=== PATIENT | male | born 1945 | race Caucasian/White ===

== ENCOUNTER 2017-04-03 17:53 | Emergency (ER) | payer MEDICARE, OTHER ==
[2017-04-03] MEDS ORDERED: SODIUM CHLORIDE 0.9% 1,000 ML IV ONE (18:36)
[2017-04-03] MEDS ORDERED: METOPROLOL 5 MG/5 ML VIAL IVP STA ×4 (18:37→19:27)
[2017-04-03] MEDS ORDERED: METOPROLOL 5 MG/5 ML VIAL IVP ONE ×3 (18:39→19:35)
--- NOTE | 2017-04-03 18:40 | ED Physician Documentation ---
PD HPI CHEST PAIN - Stated complaint Stated Complaint: RAPID HB - Chief complaint Chief Complaint: Cardiac - History obtained from History obtained from: Patient - History of Present Illness Timing - onset: How many hours ago (2 1/2) Timing - onset during: Rest Timing - duration: Hours (2 1/2, could feel distinctly the onset of the heart rate going fast. Has had this briefly for 5-20 minutes a few times over the past couple of months. No findings on ECGs. Has Holter on and reportedly had brief episode yesterday which was resulted to Cardiology and was rapid atrial fib self limited. His Piano Regulator Inspector is changing his metoprolol dose and starting him on Coumadin tomorrow. Now today episode with persistence longer than any prior. Denies chest pain, lgihtheadedness, dyspnea.) Timing - details: Abrupt onset, Still present Quality: Pressure, Other (mostly feeling heart rate is going fast.). No: Sharp , Tearing, Pain Location: Substernal Radiation: No: Neck, Back, Abdominal Improved by: No: Rest Worsened by: Exertion (faster feelign with walking around but not significantly. ) Associated symptoms: Palpitations (fast HR). No: Shortness of air, Diaphoresis , Nausea, Vomiting, Feeling faint / dizzy, General Weakness, Cough Similar symptoms before: No diagnosis Recently seen: Clinic (seen by Paliwal, Cardiology and has Holter on for past several days.) Review of Systems Constitutional: denies: Fever, Chills Nose: denies: Rhinorrhea / runny nose, Congestion Throat: denies: Sore throat Cardiac: reports: Palpitations. denies: Chest pain / pressure, Pedal edema, Calf pain Respiratory: denies: Dyspnea, Cough, Wheezing GI: denies: Abdominal Pain, Nausea, Vomiting, Diarrhea Musculoskeletal: denies: Extremity pain, Extremity swelling Neurologic: denies: Generalized weakness, Focal weakness, Numbness, Near syncope , Altered mental status Endocrine: denies: Weight loss, Easy bruising / bleeding Immunocompromised: denies: Immunocompromised PD PAST MEDICAL HISTORY - Past Medical History Cardiovascular: None Respiratory: None Neuro: None Endocrine/Autoimmune: None - Present Medications Home Medications: Ambulatory Orders Medication Instructions Recorded Confirmed Atorvastatin [Lipitor] 40 mg DAILY 04/03/17 04/03/17 Lisinopril 20 mg PO DAILY 04/03/17 04/03/17 Metoprolol Tartrate 50 mg PO BID 04/03/17 04/03/17 - Allergies Allergies/Adverse Reactions: Allergies Allergy/AdvReac Type Severity Reaction Status Date / Time No Known Drug Allergies Allergy Verified 04/03/17 18:45 - Living Situation Living Situation: reports: With spouse/s.o. Living Arrangement: reports: At home - Social History Does the pt smoke?: No Does the pt drink ETOH?: No Does the pt have substance abuse?: No - Family History Family history: reports: Non contributory PD ED PE NORMAL - Vitals Vital signs reviewed: Yes - General General: Alert and oriented X 3, No acute distress, Well developed/nourished - HEENT HEENT: Atraumatic, Pharynx benign - Neck Neck: Supple, no meningeal sign, No adenopathy - Cardiac Cardiac: No murmur. No: RRR (irregular and very fast at 160s. ) - Respiratory Respiratory: Clear bilaterally - Abdomen Abdomen: Soft, Non tender - Male Male : Deferred - Rectal Rectal: Deferred - Back Back: No CVA TTP - Derm Derm: Normal color, Warm and dry - Extremities Extremities: No tenderness to palpate, Normal ROM s pain, No edema, No calf tenderness / cord - Neuro Neuro: Alert and oriented X 3, credit administrator 2-12 intact, No motor deficit, No sensory deficit, Normal speech - Psych Psych: Normal mood, Normal affect Results - Vitals Vitals: Vital Signs - 24 hr 04/03/17 04/03/17 04/03/17 17:58 18:15 18:30 Heart Rate 152 H 160 H Respiratory 18 18 20 Rate Blood Pressure 181/122 H 173/116 H 149/99 H O2 Saturation 97 99 04/03/17 04/03/17 04/03/17 18:43 18:50 19:00 Heart Rate 129 H 134 H 127 H Respiratory 18 20 16 Rate Blood Pressure 129/107 H 148/100 H 129/90 H O2 Saturation 96 04/03/17 04/03/17 04/03/17 19:03 19:13 19:18 Heart Rate 124 H 123 H 122 H Respiratory 20 18 19 Rate Blood Pressure 129/90 H 130/85 H 122/98 H O2 Saturation 95 95 95 04/03/17 04/03/17 04/03/17 19:35 19:42 19:50 Heart Rate 123 H 124 H 124 H Respiratory 18 16 18 Rate Blood Pressure 127/87 H 113/92 H 111/87 H O2 Saturation 97 97 96 04/03/17 20:58 Heart Rate 63 Respiratory 16 Rate Blood Pressure 116/63 O2 Saturation 96 Oxygen O2 Source Room air - Labs Labs: Laboratory Tests 04/03/17 04/03/17 04/03/17 18:22 18:22 18:22 WBC 11.2 H RBC 4.65 L Hgb 15.5 Hct 46.8 MCV 100.7 H MCH 33.3 H MCHC 33.0 RDW 13.4 Plt Count 267 MPV 8.1 Neut # 7.5 H Lymph # 2.6 [place] # 0.8 Eos # 0.2 Baso # 0.1 Absolute Nucleated RBC 0.01 Nucleated RBCs 0.1 Sodium 142 Potassium 4.0 Chloride 105 Carbon Dioxide 24 Anion Gap 13.0 BUN 17 Creatinine 0.9 Estimated GFR (MDRD) 83 L Glucose 104 H Calcium 9.3 Magnesium 1.9 Total Bilirubin 1.3 H AST 35 ALT 34 Alkaline Phosphatase 67 B-Natriuretic Peptide 329 H Total Protein 7.4 Albumin 4.3 Globulin 3.1 Albumin/Globulin Ratio 1.4 Lipase 32 PD MEDICAL DECISION MAKING - ED course Complexity details: re-evaluated patient (heart rate slowed from 160s to 123 with IV meds. Was very regular at this rate but no P waves, so presume 3:1 flutter. Was going to cardiovert and had explained it and consenting, when he converted to NSR 60s medically. BP and alertness good. He feels okay. Remained in NSR and so was discharged. Plan already in place for changing beta karen, starting coumadin, and seeing Cardiology in follow up. ), considered differential, d/w patient - Critical Care Time(min): 40 Comments: IV doses of beta blockers to slow heart rate. Preparation for cardioversion but he converted spontaneously just prior. Time Includes: Direct patient care, Reassess patient, Document care, Coordinate care Data interpretation: Labs, Pulse ox Departure - Departure Disposition: 01 Home, Self Care Clinical Impression: Paroxysmal atrial fibrillation with rapid ventricular response Condition: Stable Record reviewed to determine appropriate education?: Yes Instructions: ED Afib Follow-Up: Helio Hills MD [Primary Care Provider] - Isra Og MD [Physician No Access] - Comments: Continue the new medication regimen started by your Cardiology office. Other medications as usual. Drink lots of fluids. Return if recurrent fast heart rate that does not stop after 20-30 minutes or if you have chest pain, lightheadedness, trouble breathing with it. Follow up Cardiology office, call them tomorrow about this episode, though will probably show on the heart monitor , bring them the ECG copies as well. Discharge Date/Time: 04/03/17 21:14
[2017-04-03 18:44] LABS: BASOPHILS # (AUTO) 0.1 10^3/uL (0.0-0.1); BASOPHILS % (AUTO) 0.6 %; EOSINOPHILS # (AUTO) 0.2 10^3/uL (0.0-0.7); EOSINOPHILS % (AUTO) 1.9 %; HCT - HEMATOCRIT 46.8 % (42.0-52.0); HGB - HEMOGLOBIN 15.5 g/dL (14.0-18.0); LYMPHOCYTES # (AUTO) 2.6 10^3/uL (1.5-3.5); LYMPHOCYTES % (AUTO) 23.3 %; MEAN CORPUSCULAR HEMOGLOBIN 33.3 pg (27.0-31.0); MEAN CORPUSCULAR VOLUME 100.7 fL (80.0-94.0); MEAN PLATELET VOLUME 8.1 fL (7.4-11.4); MONOCYTES # (AUTO) 0.8 10^3/uL (0.0-1.0); NEUTROPHILS # (AUTO) 7.5 10^3/uL (1.5-6.6); NEUTROPHILS % (AUTO) 67.2 %; NUCLEATED RED BLOOD CELLS AUTO 0.1 /100WBC; RED BLOOD COUNT 4.65 10^6/uL (4.70-6.10); RED CELL DISTRIBUTION WIDTH 13.4 % (12.0-15.0); UNCORRECTED WHITE BLOOD COUNT 11.2 x10^3/uL; WHITE BLOOD COUNT 11.2 x10^3/uL (4.8-10.8)
[2017-04-03 18:52] LABS: ALBUMIN/GLOBULIN RATIO 1.4 (1.0-2.2); BILIRUBIN,TOTAL 1.3 mg/dL (0.2-1.0); CALCIUM 9.3 mg/dL (8.5-10.3); CREATININE 0.9 mg/dL (0.6-1.2); MAGNESIUM 1.9 mg/dL (1.7-2.8); TOTAL PROTEIN 7.4 g/dL (6.7-8.2)
[2017-04-03] MEDS ORDERED: PROPOFOL 200 MG/20 ML VIAL IVP STA (19:27)
[2017-04-03] MEDS ORDERED: MORPHINE 10 MG/ML VIAL IVP STA (19:28)
[2017-04-03] MEDS ORDERED: MORPHINE 10 MG/ML VIAL ONE (19:56)
[2017-04-03] MEDS ORDERED: PROPOFOL 200 MG/20 ML VIAL IVP ONE (19:56)
[2017-04-03 20:59] VITALS: BP 116/63
== END 2017-04-03 21:14 | disposition home or self-care (01) ==
LOC: ED 17:53
DX: I48.0 Paroxysmal atrial fibrillation (principal)
CPT/HCPCS: 36415; 80053; 83690; 83735; 83880; 85025; 93005; 96374; 96376; 99284; 99291

== ENCOUNTER 2017-04-04 09:56 | Emergency (ER) | payer MEDICARE, OTHER ==
[2017-04-04] MEDS ORDERED: METOPROLOL 5 MG/5 ML VIAL IVP STA (10:09)
[2017-04-04] MEDS ORDERED: METOPROLOL 5 MG/5 ML VIAL IVP ONE (10:17)
[2017-04-04 10:41] LABS: CALCIUM 9.3 mg/dL (8.5-10.3); CREATININE 0.9 mg/dL (0.6-1.2); POTASSIUM 4.1 mmol/L (3.5-5.0)
--- NOTE | 2017-04-04 10:45 | ED Physician Documentation ---
History of Present Illness - Stated complaint Stated Complaint: RAPID HB, LIGHTHEADED - Chief complaint Chief Complaint: Cardiac - History obtained from History obtained from: Patient - Additonal information Additional information: The patient is a 71-year-old male who presents with "racing heart rate" and transient lightheadedness, that has been "up and down all morning." He has a history of paroxysmal atrial fibrillation, and was seen here last night with an episode of A. fib. It converted last night with IV Lopressor. This morning the patient took his normal medication, including metoprolol, which was recently increased to 75 mg twice daily. He also drank 3-1/2 cups of coffee, which is his norm. He returns now because of recurrent atrial fibrillation with associated transient lightheadedness when standing. He denies chest pain or shortness of breath. He is anticoagulated, on warfarin. Review of Systems Constitutional: denies: Fever Ears: denies: Tinnitus/ringing Nose: denies: Congestion Cardiac: reports: Palpitations. denies: Chest pain / pressure Respiratory: denies: Dyspnea, Cough GI: denies: Abdominal Pain, Nausea, Vomiting : denies: Dysuria Skin: denies: Rash Musculoskeletal: denies: Back pain, Extremity swelling Neurologic: denies: Focal weakness, Numbness, Headache PD PAST MEDICAL HISTORY - Past Medical History Past Medical History: Yes Cardiovascular: Hypertension, High cholesterol, Atrial fibrillation, Arrhythmia Respiratory: None Neuro: None Endocrine/Autoimmune: None Musculoskeletal: Osteoarthritis Other Past Medical History: V tach episodes with A-fib w/RVR 04/03 - Past Surgical History Past Surgical History: Yes General: Cholecystectomy Ortho: Hip replacement - Present Medications Home Medications: Ambulatory Orders Medication Instructions Recorded Confirmed Atorvastatin [Lipitor] 40 mg DAILY 04/03/17 04/04/17 Lisinopril 20 mg PO DAILY 04/03/17 04/04/17 Metoprolol Tartrate 75 mg PO BID 04/03/17 04/04/17 Warfarin [Coumadin] 5 mg PO 1400 04/04/17 04/04/17 - Allergies Allergies/Adverse Reactions: Allergies Allergy/AdvReac Type Severity Reaction Status Date / Time No Known Drug Allergies Allergy Verified 04/04/17 10:29 - Social History Does the pt smoke?: No Smoking Status: Current every day smoker Does the pt drink ETOH?: No Does the pt have substance abuse?: No PD ED PE NORMAL - Vitals Vital signs reviewed: Yes (tachycardic) - General General: Alert and oriented X 3, Well developed/nourished - HEENT HEENT: Atraumatic, Pharynx benign - Neck Neck: No adenopathy, No JVD - Cardiac Cardiac: No murmur, Other (Rapid rate, irregularly irregular rhythm.) - Respiratory Respiratory: No respiratory distress, Clear bilaterally - Abdomen Abdomen: Soft, Non tender - Back Back: No CVA TTP - Derm Derm: No rash - Extremities Extremities: No edema, No calf tenderness / cord - Neuro Neuro: Alert and oriented X 3, No motor deficit, No sensory deficit, Normal speech Results - Vitals Vitals: Vital Signs - 24 hr 04/04/17 04/04/17 04/04/17 10:01 10:15 10:20 Temperature 36.6 C Heart Rate 153 H 143 H 138 H Respiratory 20 16 18 Rate Blood Pressure 151/102 H 169/90 H 159/128 H O2 Saturation 99 04/04/17 04/04/17 04/04/17 10:25 10:33 10:35 Temperature Heart Rate 128 H 124 H 63 Respiratory 16 16 Rate Blood Pressure 148/95 H 148/95 H 131/67 H O2 Saturation 98 98 04/04/17 12:27 Temperature 36.5 C Heart Rate 68 Respiratory 14 Rate Blood Pressure 118/57 L O2 Saturation 98 Oxygen O2 Source Room air - EKG (time done) 10:08 Rate: Rate (enter#) (142) Rhythm: Atrial fibrillation [place]: Normal Computer interpretation: Agree with computer 11:37 Rate: Rate (enter#) (54) Rhythm: NSR, Other (supraventricular bigeminy.) [place]: Normal Intervals: Normal AR Ischemia: ST depression (Borderline ST depression in anterior leads V3, V4.) Compare to prior EKG: Changed from prior EKG (No longer in atrial fibrillation.) Computer interpretation: Agree with computer - Labs Labs: Laboratory Tests 04/04/17 04/04/17 04/04/17 10:13 10:13 10:13 Sodium 141 Potassium 4.1 Chloride 105 Carbon Dioxide 26 Anion Gap 10.0 BUN 19 Creatinine 0.9 Estimated GFR (MDRD) 83 L Glucose 127 H Calcium 9.3 Troponin I < 0.04 TSH 0.82 PD MEDICAL DECISION MAKING - ED course Complexity details: reviewed old records, reviewed results, re-evaluated patient , considered differential, d/w patient ED course: The patient's presentation is significant for recurrent atrial fibrillation with rapid ventricular response. Chemistry panel reveals normal electrolytes, troponin is negative, and TSH is within normal limits. Treatment in the emergency department included administration of IV metoprolol, 5 mg. The patient's rhythm converted to normal sinus with this treatment. Repeat electrocardiogram reveals no ischemic abnormalities. I advised him that decreasing his caffeine intake may decrease the propensity for recurrent atrial fibrillation. He will continue taking the recently increased dose of metoprolol. I discussed with him potentially worrisome signs or symptoms that should prompt reevaluation in the emergency department. Departure - Departure Disposition: 01 Home, Self Care Clinical Impression: Paroxysmal atrial fibrillation with rapid ventricular response Condition: Stable Instructions: ED Afib Follow-Up: Helio Hills MD [Primary Care Provider] - Isra Og MD [Physician No Access] - Comments: Continue metoprolol as recently adjusted by your fig caprifier. Decrease caffeine intake. Follow up with your fig caprifier as planned. Return to the emergency department if you develop recurrent persistent tachycardia, chest pain, shortness of breath, or otherwise worsening symptoms. Discharge Date/Time: 04/04/17 12:27
[2017-04-04 12:29] VITALS: BP 118/57
== END 2017-04-04 12:27 | disposition home or self-care (01) ==
LOC: ED 09:56
DX: I48.0 Paroxysmal atrial fibrillation (principal); I10 Essential (primary) hypertension; F17.200 Nicotine dependence, unspecified, uncomplicated; Z79.01 Long term (current) use of anticoagulants; Z96.649 Presence of unspecified artificial hip joint
CPT/HCPCS: 36415; 80048; 84443; 84484; 93005; 96374; 99284

== ENCOUNTER 2017-06-23 10:53 | Outpatient (CLI) | payer MEDICARE, OTHER | END 2017-06-23 10:54 | disposition home or self-care (01) | LOC: SC 10:53 | PROVIDERS: ATTEND Internal Medicine Pulmonary Disease | DX: I10 Essential (primary) hypertension (principal); I48.0 Paroxysmal atrial fibrillation; E66.3 Overweight | CPT/HCPCS: 99203; G0463; 99212 ==

== ENCOUNTER 2022-02-05 10:37 | Outpatient (CLI) | payer MEDICARE, OTHER ==
[2022-02-05 11:43] LABS: BASOPHILS # (AUTO) 0.1 10^3/uL (0.0-0.1); BASOPHILS % (AUTO) 0.7 %; EOSINOPHILS # (AUTO) 0.2 10^3/uL (0.0-0.7); EOSINOPHILS % (AUTO) 2.5 %; HCT - HEMATOCRIT 45.1 % (42.0-52.0); HGB - HEMOGLOBIN 14.5 g/dL (14.0-18.0); LYMPHOCYTES # (AUTO) 1.5 10^3/uL (1.5-3.5); LYMPHOCYTES % (AUTO) 16.5 %; MEAN CORPUSCULAR HEMOGLOBIN 32.7 pg (27.0-31.0); MEAN CORPUSCULAR HGB CONC 32.2 g/dL (32.0-36.0); MEAN CORPUSCULAR VOLUME 101.8 fL (80.0-94.0); MEAN PLATELET VOLUME 9.8 fL (7.4-11.4); MONOCYTES # (AUTO) 0.6 10^3/uL (0.0-1.0); MONOCYTES % (AUTO) 6.9 %; NEUTROPHILS # (AUTO) 6.8 10^3/uL (1.5-6.6); NEUTROPHILS % (AUTO) 73.1 %; PLT - PLATELET COUNT 293 10^3/uL (130-450); RED BLOOD COUNT 4.43 10^6/uL (4.70-6.10); RED CELL DISTRIBUTION WIDTH 13.2 % (12.0-15.0); WHITE BLOOD COUNT 9.2 x10^3/uL (4.8-10.8)
[2022-02-05 12:11] LABS: ALBUMIN 3.7 g/dL (3.2-5.5); ALBUMIN/GLOBULIN RATIO 0.9 (1.0-2.2); BILIRUBIN,TOTAL 0.9 mg/dL (0.2-1.0); CALCIUM 9.5 mg/dL (8.5-10.3); CREATININE 0.8 mg/dL (0.6-1.2); CRP - C-REACTIVE PROTEIN 3.1 mg/dL (0-1.0); POTASSIUM 4.6 mmol/L (3.5-5.0); TOTAL PROTEIN 7.6 g/dL (6.7-8.2); URIC ACID 5.8 mg/dL (2.6-7.2)
== END 2022-02-05 23:59 | disposition home or self-care (01) ==
LOC: LAB.N 10:37
PROVIDERS: ATTEND Registered Nurse
DX: R22.42 Localized swelling, mass and lump, left lower limb (principal)
CPT/HCPCS: 36415; 80053; 84550; 85025; 86140

== ENCOUNTER 2023-04-08 01:51 | Emergency (ER) | payer MEDICARE, OTHER ==
--- OUTSIDE RECORDS SUMMARY | 2023-04-08 02:00 | EXTERNAL MEDICAL SUMMARY RPT | Continuity of Care Document ---
Author Name Unknown Address [address] [place] [address] Phone Organization [facility] Address [address] [place] [address] Phone Care Team Providers Care Medical Manager Name Role Phone [place] Unavailable Unavailable Problems date description facility 2023-03-06 07:13 Scoliosis, unspecified [facility] 2023-03-06 07:13 Spondylosis without myelopathy or radiculopathy, [facility] 2023-03-06 08:06 Scoliosis, unspecified [facility] 2023-03-06 08:06 Spondylosis without myelopathy or radiculopathy, [facility] Results/Labs test date author facility value unit interpretation Result panel 1 (unknown) (no date) (unknown) (unknown) (no value) (units unknown) (unknown) (unknown) (no date) (unknown) (unknown) [id number] (units unknown) (unknown) (unknown) (no date) (unknown) (unknown) 02/10/23 (units unknown) (unknown) (unknown) (no date) (unknown) (unknown) 02/10/23] (units unknown) (unknown) (unknown) (no date) (unknown) (unknown) 05/22/22 [Hist ory Confirmed 02/10/23] (units unknown) (unknown) (unknown) (no date) (unknown) (unknown) 09/23/22 [Hist ory Confirmed 02/10/23] (units unknown) (unknown) (unknown) (no date) (unknown) (unknown) Accompanied by : Self / Same As Patient (units unknown) (unknown) (unknown) (no date) (unknown) (unknown) Age/Sex: 77 / M Date of Service: (units unknown) (unknown) (unknown) (no date) (unknown) (unknown) Allergies (units unknown) (unknown) (unknown) (no date) (unknown) (unknown) [place] [id number] (units unknown) (unknown) (unknown) (no date) (unknown) (unknown) Attending Dr: Estuardo Loving D.O. (units unknown) (unknown) (unknown) (no date) (unknown) (unknown) Brother Cancer (unit s unknown) (unknown) (unknown) (no date) (unknown) (unknown) Chronic anticoagulation (units unknown) (unknown) (unknown) (no date) (unknown) (unknown) Confirmed 02/10/23] (units unknown) (unknown) (unknown) (no date) (unknown) (unknown) : 4 Acct:[id number] (units unknown) (unknown) (unknown) (no date) (unknown) (unknown) Dementia (units unknown) (unknown) (unknown) (no date) (unknown) (unknown) Dept at [phone] (units unknown) (unknown) (unknown) (no date) (unknown) (unknown) Documented By: Estuardo Loving D.O. 02/10/23 1518 (units unknown) (unknown) (unknown) (no date) (unknown) (unknown) Draft (units unknown) (unknown) (unknown) (no date) (unknown) (unknown) Facet arthropa thy, lumbar (units unknown) (unknown) (unknown) (no date) (unknown) (unknown) Family History (units unknown) (unknown) (unknown) (no date) (unknown) (unknown) Father Lung disease (units unknown) (unknown) (unknown) (no date) (unknown) (unknown) Grandmother De ceased Cancer (units unknown) (unknown) (unknown) (no date) (unknown) (unknown) H/O Mohs micro graphic surgery for skin cancer (units unknown) (unknown) (unknown) (no date) (unknown) (unknown) History of car diac radiofrequency ablation (units unknown) (unknown) (unknown) (no date) (unknown) (unknown) History of chr onic atrial fibrillation (units unknown) (unknown) (unknown) (no date) (unknown) (unknown) History of hip surge ry (units unknown) (unknown) (unknown) (no date) (unknown) (unknown) Hx of cholecystectom y (units unknown) (unknown) (unknown) (no date) (unknown) (unknown) Intake Clinical Staf f (units unknown) (unknown) (unknown) (no date) (unknown) (unknown) Intake Note: (units unknown) (unknown) (unknown) (no date) (unknown) (unknown) Intake perform ed by: Juanis Brink (units unknown) (unknown) (unknown) (no date) (unknown) (unknown) Intake (units unknown) (unknown) (unknown) (no date) (unknown) (unknown) LUMBAR SPINE (units unknown) (unknown) (unknown) (no date) (unknown) (unknown) Loc: PAIN (units unknown) (unknown) (unknown) (no date) (unknown) (unknown) Lumbar stenosi s with neurogenic claudication (units unknown) (unknown) (unknown) (no date) (unknown) (unknown) Medical Histor y (units unknown) (unknown) (unknown) (no date) (unknown) (unknown) Medications (units unknown) (unknown) (unknown) (no date) (unknown) (unknown) Mother Hypertension (units unknown) (unknown) (unknown) (no date) (unknown) (unknown) PFSH (units unknown) (unknown) (unknown) (no date) (unknown) (unknown) Pain Visit (units unknown) (unknown) (unknown) (no date) (unknown) (unknown) Patient: Yann Godoy MR#: M (units unknown) (unknown) (unknown) (no date) (unknown) (unknown) Reason For Visit (un its unknown) (unknown) (unknown) (no date) (unknown) (unknown) Scoliosis (units unknown) (unknown) (unknown) (no date) (unknown) (unknown) Signed By: (units unknown) (unknown) (unknown) (no date) (unknown) (unknown) Sister Stroke (units unknown) (unknown) (unknown) (no date) (unknown) (unknown) Smoking Status : Former smoker (units unknown) (unknown) (unknown) (no date) (unknown) (unknown) Stroke (units unknown) (unknown) (unknown) (no date) (unknown) (unknown) Surgical Histo ry (units unknown) (unknown) (unknown) (no date) (unknown) (unknown) [facility] (units unknown) (unknown) (unknown) (no date) (unknown) (unknown) This note may have been all or partially generated using voice recognition (units unknown) (unknown) (unknown) (no date) (unknown) (unknown) Tobacco + Subs tance Use (units unknown) (unknown) (unknown) (no date) (unknown) (unknown) Tobacco Status (unit s unknown) (unknown) (unknown) (no date) (unknown) (unknown) Visit Reasons: 4M FOLLOW UP, LUMBAR SPINE (units unknown) (unknown) (unknown) (no date) (unknown) (unknown) [History Confi rmed 02/10/23] (units unknown) (unknown) (unknown) (no date) (unknown) (unknown) amiodarone All ergy (Intermediate, Verified 02/10/23 15:19) (units unknown) (unknown) (unknown) (no date) (unknown) (unknown) amlodipine 5 m g tablet 5 mg PO DAILY 05/22/22 [History Confirmed 02/10/23] (units unknown) (unknown) (unknown) (no date) (unknown) (unknown) apixaban 5 mg tablet (Eliquis) 5 mg PO DAILY 05/22/22 [History Confirmed (units unknown) (unknown) (unknown) (no date) (unknown) (unknown) aspirin 81 mg tablet,delayed release (Adult Low Dose Aspirin) 81 mg PO DAILY (units unknown) (unknown) (unknown) (no date) (unknown) (unknown) atorvastatin 4 0 mg tablet 40 mg PO BEDTIME 05/22/22 [History Confirmed 02/10/23] (units unknown) (unknown) (unknown) (no date) (unknown) (unknown) chlorthalidone 25 mg tablet 12.5 mg PO DAILY 09/23/22 [History Confirmed (units unknown) (unknown) (unknown) (no date) (unknown) (unknown) cholecalcifero l (vitamin D3) 25 mcg (1,000 unit) capsule 25 mcg PO DAILY (units unknown) (unknown) (unknown) (no date) (unknown) (unknown) folic acid 1 m g tablet 1 mg PO DAILY 09/23/22 [History Confirmed 02/10/23] (units unknown) (unknown) (unknown) (no date) (unknown) (unknown) have occurred. If there are any questions, please contact the Medical Records (units unknown) (unknown) (unknown) (no date) (unknown) (unknown) lisinopril 40 mg tablet 40 mg PO DAILY 05/22/22 [History Confirmed 02/10/23] (units unknown) (unknown) (unknown) (no date) (unknown) (unknown) magnesium 200 mg tablet 200 mg PO DAILY 05/22/22 [History Confirmed 02/10/23] (units unknown) (unknown) (unknown) (no date) (unknown) (unknown) may occur. Occ asional wrong-word or 'sound-alike' substitutions may have (units unknown) (unknown) (unknown) (no date) (unknown) (unknown) mecobalamin (v itamin B12) 5,000 mcg disintegrating tablet 5,000 mcg PO DAILY (units unknown) (unknown) (unknown) (no date) (unknown) (unknown) metoprolol suc cinate 50 mg tablet,extended release 24 hr tab PO 05/22/22 (units unknown) (unknown) (unknown) (no date) (unknown) (unknown) occurred due t o the inherent limitations of voice recognition software. Please (units unknown) (unknown) (unknown) (no date) (unknown) (unknown) omeprazole 20 mg capsule,delayed release 20 mg PO DAILY 05/22/22 [History (units unknown) (unknown) (unknown) (no date) (unknown) (unknown) potassium chlo ride 10 mEq capsule,extended release 10 meq PO DAILY 05/22/22 (units unknown) (unknown) (unknown) (no date) (unknown) (unknown) pyridoxine (vi tamin B6) 100 mg tablet 50 mg PO DAILY 05/22/22 [History Confirmed (units unknown) (unknown) (unknown) (no date) (unknown) (unknown) read the note carefully and recognize, using context, where these substitutions (units unknown) (unknown) (unknown) (no date) (unknown) (unknown) software. Alth ough every effort is made to edit content, container maker errors (units unknown) (unknown) (unknown) (no date) (unknown) (unknown) sotalol 80 mg tablet 80 mg PO DAILY 05/22/22 [History Confirmed 02/10/23] (units unknown) (unknown) (unknown) (no date) (unknown) (unknown) tamsulosin 0.4 mg capsule cap PO 05/22/22 [History Confirmed 02/10/23] (units unknown) (unknown) Result panel 2 (unknown) (no date) (unknown) (unknown) (no value) (units unknown) (unknown) (unknown) (no date) (unknown) (unknown) [id number] (units unknown) (unknown) (unknown) (no date) (unknown) (unknown) 02/10/23 (units unknown) (unknown) (unknown) (no date) (unknown) (unknown) 02/10/23] (units unknown) (unknown) (unknown) (no date) (unknown) (unknown) 05/22/22 [Hist ory Confirmed 02/10/23] (units unknown) (unknown) (unknown) (no date) (unknown) (unknown) 09/23/22 [Hist ory Confirmed 02/10/23] (units unknown) (unknown) (unknown) (no date) (unknown) (unknown) 15:27 (units unknown) (unknown) (unknown) (no date) (unknown) (unknown) Accompanied by : Self / Same As Patient (units unknown) (unknown) (unknown) (no date) (unknown) (unknown) Age/Sex: 77 / M Date of Service: (units unknown) (unknown) (unknown) (no date) (unknown) (unknown) Allergies (units unknown) (unknown) (unknown) (no date) (unknown) (unknown) [place] [address] (units unknown) (unknown) (unknown) (no date) (unknown) (unknown) Attending Dr: Estuardo Loving D.O. (units unknown) (unknown) (unknown) (no date) (unknown) (unknown) BMI 27.6 (units unknown) (unknown) (unknown) (no date) (unknown) (unknown) BP 130/78 (units unknown) (unknown) (unknown) (no date) (unknown) (unknown) Blood Pressure Location Rt brachial (units unknown) (unknown) (unknown) (no date) (unknown) (unknown) Brother Cancer (unit s unknown) (unknown) (unknown) (no date) (unknown) (unknown) Chronic anticoagulation (units unknown) (unknown) (unknown) (no date) (unknown) (unknown) Confirmed 02/10/23] (units unknown) (unknown) (unknown) (no date) (unknown) (unknown) : 4 Acct:[id number] (units unknown) (unknown) (unknown) (no date) (unknown) (unknown) Dementia (units unknown) (unknown) (unknown) (no date) (unknown) (unknown) Dept at . (units unknown) (unknown) (unknown) (no date) (unknown) (unknown) Documented By: Estuardo Loving D.O. 02/10/23 1518 (units unknown) (unknown) (unknown) (no date) (unknown) (unknown) Draft (units unknown) (unknown) (unknown) (no date) (unknown) (unknown) Facet arthropa thy, lumbar (units unknown) (unknown) (unknown) (no date) (unknown) (unknown) Family History (units unknown) (unknown) (unknown) (no date) (unknown) (unknown) Father Lung disease (units unknown) (unknown) (unknown) (no date) (unknown) (unknown) Grandmother De ceased Cancer (units unknown) (unknown) (unknown) (no date) (unknown) (unknown) H/O Mohs micro graphic surgery for skin cancer (units unknown) (unknown) (unknown) (no date) (unknown) (unknown) Height 5 ft 8.5 in ( units unknown) (unknown) (unknown) (no date) (unknown) (unknown) History of car diac radiofrequency ablation (units unknown) (unknown) (unknown) (no date) (unknown) (unknown) History of chr onic atrial fibrillation (units unknown) (unknown) (unknown) (no date) (unknown) (unknown) History of hip surge ry (units unknown) (unknown) (unknown) (no date) (unknown) (unknown) Hx of cholecystectom y (units unknown) (unknown) (unknown) (no date) (unknown) (unknown) Intake Clinical Staf f (units unknown) (unknown) (unknown) (no date) (unknown) (unknown) Intake Note: (units unknown) (unknown) (unknown) (no date) (unknown) (unknown) Intake perform ed by: Juanis Brink (units unknown) (unknown) (unknown) (no date) (unknown) (unknown) Intake (units unknown) (unknown) (unknown) (no date) (unknown) (unknown) Is patient in pain?: Yes (HERE FOR LUMBAR AND LBP) Pain scale (1-10): 4 (units unknown) (unknown) (unknown) (no date) (unknown) (unknown) LUMBAR SPINE (units unknown) (unknown) (unknown) (no date) (unknown) (unknown) Loc: PAIN (units unknown) (unknown) (unknown) (no date) (unknown) (unknown) Lumbar stenosi s with neurogenic claudication (units unknown) (unknown) (unknown) (no date) (unknown) (unknown) Medical Histor y (units unknown) (unknown) (unknown) (no date) (unknown) (unknown) Medications (units unknown) (unknown) (unknown) (no date) (unknown) (unknown) Mother Hypertension (units unknown) (unknown) (unknown) (no date) (unknown) (unknown) Oxygen Deliver y Method room air (units unknown) (unknown) (unknown) (no date) (unknown) (unknown) PFSH (units unknown) (unknown) (unknown) (no date) (unknown) (unknown) Pain Scale (units unknown) (unknown) (unknown) (no date) (unknown) (unknown) Pain Visit (units unknown) (unknown) (unknown) (no date) (unknown) (unknown) Patient: Yann Godoy MR#: M (units unknown) (unknown) (unknown) (no date) (unknown) (unknown) Position Sitting (un its unknown) (unknown) (unknown) (no date) (unknown) (unknown) Pulse 78 (units unknown) (unknown) (unknown) (no date) (unknown) (unknown) Pulse Oximetry (%) 1 00 (units unknown) (unknown) (unknown) (no date) (unknown) (unknown) Pulse Source Monitor (units unknown) (unknown) (unknown) (no date) (unknown) (unknown) Reason For Visit (un its unknown) (unknown) (unknown) (no date) (unknown) (unknown) Scoliosis (units unknown) (unknown) (unknown) (no date) (unknown) (unknown) Signed By: (units unknown) (unknown) (unknown) (no date) (unknown) (unknown) Sister Stroke (units unknown) (unknown) (unknown) (no date) (unknown) (unknown) Smoking Status : Former smoker (units unknown) (unknown) (unknown) (no date) (unknown) (unknown) Stroke (units unknown) (unknown) (unknown) (no date) (unknown) (unknown) Surgical Histo ry (units unknown) (unknown) (unknown) (no date) (unknown) (unknown) Temp 97.7 F (units unknown) (unknown) (unknown) (no date) (unknown) (unknown) Temp Source Te mporal Artery Scan (units unknown) (unknown) (unknown) (no date) (unknown) (unknown) [facility] (units unknown) (unknown) (unknown) (no date) (unknown) (unknown) This note may have been all or partially generated using voice recognition (units unknown) (unknown) (unknown) (no date) (unknown) (unknown) Tobacco + Subs tance Use (units unknown) (unknown) (unknown) (no date) (unknown) (unknown) Tobacco Status (unit s unknown) (unknown) (unknown) (no date) (unknown) (unknown) Visit Reasons: 4M FOLLOW UP, LUMBAR SPINE (units unknown) (unknown) (unknown) (no date) (unknown) (unknown) Vitals (units unknown) (unknown) (unknown) (no date) (unknown) (unknown) Weight 184 lb (units unknown) (unknown) (unknown) (no date) (unknown) (unknown) [History Confi rmed 02/10/23] (units unknown) (unknown) (unknown) (no date) (unknown) (unknown) amiodarone All ergy (Intermediate, Verified 02/10/23 15:19) (units unknown) (unknown) (unknown) (no date) (unknown) (unknown) amlodipine 5 m g tablet 5 mg PO DAILY 05/22/22 [History Confirmed 02/10/23] (units unknown) (unknown) (unknown) (no date) (unknown) (unknown) apixaban 5 mg tablet (Eliquis) 5 mg PO DAILY 05/22/22 [History Confirmed (units unknown) (unknown) (unknown) (no date) (unknown) (unknown) aspirin 81 mg tablet,delayed release (Adult Low Dose Aspirin) 81 mg PO DAILY (units unknown) (unknown) (unknown) (no date) (unknown) (unknown) atorvastatin 4 0 mg tablet 40 mg PO BEDTIME 05/22/22 [History Confirmed 02/10/23] (units unknown) (unknown) (unknown) (no date) (unknown) (unknown) chlorthalidone 25 mg tablet 12.5 mg PO DAILY 09/23/22 [History Confirmed (units unknown) (unknown) (unknown) (no date) (unknown) (unknown) cholecalcifero l (vitamin D3) 25 mcg (1,000 unit) capsule 25 mcg PO DAILY (units unknown) (unknown) (unknown) (no date) (unknown) (unknown) folic acid 1 m g tablet 1 mg PO DAILY 09/23/22 [History Confirmed 02/10/23] (units unknown) (unknown) (unknown) (no date) (unknown) (unknown) have occurred. If there are any questions, please contact the Medical Records (units unknown) (unknown) (unknown) (no date) (unknown) (unknown) lisinopril 40 mg tablet 40 mg PO DAILY 05/22/22 [History Confirmed 02/10/23] (units unknown) (unknown) (unknown) (no date) (unknown) (unknown) magnesium 200 mg tablet 200 mg PO DAILY 05/22/22 [History Confirmed 02/10/23] (units unknown) (unknown) (unknown) (no date) (unknown) (unknown) may occur. Occ asional wrong-word or 'sound-alike' substitutions may have (units unknown) (unknown) (unknown) (no date) (unknown) (unknown) mecobalamin (v itamin B12) 5,000 mcg disintegrating tablet 5,000 mcg PO DAILY (units unknown) (unknown) (unknown) (no date) (unknown) (unknown) metoprolol suc cinate 50 mg tablet,extended release 24 hr tab PO 05/22/22 (units unknown) (unknown) (unknown) (no date) (unknown) (unknown) occurred due t o the inherent limitations of voice recognition software. Please (units unknown) (unknown) (unknown) (no date) (unknown) (unknown) omeprazole 20 mg capsule,delayed release 20 mg PO DAILY 05/22/22 [History (units unknown) (unknown) (unknown) (no date) (unknown) (unknown) potassium chlo ride 10 mEq capsule,extended release 10 meq PO DAILY 05/22/22 (units unknown) (unknown) (unknown) (no date) (unknown) (unknown) pyridoxine (vi tamin B6) 100 mg tablet 50 mg PO DAILY 05/22/22 [History Confirmed (units unknown) (unknown) (unknown) (no date) (unknown) (unknown) read the note carefully and recognize, using context, where these substitutions (units unknown) (unknown) (unknown) (no date) (unknown) (unknown) software. Alth ough every effort is made to edit content, container maker errors (units unknown) (unknown) (unknown) (no date) (unknown) (unknown) sotalol 80 mg tablet 80 mg PO DAILY 05/22/22 [History Confirmed 02/10/23] (units unknown) (unknown) (unknown) (no date) (unknown) (unknown) tamsulosin 0.4 mg capsule cap PO 05/22/22 [History Confirmed 02/10/23] (units unknown) (unknown) Result panel 3 (unknown) (no date) (unknown) (unknown) (no value) (units unknown) (unknown) (unknown) (no date) (unknown) (unknown) (1) Chronic anticoagulation: (units unknown) (unknown) (unknown) (no date) (unknown) (unknown) (2) History of chronic atrial fibrillation: (units unknown) (unknown) (unknown) (no date) (unknown) (unknown) (3) Scoliosis: (unit s unknown) (unknown) (unknown) (no date) (unknown) (unknown) (4) Facet arth ropathy, lumbar: (units unknown) (unknown) (unknown) (no date) (unknown) (unknown) (5) Lumbar ashkan nosis with neurogenic claudication: (units unknown) (unknown) (unknown) (no date) (unknown) (unknown) (6) History of cardiac radiofrequency ablation: (units unknown) (unknown) (unknown) (no date) (unknown) (unknown) (Modic type I and Modic type II changes). At least moderate disc bulge is seen, (units unknown) (unknown) (unknown) (no date) (unknown) (unknown) [id number] (units unknown) (unknown) (unknown) (no date) (unknown) (unknown) 02/10/23 (units unknown) (unknown) (unknown) (no date) (unknown) (unknown) 02/10/23] (units unknown) (unknown) (unknown) (no date) (unknown) (unknown) 05/22/22 [Hist ory Confirmed 02/10/23] (units unknown) (unknown) (unknown) (no date) (unknown) (unknown) 09/19/2020, 8:00. (u nits unknown) (unknown) (unknown) (no date) (unknown) (unknown) 09/23/22 [Hist ory Confirmed 02/10/23] (units unknown) (unknown) (unknown) (no date) (unknown) (unknown) 15:27 (units unknown) (unknown) (unknown) (no date) (unknown) (unknown) 5:03. Outside Film, CR, XR LUMBAR SPINE WITH OBLIQUES PLUS FLEXION EXTENSION, (units unknown) (unknown) (unknown) (no date) (unknown) (unknown) Accompanied by : Self / Same As Patient (units unknown) (unknown) (unknown) (no date) (unknown) (unknown) Age/Sex: 77 / M Date of Service: (units unknown) (unknown) (unknown) (no date) (unknown) (unknown) All of his que stions were answered to the best my ability is in agreement with (units unknown) (unknown) (unknown) (no date) (unknown) (unknown) All other syst ems reviewed and are negative except as noted in HPI. (units unknown) (unknown) (unknown) (no date) (unknown) (unknown) Allergies (units unknown) (unknown) (unknown) (no date) (unknown) (unknown) [place] [address] (units unknown) (unknown) (unknown) (no date) (unknown) (unknown) Approved by: Piedad Guerra M.D. on 01/23/2022 at 11:39 (units unknown) (unknown) (unknown) (no date) (unknown) (unknown) Approved by: Jimena Oden M.D. on 03/20/2022 at 10:01 (units unknown) (unknown) (unknown) (no date) (unknown) (unknown) Assessment + Plan (u nits unknown) (unknown) (unknown) (no date) (unknown) (unknown) Attending Dr: Estuardo Loving D.O. (units unknown) (unknown) (unknown) (no date) (unknown) (unknown) BMI 27.6 (units unknown) (unknown) (unknown) (no date) (unknown) (unknown) BP 130/78 (units unknown) (unknown) (unknown) (no date) (unknown) (unknown) Blood Pressure Location Rt brachial (units unknown) (unknown) (unknown) (no date) (unknown) (unknown) Bones: Extensi ve degenerative change. Multilevel joint space obliteration and (units unknown) (unknown) (unknown) (no date) (unknown) (unknown) Brother Cancer (unit s unknown) (unknown) (unknown) (no date) (unknown) (unknown) COMPARISON: Ou tside Film, MR, MR LUMBAR SPINE WITHOUT CONTRAST, 09/14/2020, (units unknown) (unknown) (unknown) (no date) (unknown) (unknown) Yann and I did review his very positive response with her bilateral L4-5 L5 (units unknown) (unknown) (unknown) (no date) (unknown) (unknown) Chronic anticoagulation (units unknown) (unknown) (unknown) (no date) (unknown) (unknown) Compared to th e outside 2020 images, these imaging findings are believed to be (units unknown) (unknown) (unknown) (no date) (unknown) (unknown) Confirmed 02/10/23] (units unknown) (unknown) (unknown) (no date) (unknown) (unknown) : 4 Acct:[id number] (units unknown) (unknown) (unknown) (no date) (unknown) (unknown) DTR's symmetric. (un its unknown) (unknown) (unknown) (no date) (unknown) (unknown) Dementia (units unknown) (unknown) (unknown) (no date) (unknown) (unknown) Denies recent trauma, fever or weight loss of unknown origin, immunocompromise (units unknown) (unknown) (unknown) (no date) (unknown) (unknown) Dense atherosc lerotic calcifications. (units unknown) (unknown) (unknown) (no date) (unknown) (unknown) Dept at . (units unknown) (unknown) (unknown) (no date) (unknown) (unknown) Documented By: Estuardo Loving D.O. 02/10/23 1518 (units unknown) (unknown) (unknown) (no date) (unknown) (unknown) Draft (units unknown) (unknown) (unknown) (no date) (unknown) (unknown) EKTA due to his use of Eliquis elected to proceed with facet mediated (units unknown) (unknown) (unknown) (no date) (unknown) (unknown) Endorses chron ic atrial fibrillation, chronic anticoagulation, lumbar stenosis (units unknown) (unknown) (unknown) (no date) (unknown) (unknown) Exam Narrative (unit s unknown) (unknown) (unknown) (no date) (unknown) (unknown) Exam Narrative: (uni ts unknown) (unknown) (unknown) (no date) (unknown) (unknown) Exam (units unknown) (unknown) (unknown) (no date) (unknown) (unknown) FINDINGS: (units unknown) (unknown) (unknown) (no date) (unknown) (unknown) Facet arthropa thy, lumbar (units unknown) (unknown) (unknown) (no date) (unknown) (unknown) Family History (units unknown) (unknown) (unknown) (no date) (unknown) (unknown) Father Lung disease (units unknown) (unknown) (unknown) (no date) (unknown) (unknown) Flexion/extens ion: There is normal range of motion, with preserved normal (units unknown) (unknown) (unknown) (no date) (unknown) (unknown) Gait: Full weightbearing. No assistive device. Stooped Gait Posture due to (units unknown) (unknown) (unknown) (no date) (unknown) (unknown) General: The p atient is in no obvious distress. Normal affect. Fully (units unknown) (unknown) (unknown) (no date) (unknown) (unknown) Grandmother De ceased Cancer (units unknown) (unknown) (unknown) (no date) (unknown) (unknown) H/O Mohs micro graphic surgery for skin cancer (units unknown) (unknown) (unknown) (no date) (unknown) (unknown) He has done ve ry well status post bilateral L4-5 L5-S1 facet joint injections (units unknown) (unknown) (unknown) (no date) (unknown) (unknown) Height 5 ft 8.5 in ( units unknown) (unknown) (unknown) (no date) (unknown) (unknown) History of car diac radiofrequency ablation (units unknown) (unknown) (unknown) (no date) (unknown) (unknown) History of chr onic atrial fibrillation (units unknown) (unknown) (unknown) (no date) (unknown) (unknown) History of hip surge ry (units unknown) (unknown) (unknown) (no date) (unknown) (unknown) Hx of cholecystectom y (units unknown) (unknown) (unknown) (no date) (unknown) (unknown) IMPRESSION: Ad vanced degenerative change. No abnormal motion on flexion and (units unknown) (unknown) (unknown) (no date) (unknown) (unknown) IMPRESSION: Mu ltiple levels of relatively prominent lumbar spine degenerative (units unknown) (unknown) (unknown) (no date) (unknown) (unknown) INDICATIONS: pain (u nits unknown) (unknown) (unknown) (no date) (unknown) (unknown) Informed conse nt was obtained today without guarantees or assurances of complete (units unknown) (unknown) (unknown) (no date) (unknown) (unknown) Intake Clinical Staf f (units unknown) (unknown) (unknown) (no date) (unknown) (unknown) Intake Note: (units unknown) (unknown) (unknown) (no date) (unknown) (unknown) Intake perform ed by: Juanis Brink (units unknown) (unknown) (unknown) (no date) (unknown) (unknown) Intake (units unknown) (unknown) (unknown) (no date) (unknown) (unknown) Is patient in pain?: Yes (HERE FOR LUMBAR AND LBP) Pain scale (1-10): 4 (units unknown) (unknown) (unknown) (no date) (unknown) (unknown) L4-L5: Moderat e to severe loss of disc height and disc signal can be seen. (units unknown) (unknown) (unknown) (no date) (unknown) (unknown) L5-S1: There i s at least moderate loss of disc height and disc signal . Moderate (units unknown) (unknown) (unknown) (no date) (unknown) (unknown) LUMBAR SPINE (units unknown) (unknown) (unknown) (no date) (unknown) (unknown) Left Lower Ext remity: No edema, joint effusion or atrophy. tenderness over the (units unknown) (unknown) (unknown) (no date) (unknown) (unknown) Left Upper Ext remity: Left upper extremity exam shows grossly normal alignment, (units unknown) (unknown) (unknown) (no date) (unknown) (unknown) Loc: PAIN (units unknown) (unknown) (unknown) (no date) (unknown) (unknown) Lumbar stenosi s with neurogenic claudication (units unknown) (unknown) (unknown) (no date) (unknown) (unknown) MSK: System re viewed and no additional complaints, except as documented. (units unknown) (unknown) (unknown) (no date) (unknown) (unknown) Medical Histor y (units unknown) (unknown) (unknown) (no date) (unknown) (unknown) Medications (units unknown) (unknown) (unknown) (no date) (unknown) (unknown) Mother Hypertension (units unknown) (unknown) (unknown) (no date) (unknown) (unknown) Neuro: System reviewed and no additional complaints, except as documented. (units unknown) (unknown) (unknown) (no date) (unknown) (unknown) Neurologic: Se nsation is grossly intact to light touch throughout the upper and (units unknown) (unknown) (unknown) (no date) (unknown) (unknown) Objective Data (unit s unknown) (unknown) (unknown) (no date) (unknown) (unknown) Objective Data: (uni ts unknown) (unknown) (unknown) (no date) (unknown) (unknown) Orders (units unknown) (unknown) (unknown) (no date) (unknown) (unknown) Orders: (units unknown) (unknown) (unknown) (no date) (unknown) (unknown) Oxygen Deliver y Method room air (units unknown) (unknown) (unknown) (no date) (unknown) (unknown) PAIN l/s facet inj/blk 1st asha Today M41.9 - Scoliosis, unspecified, M47.816 (units unknown) (unknown) (unknown) (no date) (unknown) (unknown) PFSH (units unknown) (unknown) (unknown) (no date) (unknown) (unknown) PROCEDURE: XR LUMBAR SPINE WITH FLEXION EXTENSION 5 VIEWS (units unknown) (unknown) (unknown) (no date) (unknown) (unknown) Pain Scale (units unknown) (unknown) (unknown) (no date) (unknown) (unknown) Pain Visit (units unknown) (unknown) (unknown) (no date) (unknown) (unknown) Patient: Yann Godoy MR#: M (units unknown) (unknown) (unknown) (no date) (unknown) (unknown) Plan (units unknown) (unknown) (unknown) (no date) (unknown) (unknown) Position Sitting (un its unknown) (unknown) (unknown) (no date) (unknown) (unknown) Pulse 78 (units unknown) (unknown) (unknown) (no date) (unknown) (unknown) Pulse Oximetry (%) 1 00 (units unknown) (unknown) (unknown) (no date) (unknown) (unknown) Pulse Source Monitor (units unknown) (unknown) (unknown) (no date) (unknown) (unknown) Qualifiers: (units unknown) (unknown) (unknown) (no date) (unknown) (unknown) ROS Narrative (units unknown) (unknown) (unknown) (no date) (unknown) (unknown) ROS Narrative: (unit s unknown) (unknown) (unknown) (no date) (unknown) (unknown) ROS (units unknown) (unknown) (unknown) (no date) (unknown) (unknown) Reactive (units unknown) (unknown) (unknown) (no date) (unknown) (unknown) Reason For Visit (un its unknown) (unknown) (unknown) (no date) (unknown) (unknown) Reviewed by: Piedad Guerra M.D. on 01/23/2022 at 11:28 (units unknown) (unknown) (unknown) (no date) (unknown) (unknown) Reviewed by: Jimena Oden M.D. on 03/20/2022 at 9:53 (units unknown) (unknown) (unknown) (no date) (unknown) (unknown) Right Lower Ex tremity: No edema, effusion or atrophy. tenderness over the (units unknown) (unknown) (unknown) (no date) (unknown) (unknown) Right Upper Ex tremity: Right upper extremity exam shows grossly normal (units unknown) (unknown) (unknown) (no date) (unknown) (unknown) S1 facet joint injection performed on 06/11/2022. He has complete resolution of (units unknown) (unknown) (unknown) (no date) (unknown) (unknown) Scoliosis type : idiopathic Idiopathic scoliosis type: other Spinal (units unknown) (unknown) (unknown) (no date) (unknown) (unknown) Scoliosis (units unknown) (unknown) (unknown) (no date) (unknown) (unknown) Signed By: (units unknown) (unknown) (unknown) (no date) (unknown) (unknown) Sister Stroke (units unknown) (unknown) (unknown) (no date) (unknown) (unknown) Skin: No signi ficant skin lesions are noted. (units unknown) (unknown) (unknown) (no date) (unknown) (unknown) Smoking Status : Former smoker (units unknown) (unknown) (unknown) (no date) (unknown) (unknown) Soft tissues: Overlying bowel gas pattern is normal. No suspicious soft tissue (units unknown) (unknown) (unknown) (no date) (unknown) (unknown) Spine: Cervica l spine ROM functional. Lumbar spine ROM was reduced in all (units unknown) (unknown) (unknown) (no date) (unknown) (unknown) Spondylosis wi thout myelopathy or radiculopathy, lumbar region (units unknown) (unknown) (unknown) (no date) (unknown) (unknown) Status: Acute (units unknown) (unknown) (unknown) (no date) (unknown) (unknown) Stroke (units unknown) (unknown) (unknown) (no date) (unknown) (unknown) Surgical Histo ry (units unknown) (unknown) (unknown) (no date) (unknown) (unknown) TECHNIQUE: 5 v iews of the lumbar spine acquired, including flexion and extension (units unknown) (unknown) (unknown) (no date) (unknown) (unknown) Temp 97.7 F (units unknown) (unknown) (unknown) (no date) (unknown) (unknown) Temp Source Te mporal Artery Scan (units unknown) (unknown) (unknown) (no date) (unknown) (unknown) [facility] (units unknown) (unknown) (unknown) (no date) (unknown) (unknown) This note may have been all or partially generated using voice recognition (units unknown) (unknown) (unknown) (no date) (unknown) (unknown) Tobacco + Subs tance Use (units unknown) (unknown) (unknown) (no date) (unknown) (unknown) Tobacco Status (unit s unknown) (unknown) (unknown) (no date) (unknown) (unknown) Visit Reasons: 4M FOLLOW UP, LUMBAR SPINE (units unknown) (unknown) (unknown) (no date) (unknown) (unknown) Vitals (units unknown) (unknown) (unknown) (no date) (unknown) (unknown) We did review the above-stated procedure at length and verbal consent was (units unknown) (unknown) (unknown) (no date) (unknown) (unknown) We discussed h is mainly axial low back pain with some lower extremity neurogenic (units unknown) (unknown) (unknown) (no date) (unknown) (unknown) Weight 184 lb (units unknown) (unknown) (unknown) (no date) (unknown) (unknown) [History Confi rmed 02/10/23] (units unknown) (unknown) (unknown) (no date) (unknown) (unknown) alignment, ran ge of motion, strength and stability with no swelling, atrophy or (units unknown) (unknown) (unknown) (no date) (unknown) (unknown) alignment. (units unknown) (unknown) (unknown) (no date) (unknown) (unknown) amiodarone All ergy (Intermediate, Verified 02/10/23 15:19) (units unknown) (unknown) (unknown) (no date) (unknown) (unknown) amlodipine 5 m g tablet 5 mg PO DAILY 05/22/22 [History Confirmed 02/10/23] (units unknown) (unknown) (unknown) (no date) (unknown) (unknown) and S1. For tr ial, performing the medial branch blocks is justified by the (units unknown) (unknown) (unknown) (no date) (unknown) (unknown) another predom inant source of pain. If the second diagnostic medial branch block (units unknown) (unknown) (unknown) (no date) (unknown) (unknown) anterolisthesis of L 2 (units unknown) (unknown) (unknown) (no date) (unknown) (unknown) apixaban 5 mg tablet (Eliquis) 5 mg PO DAILY 05/22/22 [History Confirmed (units unknown) (unknown) (unknown) (no date) (unknown) (unknown) aspirin 81 mg tablet,delayed release (Adult Low Dose Aspirin) 81 mg PO DAILY (units unknown) (unknown) (unknown) (no date) (unknown) (unknown) at length his underlying pathology given his multilevel lumbosacral spondylosis (units unknown) (unknown) (unknown) (no date) (unknown) (unknown) atorvastatin 4 0 mg tablet 40 mg PO BEDTIME 05/22/22 [History Confirmed 02/10/23] (units unknown) (unknown) (unknown) (no date) (unknown) (unknown) axial LBP (units unknown) (unknown) (unknown) (no date) (unknown) (unknown) bilateral L4-L 5 and S1 medial branch blocks to see if ultimately his candidate (units unknown) (unknown) (unknown) (no date) (unknown) (unknown) bilateral neur al foraminal narrowing seen, with an associated a degree of (units unknown) (unknown) (unknown) (no date) (unknown) (unknown) bulge is seen, which is eccentric to the left. There is a superimposed central (units unknown) (unknown) (unknown) (no date) (unknown) (unknown) calcifications. (uni ts unknown) (unknown) (unknown) (no date) (unknown) (unknown) change can be seen, which are worst inferiorly. (units unknown) (unknown) (unknown) (no date) (unknown) (unknown) characteristic s involves primarily axial pain in the absence of clear radicular (units unknown) (unknown) (unknown) (no date) (unknown) (unknown) chlorthalidone 25 mg tablet 12.5 mg PO DAILY 09/23/22 [History Confirmed (units unknown) (unknown) (unknown) (no date) (unknown) (unknown) cholecalcifero l (vitamin D3) 25 mcg (1,000 unit) capsule 25 mcg PO DAILY (units unknown) (unknown) (unknown) (no date) (unknown) (unknown) claudication symptoms.? We discussed facet mediated interventions versus lumbar (units unknown) (unknown) (unknown) (no date) (unknown) (unknown) compression se en upon the exiting nerve roots. Mild to moderate central canal (units unknown) (unknown) (unknown) (no date) (unknown) (unknown) compression (units unknown) (unknown) (unknown) (no date) (unknown) (unknown) conservative t reatment efforts for longer than 3 months; 3) the clinical (units unknown) (unknown) (unknown) (no date) (unknown) (unknown) degenerative s coliosis as well with convexity to the right.? He was evaluated (units unknown) (unknown) (unknown) (no date) (unknown) (unknown) disc (units unknown) (unknown) (unknown) (no date) (unknown) (unknown) eccentric to t he right. Moderate facet joint hypertrophy is seen. There is (units unknown) (unknown) (unknown) (no date) (unknown) (unknown) effusion. (units unknown) (unknown) (unknown) (no date) (unknown) (unknown) extension. (units unknown) (unknown) (unknown) (no date) (unknown) (unknown) folic acid 1 m g tablet 1 mg PO DAILY 09/23/22 [History Confirmed 02/10/23] (units unknown) (unknown) (unknown) (no date) (unknown) (unknown) following considerations. 1) the patient has had a history of at least 3 months (units unknown) (unknown) (unknown) (no date) (unknown) (unknown) for medial bra nch rhizotomy would be prudent. Following insurance approval. I (units unknown) (unknown) (unknown) (no date) (unknown) (unknown) function, we w ould conclude that the tested joints are likely the relevant (units unknown) (unknown) (unknown) (no date) (unknown) (unknown) greater trocha nteric region (units unknown) (unknown) (unknown) (no date) (unknown) (unknown) greater trocha nteric region. (units unknown) (unknown) (unknown) (no date) (unknown) (unknown) have occurred. If there are any questions, please contact the Medical Records (units unknown) (unknown) (unknown) (no date) (unknown) (unknown) his axial low back pain save some morning stiffness. We did review knee was (units unknown) (unknown) (unknown) (no date) (unknown) (unknown) increased tend erness with axial loading and extension based maneuvers tenderness (units unknown) (unknown) (unknown) (no date) (unknown) (unknown) indicated. (units unknown) (unknown) (unknown) (no date) (unknown) (unknown) injury, stroke , paralysis and and the patient elected to proceed. (units unknown) (unknown) (unknown) (no date) (unknown) (unknown) interventions 1st.? (units unknown) (unknown) (unknown) (no date) (unknown) (unknown) intravenous dr ug use, sustained glucocorticoid use, osteoporosis, or a focal (units unknown) (unknown) (unknown) (no date) (unknown) (unknown) like to follow up and consider further interventions as necessary. We discussed (units unknown) (unknown) (unknown) (no date) (unknown) (unknown) lisinopril 40 mg tablet 40 mg PO DAILY 05/22/22 [History Confirmed 02/10/23] (units unknown) (unknown) (unknown) (no date) (unknown) (unknown) lower extremit ies. motor 5/5 all LE muscle groups. Coordination appears normal. (units unknown) (unknown) (unknown) (no date) (unknown) (unknown) magnesium 200 mg tablet 200 mg PO DAILY 05/22/22 [History Confirmed 02/10/23] (units unknown) (unknown) (unknown) (no date) (unknown) (unknown) marrow endplat e changes are seen, which demonstrate mixed T1 weighted and T2 (units unknown) (unknown) (unknown) (no date) (unknown) (unknown) may occur. Occ asional wrong-word or 'sound-alike' substitutions may have (units unknown) (unknown) (unknown) (no date) (unknown) (unknown) mecobalamin (v itamin B12) 5,000 mcg disintegrating tablet 5,000 mcg PO DAILY (units unknown) (unknown) (unknown) (no date) (unknown) (unknown) metaplasia (units unknown) (unknown) (unknown) (no date) (unknown) (unknown) metoprolol suc cinate 50 mg tablet,extended release 24 hr tab PO 05/22/22 (units unknown) (unknown) (unknown) (no date) (unknown) (unknown) moderate to (units unknown) (unknown) (unknown) (no date) (unknown) (unknown) narrowing is s een. Stable from the prior study. (units unknown) (unknown) (unknown) (no date) (unknown) (unknown) neurological d eficit with progressive or disabling symptoms. (units unknown) (unknown) (unknown) (no date) (unknown) (unknown) obtained today , As oral consent, we did review the risks of the above stated (units unknown) (unknown) (unknown) (no date) (unknown) (unknown) occurred due t o the inherent limitations of voice recognition software. Please (units unknown) (unknown) (unknown) (no date) (unknown) (unknown) of moderate to sever pain with functional impairment; 2) they did not respond to (units unknown) (unknown) (unknown) (no date) (unknown) (unknown) omeprazole 20 mg capsule,delayed release 20 mg PO DAILY 05/22/22 [History (units unknown) (unknown) (unknown) (no date) (unknown) (unknown) on L3. No abno rmal motion on flexion and extension. (units unknown) (unknown) (unknown) (no date) (unknown) (unknown) or immunosuppr essive therapy, previous or current cancer diagnosis, history of (units unknown) (unknown) (unknown) (no date) (unknown) (unknown) oriented. (units unknown) (unknown) (unknown) (no date) (unknown) (unknown) osteophytes an d facet arthropathy. Trace anterolisthesis of L3 on L4. Mild (units unknown) (unknown) (unknown) (no date) (unknown) (unknown) performed on 06/11/2022. With return of symptoms of believe proceeding with (units unknown) (unknown) (unknown) (no date) (unknown) (unknown) planes. On pal pation, there is tenderness over the spinous processes. With (units unknown) (unknown) (unknown) (no date) (unknown) (unknown) possible surgi juan jose decompression referred to us for further conservative cares.? (units unknown) (unknown) (unknown) (no date) (unknown) (unknown) posterior (units unknown) (unknown) (unknown) (no date) (unknown) (unknown) potassium chlo ride 10 mEq capsule,extended release 10 meq PO DAILY 05/22/22 (units unknown) (unknown) (unknown) (no date) (unknown) (unknown) procedure incl uding not limited to bleeding, infection, allergic reaction, nerve (units unknown) (unknown) (unknown) (no date) (unknown) (unknown) protrusion. Mo derate facet joint hypertrophy is seen. There is moderate to (units unknown) (unknown) (unknown) (no date) (unknown) (unknown) provided copy the [facility] back exercises further offset his current (units unknown) (unknown) (unknown) (no date) (unknown) (unknown) provided subst antial pain relief, radiofrequency ablation may be indicated. If (units unknown) (unknown) (unknown) (no date) (unknown) (unknown) provocative ma neuvers including sacra shear test as well as pelvic obliquity are (units unknown) (unknown) (unknown) (no date) (unknown) (unknown) pyridoxine (vi tamin B6) 100 mg tablet 50 mg PO DAILY 05/22/22 [History Confirmed (units unknown) (unknown) (unknown) (no date) (unknown) (unknown) range of motio n, strength and stability with no swelling, atrophy or effusion. (units unknown) (unknown) (unknown) (no date) (unknown) (unknown) read the note carefully and recognize, using context, where these substitutions (units unknown) (unknown) (unknown) (no date) (unknown) (unknown) region (units unknown) (unknown) (unknown) (no date) (unknown) (unknown) region: lumbar Qualified Code(s): M41.26 - Other idiopathic scoliosis, lumbar (units unknown) (unknown) (unknown) (no date) (unknown) (unknown) relief applied . Will complete written consent on the day of the procedure. (units unknown) (unknown) (unknown) (no date) (unknown) (unknown) seen upon the exiting nerve roots. Moderate central canal narrowing is seen. No (units unknown) (unknown) (unknown) (no date) (unknown) (unknown) severe bilater al neural foraminal narrowing seen, with an associated a degree of (units unknown) (unknown) (unknown) (no date) (unknown) (unknown) severe (units unknown) (unknown) (unknown) (no date) (unknown) (unknown) significant ch smith from the prior. (units unknown) (unknown) (unknown) (no date) (unknown) (unknown) similar. (units unknown) (unknown) (unknown) (no date) (unknown) (unknown) software. Alth ough every effort is made to edit content, container maker errors (units unknown) (unknown) (unknown) (no date) (unknown) (unknown) sotalol 80 mg tablet 80 mg PO DAILY 05/22/22 [History Confirmed 02/10/23] (units unknown) (unknown) (unknown) (no date) (unknown) (unknown) source of pain . Thus meeting the above criteria, radiofrequency ablation may be (units unknown) (unknown) (unknown) (no date) (unknown) (unknown) spine from the L2-3 segment through the L5-S1 segment.? He does have a (units unknown) (unknown) (unknown) (no date) (unknown) (unknown) substantial pa in relief, particularly if accompanied by improvement in ROM and (units unknown) (unknown) (unknown) (no date) (unknown) (unknown) symptomatology . He will be wintering in [place] and upon return in January would (units unknown) (unknown) (unknown) (no date) (unknown) (unknown) symptoms or ot her neurologic components; and 4) the imaging does not suggest (units unknown) (unknown) (unknown) (no date) (unknown) (unknown) tamsulosin 0.4 mg capsule cap PO 05/22/22 [History Confirmed 02/10/23] (units unknown) (unknown) (unknown) (no date) (unknown) (unknown) the above-stated aaron n. (units unknown) (unknown) (unknown) (no date) (unknown) (unknown) to palpation o n paraspinals.straight leg raising negative bilaterally. Sacral (units unknown) (unknown) (unknown) (no date) (unknown) (unknown) two diagnostic medial branch blocks on two different occasions lead to (units unknown) (unknown) (unknown) (no date) (unknown) (unknown) views. (units unknown) (unknown) (unknown) (no date) (unknown) (unknown) weighted signa l, and are attributed to a combination of edema and fatty (units unknown) (unknown) (unknown) (no date) (unknown) (unknown) which is (units unknown) (unknown) (unknown) (no date) (unknown) (unknown) will perform diagnostic medial branch blocks of the facet joints bilateral L4-L5 (units unknown) (unknown) (unknown) (no date) (unknown) (unknown) with Dr. Fly lunsford and Rubina Herrera over at [facility] for (units unknown) (unknown) (unknown) (no date) (unknown) (unknown) with associate d stenosis and severe degenerative changes involving the lumbar (units unknown) (unknown) (unknown) (no date) (unknown) (unknown) with facet arthropathy, scoliosis (units unknown) (unknown) (unknown) (no date) (unknown) (unknown) within normal limits . (units unknown) (unknown) Result panel 4 (unknown) (no date) (unknown) (unknown) (no value) (units unknown) (unknown) (unknown) (no date) (unknown) (unknown) (1) Chronic anticoagulation: (units unknown) (unknown) (unknown) (no date) (unknown) (unknown) (2) History of chronic atrial fibrillation: (units unknown) (unknown) (unknown) (no date) (unknown) (unknown) (3) Scoliosis: (unit s unknown) (unknown) (unknown) (no date) (unknown) (unknown) (4) Facet arth ropathy, lumbar: (units unknown) (unknown) (unknown) (no date) (unknown) (unknown) (5) Lumbar ashkan nosis with neurogenic claudication: (units unknown) (unknown) (unknown) (no date) (unknown) (unknown) (6) History of cardiac radiofrequency ablation: (units unknown) (unknown) (unknown) (no date) (unknown) (unknown) (Modic type I and Modic type II changes). At least moderate disc bulge is seen, (units unknown) (unknown) (unknown) (no date) (unknown) (unknown) [id number] (units unknown) (unknown) (unknown) (no date) (unknown) (unknown) 02/10/23 1544 (units unknown) (unknown) (unknown) (no date) (unknown) (unknown) 02/10/23 (units unknown) (unknown) (unknown) (no date) (unknown) (unknown) 02/10/23] (units unknown) (unknown) (unknown) (no date) (unknown) (unknown) 05/22/22 [Hist ory Confirmed 02/10/23] (units unknown) (unknown) (unknown) (no date) (unknown) (unknown) 09/19/2020, 8:00. (u nits unknown) (unknown) (unknown) (no date) (unknown) (unknown) 09/23/22 [Hist ory Confirmed 02/10/23] (units unknown) (unknown) (unknown) (no date) (unknown) (unknown) 15:27 (units unknown) (unknown) (unknown) (no date) (unknown) (unknown) 5:03. Outside Film, CR, XR LUMBAR SPINE WITH OBLIQUES PLUS FLEXION EXTENSION, (units unknown) (unknown) (unknown) (no date) (unknown) (unknown) Accompanied by : Self / Same As Patient (units unknown) (unknown) (unknown) (no date) (unknown) (unknown) Age/Sex: 77 / M Date of Service: (units unknown) (unknown) (unknown) (no date) (unknown) (unknown) All of his que stions were answered to the best my ability is in agreement with (units unknown) (unknown) (unknown) (no date) (unknown) (unknown) All other syst ems reviewed and are negative except as noted in HPI. (units unknown) (unknown) (unknown) (no date) (unknown) (unknown) Allergies (units unknown) (unknown) (unknown) (no date) (unknown) (unknown) [place] Steel [id number] (units unknown) (unknown) (unknown) (no date) (unknown) (unknown) Approved by: Piedad Guerra M.D. on 01/23/2022 at 11:39 (units unknown) (unknown) (unknown) (no date) (unknown) (unknown) Approved by: Jimena Oden M.D. on 03/20/2022 at 10:01 (units unknown) (unknown) (unknown) (no date) (unknown) (unknown) Assessment + Plan (u nits unknown) (unknown) (unknown) (no date) (unknown) (unknown) Attending Dr: Estuardo Loving D.O. (units unknown) (unknown) (unknown) (no date) (unknown) (unknown) BMI 27.6 (units unknown) (unknown) (unknown) (no date) (unknown) (unknown) BP 130/78 (units unknown) (unknown) (unknown) (no date) (unknown) (unknown) Blood Pressure Location Rt brachial (units unknown) (unknown) (unknown) (no date) (unknown) (unknown) Bones: Extensi ve degenerative change. Multilevel joint space obliteration and (units unknown) (unknown) (unknown) (no date) (unknown) (unknown) Brother Cancer (unit s unknown) (unknown) (unknown) (no date) (unknown) (unknown) COMPARISON: [facility] Film, MR, MR LUMBAR SPINE WITHOUT CONTRAST, 09/14/2020, (units unknown) (unknown) (unknown) (no date) (unknown) (unknown) Yann and I did review his very positive response with her bilateral L4-5 L5 (units unknown) (unknown) (unknown) (no date) (unknown) (unknown) Yann return s to clinic today status post bilateral L4-5 L5-S1 facet joint (units unknown) (unknown) (unknown) (no date) (unknown) (unknown) Chief Complaint (uni ts unknown) (unknown) (unknown) (no date) (unknown) (unknown) Chief Complain t: f/u Axial LBP (units unknown) (unknown) (unknown) (no date) (unknown) (unknown) Chronic anticoagulation (units unknown) (unknown) (unknown) (no date) (unknown) (unknown) Compared to e outside 2020 images, these imaging findings are believed to be (units unknown) (unknown) (unknown) (no date) (unknown) (unknown) Confirmed 02/10/23] (units unknown) (unknown) (unknown) (no date) (unknown) (unknown) : 4 Acct:[id number] (units unknown) (unknown) (unknown) (no date) (unknown) (unknown) DTR's symmetric. (un its unknown) (unknown) (unknown) (no date) (unknown) (unknown) Dementia (units unknown) (unknown) (unknown) (no date) (unknown) (unknown) Denies recent trauma, fever or weight loss of unknown origin, immunocompromise (units unknown) (unknown) (unknown) (no date) (unknown) (unknown) Dense atherosc lerotic calcifications. (units unknown) (unknown) (unknown) (no date) (unknown) (unknown) Dept at . (units unknown) (unknown) (unknown) (no date) (unknown) (unknown) Details: (units unknown) (unknown) (unknown) (no date) (unknown) (unknown) Documented By: Estuardo Loving D.O. 02/10/23 1518 (units unknown) (unknown) (unknown) (no date) (unknown) (unknown) EKTA due to his use of Eliquis elected to proceed with facet mediated (units unknown) (unknown) (unknown) (no date) (unknown) (unknown) Endorses chron ic atrial fibrillation, chronic anticoagulation, lumbar stenosis (units unknown) (unknown) (unknown) (no date) (unknown) (unknown) Exam Narrative (unit s unknown) (unknown) (unknown) (no date) (unknown) (unknown) Exam Narrative: (uni ts unknown) (unknown) (unknown) (no date) (unknown) (unknown) Exam (units unknown) (unknown) (unknown) (no date) (unknown) (unknown) FINDINGS: (units unknown) (unknown) (unknown) (no date) (unknown) (unknown) Facet arthropa thy, lumbar (units unknown) (unknown) (unknown) (no date) (unknown) (unknown) Family History (units unknown) (unknown) (unknown) (no date) (unknown) (unknown) Father Lung disease (units unknown) (unknown) (unknown) (no date) (unknown) (unknown) Flexion/extens ion: There is normal range of motion, with preserved normal (units unknown) (unknown) (unknown) (no date) (unknown) (unknown) Gait: Full weightbearing. No assistive device. Stooped Gait Posture due to (units unknown) (unknown) (unknown) (no date) (unknown) (unknown) General: The p atient is in no obvious distress. Normal affect. Fully (units unknown) (unknown) (unknown) (no date) (unknown) (unknown) Grandmother De ceased Cancer (units unknown) (unknown) (unknown) (no date) (unknown) (unknown) H/O Mohs micro graphic surgery for skin cancer (units unknown) (unknown) (unknown) (no date) (unknown) (unknown) HPI (units unknown) (unknown) (unknown) (no date) (unknown) (unknown) He has done ve ry well status post bilateral L4-5 L5-S1 facet joint injections (units unknown) (unknown) (unknown) (no date) (unknown) (unknown) He reports no difficulty with pain throughout the rest the day he is quite (units unknown) (unknown) (unknown) (no date) (unknown) (unknown) He reports oth erwise feeling well maintain the Covid19 social restrictions (units unknown) (unknown) (unknown) (no date) (unknown) (unknown) Height 5 ft 8.5 in ( units unknown) (unknown) (unknown) (no date) (unknown) (unknown) History of car diac radiofrequency ablation (units unknown) (unknown) (unknown) (no date) (unknown) (unknown) History of chr onic atrial fibrillation (units unknown) (unknown) (unknown) (no date) (unknown) (unknown) History of hip surge ry (units unknown) (unknown) (unknown) (no date) (unknown) (unknown) Hx of cholecystectom y (units unknown) (unknown) (unknown) (no date) (unknown) (unknown) IMPRESSION: Ad vanced degenerative change. No abnormal motion on flexion and (units unknown) (unknown) (unknown) (no date) (unknown) (unknown) IMPRESSION: Mu ltiple levels of relatively prominent lumbar spine degenerative (units unknown) (unknown) (unknown) (no date) (unknown) (unknown) INDICATIONS: pain (u nits unknown) (unknown) (unknown) (no date) (unknown) (unknown) Informed conse nt was obtained today without guarantees or assurances of complete (units unknown) (unknown) (unknown) (no date) (unknown) (unknown) Intake Clinical Staf f (units unknown) (unknown) (unknown) (no date) (unknown) (unknown) Intake Note: (units unknown) (unknown) (unknown) (no date) (unknown) (unknown) Intake perform ed by: Juanis Brink (units unknown) (unknown) (unknown) (no date) (unknown) (unknown) Intake (units unknown) (unknown) (unknown) (no date) (unknown) (unknown) Is patient in pain?: Yes (HERE FOR LUMBAR AND LBP) Pain scale (1-10): 4 (units unknown) (unknown) (unknown) (no date) (unknown) (unknown) L4-L5: Moderat e to severe loss of disc height and disc signal can be seen. (units unknown) (unknown) (unknown) (no date) (unknown) (unknown) L5-S1: There i s at least moderate loss of disc height and disc signal . Moderate (units unknown) (unknown) (unknown) (no date) (unknown) (unknown) LUMBAR SPINE (units unknown) (unknown) (unknown) (no date) (unknown) (unknown) Left Lower Ext remity: No edema, joint effusion or atrophy. tenderness over the (units unknown) (unknown) (unknown) (no date) (unknown) (unknown) Left Upper Ext remity: Left upper extremity exam shows grossly normal alignment, (units unknown) (unknown) (unknown) (no date) (unknown) (unknown) Loc: PAIN (units unknown) (unknown) (unknown) (no date) (unknown) (unknown) Lumbar stenosi s with neurogenic claudication (units unknown) (unknown) (unknown) (no date) (unknown) (unknown) MSK: System re viewed and no additional complaints, except as documented. (units unknown) (unknown) (unknown) (no date) (unknown) (unknown) Medical Histor y (units unknown) (unknown) (unknown) (no date) (unknown) (unknown) Medications (units unknown) (unknown) (unknown) (no date) (unknown) (unknown) Mother Hypertension (units unknown) (unknown) (unknown) (no date) (unknown) (unknown) Neuro: System reviewed and no additional complaints, except as documented. (units unknown) (unknown) (unknown) (no date) (unknown) (unknown) Neurologic: Se nsation is grossly intact to light touch throughout the upper and (units unknown) (unknown) (unknown) (no date) (unknown) (unknown) Objective Data (unit s unknown) (unknown) (unknown) (no date) (unknown) (unknown) Objective Data: (uni ts unknown) (unknown) (unknown) (no date) (unknown) (unknown) Orders (units unknown) (unknown) (unknown) (no date) (unknown) (unknown) Orders: (units unknown) (unknown) (unknown) (no date) (unknown) (unknown) Oxygen Deliver y Method room air (units unknown) (unknown) (unknown) (no date) (unknown) (unknown) PAIN l/s facet inj/blk 1st asha Today M41.9 - Scoliosis, unspecified, M47.816 (units unknown) (unknown) (unknown) (no date) (unknown) (unknown) PFSH (units unknown) (unknown) (unknown) (no date) (unknown) (unknown) PROCEDURE: XR LUMBAR SPINE WITH FLEXION EXTENSION 5 VIEWS (units unknown) (unknown) (unknown) (no date) (unknown) (unknown) Pain Scale (units unknown) (unknown) (unknown) (no date) (unknown) (unknown) Pain Visit (units unknown) (unknown) (unknown) (no date) (unknown) (unknown) Patient: Ynan Godoy MR#: M (units unknown) (unknown) (unknown) (no date) (unknown) (unknown) Plan (units unknown) (unknown) (unknown) (no date) (unknown) (unknown) Position Sitting (un its unknown) (unknown) (unknown) (no date) (unknown) (unknown) Previously he reports chronic progressive low back pain with bilateral lower (units unknown) (unknown) (unknown) (no date) (unknown) (unknown) Pulse 78 (units unknown) (unknown) (unknown) (no date) (unknown) (unknown) Pulse Oximetry (%) 1 00 (units unknown) (unknown) (unknown) (no date) (unknown) (unknown) Pulse Source Monitor (units unknown) (unknown) (unknown) (no date) (unknown) (unknown) Qualifiers: (units unknown) (unknown) (unknown) (no date) (unknown) (unknown) ROS Narrative (units unknown) (unknown) (unknown) (no date) (unknown) (unknown) ROS Narrative: (unit s unknown) (unknown) (unknown) (no date) (unknown) (unknown) ROS (units unknown) (unknown) (unknown) (no date) (unknown) (unknown) Reactive (units unknown) (unknown) (unknown) (no date) (unknown) (unknown) Reason For Visit (un its unknown) (unknown) (unknown) (no date) (unknown) (unknown) Reviewed by: Piedad Guerra M.D. on 01/23/2022 at 11:28 (units unknown) (unknown) (unknown) (no date) (unknown) (unknown) Reviewed by: Jimena Oden M.D. on 03/20/2022 at 9:53 (units unknown) (unknown) (unknown) (no date) (unknown) (unknown) Right Lower Ex tremity: No edema, effusion or atrophy. tenderness over the (units unknown) (unknown) (unknown) (no date) (unknown) (unknown) Right Upper Ex tremity: Right upper extremity exam shows grossly normal (units unknown) (unknown) (unknown) (no date) (unknown) (unknown) S1 facet joint injection performed on 06/11/2022. He has complete resolution of (units unknown) (unknown) (unknown) (no date) (unknown) (unknown) Scoliosis type : idiopathic Idiopathic scoliosis type: other Spinal (units unknown) (unknown) (unknown) (no date) (unknown) (unknown) Scoliosis (units unknown) (unknown) (unknown) (no date) (unknown) (unknown) Signed By: <Electronically signed by Estuardo Loving D.O.> (units unknown) (unknown) (unknown) (no date) (unknown) (unknown) Signed (units unknown) (unknown) (unknown) (no date) (unknown) (unknown) Sister Stroke (units unknown) (unknown) (unknown) (no date) (unknown) (unknown) Skin: No signi ficant skin lesions are noted. (units unknown) (unknown) (unknown) (no date) (unknown) (unknown) Smoking Status : Former smoker (units unknown) (unknown) (unknown) (no date) (unknown) (unknown) Soft tissues: Overlying bowel gas pattern is normal. No suspicious soft tissue (units unknown) (unknown) (unknown) (no date) (unknown) (unknown) Spine: Cervica l spine ROM functional. Lumbar spine ROM was reduced in all (units unknown) (unknown) (unknown) (no date) (unknown) (unknown) Spondylosis wi thout myelopathy or radiculopathy, lumbar region (units unknown) (unknown) (unknown) (no date) (unknown) (unknown) Status: Acute (units unknown) (unknown) (unknown) (no date) (unknown) (unknown) Stroke (units unknown) (unknown) (unknown) (no date) (unknown) (unknown) Surgical Histo ry (units unknown) (unknown) (unknown) (no date) (unknown) (unknown) TECHNIQUE: 5 v iews of the lumbar spine acquired, including flexion and extension (units unknown) (unknown) (unknown) (no date) (unknown) (unknown) Temp 97.7 F (units unknown) (unknown) (unknown) (no date) (unknown) (unknown) Temp Source Te mporal Artery Scan (units unknown) (unknown) (unknown) (no date) (unknown) (unknown) [facility] (units unknown) (unknown) (unknown) (no date) (unknown) (unknown) This note may have been all or partially generated using voice recognition (units unknown) (unknown) (unknown) (no date) (unknown) (unknown) Tobacco + Subs tance Use (units unknown) (unknown) (unknown) (no date) (unknown) (unknown) Tobacco Status (unit s unknown) (unknown) (unknown) (no date) (unknown) (unknown) Visit Reasons: 4M FOLLOW UP, LUMBAR SPINE (units unknown) (unknown) (unknown) (no date) (unknown) (unknown) Vitals (units unknown) (unknown) (unknown) (no date) (unknown) (unknown) [place] for elk, deer and upl[place] birds in June and July. (units unknown) (unknown) (unknown) (no date) (unknown) (unknown) We did review the above-stated procedure at length and verbal consent was (units unknown) (unknown) (unknown) (no date) (unknown) (unknown) We discussed h is mainly axial low back pain with some lower extremity neurogenic (units unknown) (unknown) (unknown) (no date) (unknown) (unknown) Weight 184 lb (units unknown) (unknown) (unknown) (no date) (unknown) (unknown) [History Confi rmed 02/10/23] (units unknown) (unknown) (unknown) (no date) (unknown) (unknown) alignment, ran ge of motion, strength and stability with no swelling, atrophy or (units unknown) (unknown) (unknown) (no date) (unknown) (unknown) alignment. (units unknown) (unknown) (unknown) (no date) (unknown) (unknown) amiodarone All ergy (Intermediate, Verified 02/10/23 15:19) (units unknown) (unknown) (unknown) (no date) (unknown) (unknown) amlodipine 5 m g tablet 5 mg PO DAILY 05/22/22 [History Confirmed 02/10/23] (units unknown) (unknown) (unknown) (no date) (unknown) (unknown) and S1. For tr ial, performing the medial branch blocks is justified by the (units unknown) (unknown) (unknown) (no date) (unknown) (unknown) another predom inant source of pain. If the second diagnostic medial branch block (units unknown) (unknown) (unknown) (no date) (unknown) (unknown) anterolisthesis of L 2 (units unknown) (unknown) (unknown) (no date) (unknown) (unknown) apixaban 5 mg tablet (Eliquis) 5 mg PO DAILY 05/22/22 [History Confirmed (units unknown) (unknown) (unknown) (no date) (unknown) (unknown) aspirin 81 mg tablet,delayed release (Adult Low Dose Aspirin) 81 mg PO DAILY (units unknown) (unknown) (unknown) (no date) (unknown) (unknown) at length his underlying pathology given his multilevel lumbosacral spondylosis (units unknown) (unknown) (unknown) (no date) (unknown) (unknown) atorvastatin 4 0 mg tablet 40 mg PO BEDTIME 05/22/22 [History Confirmed 02/10/23] (units unknown) (unknown) (unknown) (no date) (unknown) (unknown) aware that he was on the naproxen sodium combined with the Eliquis.? He reports (units unknown) (unknown) (unknown) (no date) (unknown) (unknown) axial LBP (units unknown) (unknown) (unknown) (no date) (unknown) (unknown) ay occur. Occa sional wrong-word or 'sound-alike' substitutions may have (units unknown) (unknown) (unknown) (no date) (unknown) (unknown) bilateral L4-L 5 and S1 medial branch blocks to see if ultimately his candidate (units unknown) (unknown) (unknown) (no date) (unknown) (unknown) bilateral neur al foraminal narrowing seen, with an associated a degree of (units unknown) (unknown) (unknown) (no date) (unknown) (unknown) bulge is seen, which is eccentric to the left. There is a superimposed central (units unknown) (unknown) (unknown) (no date) (unknown) (unknown) but he also de veloped GI upset.? 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 (uni ts unknown) (unknown) (unknown) (no date) (unknown) (unknown) change can be seen, which are worst inferiorly. (units unknown) (unknown) (unknown) (no date) (unknown) (unknown) characteristic s involves primarily axial pain in the absence of clear radicular (units unknown) (unknown) (unknown) (no date) (unknown) (unknown) chlorthalidone 25 mg tablet 12.5 mg PO DAILY 09/23/22 [History Confirmed (units unknown) (unknown) (unknown) (no date) (unknown) (unknown) cholecalcifero l (vitamin D3) 25 mcg (1,000 unit) capsule 25 mcg PO DAILY (units unknown) (unknown) (unknown) (no date) (unknown) (unknown) claudication symptoms.? We discussed facet mediated interventions versus lumbar (units unknown) (unknown) (unknown) (no date) (unknown) (unknown) compression se en upon the exiting nerve roots. Mild to moderate central canal (units unknown) (unknown) (unknown) (no date) (unknown) (unknown) compression (units unknown) (unknown) (unknown) (no date) (unknown) (unknown) conservative t reatment efforts for longer than 3 months; 3) the clinical (units unknown) (unknown) (unknown) (no date) (unknown) (unknown) degenerative s coliosis as well with convexity to the right.? He was evaluated (units unknown) (unknown) (unknown) (no date) (unknown) (unknown) diagnosed with multilevel lumbar degenerative changes and subsequently has been (units unknown) (unknown) (unknown) (no date) (unknown) (unknown) disc (units unknown) (unknown) (unknown) (no date) (unknown) (unknown) eccentric to t he right. Moderate facet joint hypertrophy is seen. There is (units unknown) (unknown) (unknown) (no date) (unknown) (unknown) effusion. (units unknown) (unknown) (unknown) (no date) (unknown) (unknown) evaluations [facility] locally as well as at the [place] in [place].? He reports he was (units unknown) (unknown) (unknown) (no date) (unknown) (unknown) extension. (units unknown) (unknown) (unknown) (no date) (unknown) (unknown) extremity neur ogenic claudication.? He reports longstanding low back pain since (units unknown) (unknown) (unknown) (no date) (unknown) (unknown) folic acid 1 m g tablet 1 mg PO DAILY 09/23/22 [History Confirmed 02/10/23] (units unknown) (unknown) (unknown) (no date) (unknown) (unknown) following considerations. 1) the patient has had a history of at least 3 months (units unknown) (unknown) (unknown) (no date) (unknown) (unknown) for medial bra nch rhizotomy would be prudent. Following insurance approval. I (units unknown) (unknown) (unknown) (no date) (unknown) (unknown) function, we w ould conclude that the tested joints are likely the relevant (units unknown) (unknown) (unknown) (no date) (unknown) (unknown) greater trocha nteric region (units unknown) (unknown) (unknown) (no date) (unknown) (unknown) greater trocha nteric region. (units unknown) (unknown) (unknown) (no date) (unknown) (unknown) have occurred. If there are any questions, please contact the Medical Records (units unknown) (unknown) (unknown) (no date) (unknown) (unknown) he has stopped his Eliquis in the past for dental procedures as well as cardiac (units unknown) (unknown) (unknown) (no date) (unknown) (unknown) he retired fro [employer] without specific injury illness.? He does report (units unknown) (unknown) (unknown) (no date) (unknown) (unknown) his axial low back pain save some morning stiffness. We did review knee was (units unknown) (unknown) (unknown) (no date) (unknown) (unknown) increased tend erness with axial loading and extension based maneuvers tenderness (units unknown) (unknown) (unknown) (no date) (unknown) (unknown) indicated. (units unknown) (unknown) (unknown) (no date) (unknown) (unknown) injection perf ormed on 06/11/2022.? He reports no difficulty with the procedure (units unknown) (unknown) (unknown) (no date) (unknown) (unknown) injury, stroke , paralysis and and the patient elected to proceed. (units unknown) (unknown) (unknown) (no date) (unknown) (unknown) interventions 1st.? (units unknown) (unknown) (unknown) (no date) (unknown) (unknown) intravenous dr ug use, sustained glucocorticoid use, osteoporosis, or a focal (units unknown) (unknown) (unknown) (no date) (unknown) (unknown) itself does re port prominent relief from his axial low back pain.? Does report (units unknown) (unknown) (unknown) (no date) (unknown) (unknown) like to follow up and consider further interventions as necessary. We discussed (units unknown) (unknown) (unknown) (no date) (unknown) (unknown) lisinopril 40 mg tablet 40 mg PO DAILY 05/22/22 [History Confirmed 02/10/23] (units unknown) (unknown) (unknown) (no date) (unknown) (unknown) lower extremit ies. motor 5/5 all LE muscle groups. Coordination appears normal. (units unknown) (unknown) (unknown) (no date) (unknown) (unknown) magnesium 200 mg tablet 200 mg PO DAILY 05/22/22 [History Confirmed 02/10/23] (units unknown) (unknown) (unknown) (no date) (unknown) (unknown) marrow endplat e changes are seen, which demonstrate mixed T1 weighted and T2 (units unknown) (unknown) (unknown) (no date) (unknown) (unknown) mecobalamin (v itamin B12) 5,000 mcg disintegrating tablet 5,000 mcg PO DAILY (units unknown) (unknown) (unknown) (no date) (unknown) (unknown) metaplasia (units unknown) (unknown) (unknown) (no date) (unknown) (unknown) metoprolol suc cinate 50 mg tablet,extended release 24 hr tab PO 05/22/22 (units unknown) (unknown) (unknown) (no date) (unknown) (unknown) moderate to (units unknown) (unknown) (unknown) (no date) (unknown) (unknown) narrowing is s een. Stable from the prior study. (units unknown) (unknown) (unknown) (no date) (unknown) (unknown) neurological d eficit with progressive or disabling symptoms. (units unknown) (unknown) (unknown) (no date) (unknown) (unknown) obtained today , As oral consent, we did review the risks of the above stated (units unknown) (unknown) (unknown) (no date) (unknown) (unknown) occurred due t o the inherent limitations of voice recognition software. Please (units unknown) (unknown) (unknown) (no date) (unknown) (unknown) of moderate to sever pain with functional impairment; 2) they did not respond to (units unknown) (unknown) (unknown) (no date) (unknown) (unknown) omeprazole 20 mg capsule,delayed release 20 mg PO DAILY 05/22/22 [History (units unknown) (unknown) (unknown) (no date) (unknown) (unknown) on L3. No abno rmal motion on flexion and extension. (units unknown) (unknown) (unknown) (no date) (unknown) (unknown) or immunosuppr essive therapy, previous or current cancer diagnosis, history of (units unknown) (unknown) (unknown) (no date) (unknown) (unknown) oriented. (units unknown) (unknown) (unknown) (no date) (unknown) (unknown) osteophytes an d facet arthropathy. Trace anterolisthesis of L3 on L4. Mild (units unknown) (unknown) (unknown) (no date) (unknown) (unknown) performed on 06/11/2022. With return of symptoms of believe proceeding with (units unknown) (unknown) (unknown) (no date) (unknown) (unknown) planes. On pal pation, there is tenderness over the spinous processes. With (units unknown) (unknown) (unknown) (no date) (unknown) (unknown) pleased.? He r eports he will be wintering outside [facility]. (units unknown) (unknown) (unknown) (no date) (unknown) (unknown) possible surgi juan jose decompression referred to us for further conservative cares.? (units unknown) (unknown) (unknown) (no date) (unknown) (unknown) posterior (units unknown) (unknown) (unknown) (no date) (unknown) (unknown) potassium chlo ride 10 mEq capsule,extended release 10 meq PO DAILY 05/22/22 (units unknown) (unknown) (unknown) (no date) (unknown) (unknown) procedure incl uding not limited to bleeding, infection, allergic reaction, nerve (units unknown) (unknown) (unknown) (no date) (unknown) (unknown) procedures. (units unknown) (unknown) (unknown) (no date) (unknown) (unknown) protrusion. Mo derate facet joint hypertrophy is seen. There is moderate to (units unknown) (unknown) (unknown) (no date) (unknown) (unknown) provided copy the [facility] back exercises further offset his current (units unknown) (unknown) (unknown) (no date) (unknown) (unknown) provided subst antial pain relief, radiofrequency ablation may be indicated. If (units unknown) (unknown) (unknown) (no date) (unknown) (unknown) provocative ma neuvers including sacra shear test as well as pelvic obliquity are (units unknown) (unknown) (unknown) (no date) (unknown) (unknown) pyridoxine (vi tamin B6) 100 mg tablet 50 mg PO DAILY 05/22/22 [History Confirmed (units unknown) (unknown) (unknown) (no date) (unknown) (unknown) range of motio n, strength and stability with no swelling, atrophy or effusion. (units unknown) (unknown) (unknown) (no date) (unknown) (unknown) read the note carefully and recognize, using context, where these substitutions (units unknown) (unknown) (unknown) (no date) (unknown) (unknown) region (units unknown) (unknown) (unknown) (no date) (unknown) (unknown) region: lumbar Qualified Code(s): M41.26 - Other idiopathic scoliosis, lumbar (units unknown) (unknown) (unknown) (no date) (unknown) (unknown) relief applied . Will complete written consent on the day of the procedure. (units unknown) (unknown) (unknown) (no date) (unknown) (unknown) seen upon the exiting nerve roots. Moderate central canal narrowing is seen. No (units unknown) (unknown) (unknown) (no date) (unknown) (unknown) severe bilater al neural foraminal narrowing seen, with an associated a degree of (units unknown) (unknown) (unknown) (no date) (unknown) (unknown) severe (units unknown) (unknown) (unknown) (no date) (unknown) (unknown) significant ch smith from the prior. (units unknown) (unknown) (unknown) (no date) (unknown) (unknown) similar. (units unknown) (unknown) (unknown) (no date) (unknown) (unknown) software. Alth ough every effort is made to edit content, container maker errors m (units unknown) (unknown) (unknown) (no date) (unknown) (unknown) some morning s tiffness which lasts approximately 30 minutes but then resolves.? (units unknown) (unknown) (unknown) (no date) (unknown) (unknown) sotalol 80 mg tablet 80 mg PO DAILY 05/22/22 [History Confirmed 02/10/23] (units unknown) (unknown) (unknown) (no date) (unknown) (unknown) source of pain . Thus meeting the above criteria, radiofrequency ablation may be (units unknown) (unknown) (unknown) (no date) (unknown) (unknown) spine from the L2-3 segment through the L5-S1 segment.? He does have a (units unknown) (unknown) (unknown) (no date) (unknown) (unknown) substantial pa in relief, particularly if accompanied by improvement in ROM and (units unknown) (unknown) (unknown) (no date) (unknown) (unknown) symptomatology . He will be wintering in [place] and upon return in January would (units unknown) (unknown) (unknown) (no date) (unknown) (unknown) symptoms or ot her neurologic components; and 4) the imaging does not suggest (units unknown) (unknown) (unknown) (no date) (unknown) (unknown) tamsulosin 0.4 mg capsule cap PO 05/22/22 [History Confirmed 02/10/23] (units unknown) (unknown) (unknown) (no date) (unknown) (unknown) tering in [facility] at the end of July and he will be hunting in [place] (units unknown) (unknown) (unknown) (no date) (unknown) (unknown) the above-stated aaron n. (units unknown) (unknown) (unknown) (no date) (unknown) (unknown) to palpation o n paraspinals.straight leg raising negative bilaterally. Sacral (units unknown) (unknown) (unknown) (no date) (unknown) (unknown) two diagnostic medial branch blocks on two different occasions lead to (units unknown) (unknown) (unknown) (no date) (unknown) (unknown) use of naproxe n sodium despite the fact he is on Eliquis was more effective form (units unknown) (unknown) (unknown) (no date) (unknown) (unknown) using over-the -counter acetaminophen with some relief.? He does report previous (units unknown) (unknown) (unknown) (no date) (unknown) (unknown) views. (units unknown) (unknown) (unknown) (no date) (unknown) (unknown) weighted signa l, and are attributed to a combination of edema and fatty (units unknown) (unknown) (unknown) (no date) (unknown) (unknown) which is (units unknown) (unknown) (unknown) (no date) (unknown) (unknown) will perform diagnostic medial branch blocks of the facet joints bilateral L4-L5 (units unknown) (unknown) (unknown) (no date) (unknown) (unknown) with Dr. Fly lunsford and Rubina Herrera over at [facility] for (units unknown) (unknown) (unknown) (no date) (unknown) (unknown) with associate d stenosis and severe degenerative changes involving the lumbar (units unknown) (unknown) (unknown) (no date) (unknown) (unknown) with facet arthropathy, scoliosis (units unknown) (unknown) (unknown) (no date) (unknown) (unknown) within normal limits . (units unknown) (unknown) (unknown) (no date) (unknown) (unknown) without cough fever fatigue at this time.? He does report that he will be win (units unknown) (unknown) Result panel 5 (unknown) (no date) (unknown) (unknown) (no value) (units unknown) (unknown) (unknown) (no date) (unknown) (unknown) 03/06/23 (units unknown) (unknown) (unknown) (no date) (unknown) (unknown) [address] [place] [address] (un its unknown) (unknown) (unknown) (no date) (unknown) (unknown) 01/23/2022, 9:51. (un its unknown) (unknown) (unknown) (no date) (unknown) (unknown) 03/20/2022, (units unknown) (unknown) (unknown) (no date) (unknown) (unknown) 9:43. [facility], CR, XR LUMBAR SPINE WITH FLEXION EXTENSION 5 (units unknown) (unknown) (unknown) (no date) (unknown) (unknown) Accession Numb er: [id number] (units unknown) (unknown) (unknown) (no date) (unknown) (unknown) Age/Sex: 77 / M Date of Service: (units unknown) (unknown) (unknown) (no date) (unknown) (unknown) [employer] [address] (units unknown) (unknown) (unknown) (no date) (unknown) (unknown) Approved by: Piedad Crystal M.D. on 03/07/2023 at 7:37 (units unknown) (unknown) (unknown) (no date) (unknown) (unknown) COMPARISON: [facility], MR, MR LUMBAR SPINE WITHOUT CONTRAST, (units unknown) (unknown) (unknown) (no date) (unknown) (unknown) : 4 Acct:[id number] (units unknown) (unknown) (unknown) (no date) (unknown) (unknown) Dictated by: Piedad Crystal M.D. on 03/07/2023 at 7:36 (units unknown) (unknown) (unknown) (no date) (unknown) (unknown) FINDINGS: 6 intraoperative fluoroscopy images demonstrate needle placement at (units unknown) (unknown) (unknown) (no date) (unknown) (unknown) IMPRESSION: Fluoroscopy for needle placement. (units unknown) (unknown) (unknown) (no date) (unknown) (unknown) INDICATIONS: SPONDYLOSIS (units unknown) (unknown) (unknown) (no date) (unknown) (unknown) [facility] (uni ts unknown) (unknown) (unknown) (no date) (unknown) (unknown) L4, L5 and (units unknown) (unknown) (unknown) (no date) (unknown) (unknown) Loc: RAD (units unknown) (unknown) (unknown) (no date) (unknown) (unknown) [id number] (units unknown) (unknown) (unknown) (no date) (unknown) (unknown) Ordering Provi rodney: Estuardo Loving D.O. (units unknown) (unknown) (unknown) (no date) (unknown) (unknown) PROCEDURE: HITESH N L/S FACET INJ/BLK 1ST ASHA (units unknown) (unknown) (unknown) (no date) (unknown) (unknown) Patient: Yann Godoy MR#: (units unknown) (unknown) (unknown) (no date) (unknown) (unknown) Procedure: HITESH N l/s facet inj/blk 1st asha (units unknown) (unknown) (unknown) (no date) (unknown) (unknown) S1 bilaterally. (uni ts unknown) (unknown) (unknown) (no date) (unknown) (unknown) Signed (units unknown) (unknown) (unknown) (no date) (unknown) (unknown) VIEWS, (units unknown) (unknown) (unknown) (no date) (unknown) (unknown) XRay Report (units unknown) (unknown) Result panel 6 (unknown) (no date) (unknown) (unknown) (no value) (units unknown) (unknown) (unknown) (no date) (unknown) (unknown) [id number] (units unknown) (unknown) (unknown) (no date) (unknown) (unknown) 03/06/23 0853 (units unknown) (unknown) (unknown) (no date) (unknown) (unknown) 1. BILATERAL- L4, L5 and S1 DIAGNOSTIC MB BLOCKS with LA Anesthetic (units unknown) (unknown) (unknown) (no date) (unknown) (unknown) 200 was inject ed, confirming placement without vascular or intrathecal uptake. (units unknown) (unknown) (unknown) (no date) (unknown) (unknown) After review o f previous anaesthesic history and IV conscious sedation the (units unknown) (unknown) (unknown) (no date) (unknown) (unknown) Age/Sex: 77 / M (uni ts unknown) (unknown) (unknown) (no date) (unknown) (unknown) An informed co nsent document was signed by the patient, witnessed by a nurse, (units unknown) (unknown) (unknown) (no date) (unknown) (unknown) Yann is ref erred by Dr. Boone for treatment of Bilateral Axial LBP. (units unknown) (unknown) (unknown) (no date) (unknown) (unknown) Complications: none (units unknown) (unknown) (unknown) (no date) (unknown) (unknown) DESCRIPTION OF PROCEDURE (units unknown) (unknown) (unknown) (no date) (unknown) (unknown) : 4 Acct:[id number] (units unknown) (unknown) (unknown) (no date) (unknown) (unknown) Date of Servic e: 03/06/23 (units unknown) (unknown) (unknown) (no date) (unknown) (unknown) Date of proced ure: 03/06/23 (units unknown) (unknown) (unknown) (no date) (unknown) (unknown) Date/Time/Diagnoses (units unknown) (unknown) (unknown) (no date) (unknown) (unknown) Fluoroscopical ly guided, contrast-controlled bilateral L4, L5 and S1 medial (units unknown) (unknown) (unknown) (no date) (unknown) (unknown) Following revi ew of allergy and review of potential side effects and (units unknown) (unknown) (unknown) (no date) (unknown) (unknown) In the prone p osition, following sterile prep and drape of the lumbar region, (units unknown) (unknown) (unknown) (no date) (unknown) (unknown) Indications: (units unknown) (unknown) (unknown) (no date) (unknown) (unknown) [address] [address] (units unknown) (unknown) (unknown) (no date) (unknown) (unknown) It has been a pleasure to assist in the diagnostic and therapeutic care of your (units unknown) (unknown) (unknown) (no date) (unknown) (unknown) POST OP INSTRUCTIONS (units unknown) (unknown) (unknown) (no date) (unknown) (unknown) Patient: Yann Godoy MR#: M (units unknown) (unknown) (unknown) (no date) (unknown) (unknown) Physician: Jim Loving (units unknown) (unknown) (unknown) (no date) (unknown) (unknown) Post-procedure diagnosis: same (units unknown) (unknown) (unknown) (no date) (unknown) (unknown) Post-procedure , the patient was monitored initiating provocative activities to (units unknown) (unknown) (unknown) (no date) (unknown) (unknown) Pre-procedure diagnosis: 1. FACET ARTHROPATHY (units unknown) (unknown) (unknown) (no date) (unknown) (unknown) Procedure Note (unit s unknown) (unknown) (unknown) (no date) (unknown) (unknown) Procedure Notes (uni ts unknown) (unknown) (unknown) (no date) (unknown) (unknown) Procedure in d etail + Post-procedure care: (units unknown) (unknown) (unknown) (no date) (unknown) (unknown) Procedure: (units unknown) (unknown) (unknown) (no date) (unknown) (unknown) Provider: Estuardo Loving D.O. (units unknown) (unknown) (unknown) (no date) (unknown) (unknown) Signed By:<Electronically signed by Estuardo Loving D.O.> (units unknown) (unknown) (unknown) (no date) (unknown) (unknown) Subsequently t hen 0.5cc of 0.5% Marcaine solution was injected at each of the (units unknown) (unknown) (unknown) (no date) (unknown) (unknown) Subsequently t hen a 22-gauge 3.5-inch spinal needle was atraumatically (units unknown) (unknown) (unknown) (no date) (unknown) (unknown) The patient to lerated the procedure well without signs or symptoms of (units unknown) (unknown) (unknown) (no date) (unknown) (unknown) The patient wa s provided with a Pain Log to complete over the next several hours (units unknown) (unknown) (unknown) (no date) (unknown) (unknown) Time of proced ure: 08:52 (units unknown) (unknown) (unknown) (no date) (unknown) (unknown) Total Fluorosc opy time (seconds): 14 (units unknown) (unknown) (unknown) (no date) (unknown) (unknown) Total sedation minutes: 22 (units unknown) (unknown) (unknown) (no date) (unknown) (unknown) accomplished w ith a combination of 2mg of Versed was administered by the RN (units unknown) (unknown) (unknown) (no date) (unknown) (unknown) after DO order , titrated to patient comfort during the course of the procedure (units unknown) (unknown) (unknown) (no date) (unknown) (unknown) and placed in the patient's chart. (units unknown) (unknown) (unknown) (no date) (unknown) (unknown) and subsequent days prior to the patient's follow up with the ordering (units unknown) (unknown) (unknown) (no date) (unknown) (unknown) branch blocks with 0.5cc of 0.5% Marcaine. (units unknown) (unknown) (unknown) (no date) (unknown) (unknown) complications prior to transfer to the recovery area continued monitoring (units unknown) (unknown) (unknown) (no date) (unknown) (unknown) complications, including, but not necessarily limited to, infection, allergic (units unknown) (unknown) (unknown) (no date) (unknown) (unknown) corresponding sites at the right L4, L5 and S1 medial branch locations. The (units unknown) (unknown) (unknown) (no date) (unknown) (unknown) , the pat ient indicated that the patient understood and agreed to proceed. (units unknown) (unknown) (unknown) (no date) (unknown) (unknown) identical proc edure was replicated on the left. (units unknown) (unknown) (unknown) (no date) (unknown) (unknown) introduced and advanced under fluoroscopic guidance at each of the corresponding (units unknown) (unknown) (unknown) (no date) (unknown) (unknown) measure the am ount of relief from block of the facetogenic pain. The patient (units unknown) (unknown) (unknown) (no date) (unknown) (unknown) patient ID, pr ocedure to be performed and site of procedure. IV sedation was (units unknown) (unknown) (unknown) (no date) (unknown) (unknown) patient was de emed safe to proceed with today's procedure with IV conscious (units unknown) (unknown) (unknown) (no date) (unknown) (unknown) patient. (units unknown) (unknown) (unknown) (no date) (unknown) (unknown) physician for review and clinical correlation (units unknown) (unknown) (unknown) (no date) (unknown) (unknown) physician. If the patient has studio control operator relief to the solution applied, (units unknown) (unknown) (unknown) (no date) (unknown) (unknown) ramus was iden tified fluoroscopically. Subsequently an anesthetic skin wheal (units unknown) (unknown) (unknown) (no date) (unknown) (unknown) reaction, loca l tissue breakdown, nerve injury, paralysis, stroke and possible (units unknown) (unknown) (unknown) (no date) (unknown) (unknown) reported a VAS of 7 prior to the procedure and a post-procedure VAS of 1. (units unknown) (unknown) (unknown) (no date) (unknown) (unknown) sedation as A class II designation. Safety time-out was performed to confirm (units unknown) (unknown) (unknown) (no date) (unknown) (unknown) sites at the r ight L4, L5 and S1 MB. After negative aspiration, 0.2cc of Isovue (units unknown) (unknown) (unknown) (no date) (unknown) (unknown) the right L4, L5 and S1 anatomical location of the medial branch of the dorsal (units unknown) (unknown) (unknown) (no date) (unknown) (unknown) then they may be a candidate for medial branch rhizotomy. The patient is aware, (units unknown) (unknown) (unknown) (no date) (unknown) (unknown) using 1% lidoc kim solution was initiated at each of the anatomical spots. (units unknown) (unknown) (unknown) (no date) (unknown) (unknown) was provided, once again, with a Pain Log and will follow up with the referring (units unknown) (unknown) (unknown) (no date) (unknown) (unknown) while the aria ent remained responsive to all verbal commands (units unknown) (unknown) (unknown) (no date) (unknown) (unknown) without incident. (u nits unknown) (unknown) Social History date description facility 2023-02-10 00:00 Ex-smoker (finding) [facility] Vital Signs date measurement value units 2023-02-10 00:00 BMI 27.6 kg/m2 2023-02-10 00:00 BP_diastolic 78 mmHg 2023-02-10 00:00 BP_systolic 130 mmHg 2023-02-10 00:00 heart_rate 78 /min 2023-02-10 00:00 height_metric 173.99 cm 2023-02-10 00:00 height_standard 68.5 in 2023-02-10 00:00 o2_saturation 100 % 2023-02-10 00:00 temperature_metric 36.5 C 2023-02-10 00:00 temperature_standard 97.7 F 2023-02-10 00:00 weight_metric 83.46 kg 2023-02-10 00:00 weight_standard 184 lb 2023-03-06 00:00 BP_diastolic 56 mmHg 2023-03-06 00:00 BP_systolic 110 mmHg 2023-03-06 00:00 heart_rate 56 /min 2023-03-06 00:00 o2_saturation 98 % 2023-03-06 00:00 respiration_rate 20 /min 2023-03-06 00:00 temperature_metric 36.61 C 2023-03-06 00:00 temperature_standard 97.9 F
[2023-04-08 02:02] VITALS: BP 119/71
--- NOTE | 2023-04-08 02:20 | ED Physician Documentation ---
PD HPI MALE - Stated complaint Stated Complaint: MALE - Chief complaint Chief Complaint: Abd Pain - History obtained from History obtained from: Patient - Additional information Additional information: The patient comes to the emergency department chief complaint of dysuria and some hematuria this morning. He just had a cystoscopy done about 4 days ago, due to hematuria that he been having. He states he was fine for the first couple of days after, but had some intermittent blood in his urine. He states that he has been on Pyridium which is mostly kept him from having any urinary discomfort, but that today, he had some burning with urination. Was only one episode, and he states that now, he has not had any burning for the last 3 episodes. No fevers or chills. No abdominal pain. No other complaints at this time. PD PAST MEDICAL HISTORY - Past Medical History Cardiovascular: Hypertension, High cholesterol, Coronary artery disease, Atrial fibrillation, Arrhythmia Respiratory: None Neuro: None Endocrine/Autoimmune: None GI: GERD : None HEENT: Other Psych: None Musculoskeletal: Osteoarthritis, Chronic back pain Derm: None - Past Surgical History Past Surgical History: Yes General: Cholecystectomy, Colonoscopy, EGD Ortho: Hip replacement Cardiovascular: Coronary stent Derm: Skin cancer surgery - Present Medications Home Medications: Ambulatory Orders Medication Instructions Recorded Confirmed Atorvastatin [Lipitor] 40 mg ORAL DAILY PM 04/03/17 03/11/20 Metoprolol Tartrate 75 mg PO BID 04/03/17 03/11/20 lisinopriL [Lisinopril] 20 mg PO DAILY 04/03/17 03/11/20 Apixaban [Eliquis] 5 mg PO BID 03/11/20 03/11/20 Aspirin [Aspirin EC] 81 mg PO DAILY PM 03/11/20 03/11/20 B6/Levomefolate/B12/Ala/If 1 each PO DAILY 03/11/20 03/11/20 [Abatrex with Ala Tablet] Cholecalciferol (Vitamin D3) 2,000 unit PO DAILY 03/11/20 03/11/20 [Vitamin D] Magnesium Oxide [Magnesium] 800 mg PO DAILY 03/11/20 03/11/20 Sotalol [Betapace] 80 mg PO BID 03/11/20 03/11/20 - Allergies Allergies/Adverse Reactions: Allergies Allergy/AdvReac Type Severity Reaction Status Date / Time amiodarone Allergy Dizziness Verified 04/08/23 02:00 - Social History Does the pt smoke?: No Smoking Status: Never smoker Does the pt drink ETOH?: No Does the pt have substance abuse?: No - Immunizations Immunizations are current?: Yes - POLST Patient has POLST: No PD ED PE NORMAL - Vitals Vital signs reviewed: Yes - General General: Alert and oriented X 3, No acute distress, Well developed/nourished - HEENT HEENT: Atraumatic, PERRL, EOMI, Moist mucous membranes - Neck Neck: Supple, no meningeal sign - Cardiac Cardiac: RRR, No murmur - Respiratory Respiratory: No respiratory distress, Clear bilaterally - Abdomen Abdomen: Soft, Non tender, Non distended - Derm Derm: Normal color, Warm and dry, No rash - Extremities Extremities: No deformity - Neuro Neuro: Alert and oriented X 3 - Psych Psych: Normal mood, Normal affect Results - Vitals Vitals: Vital Signs - 24 hr 04/08/23 01:55 Temperature 36.6 C Heart Rate 124 H Respiratory 16 Rate Blood Pressure 119/71 O2 Saturation 98 Oxygen O2 Source Room air PD Medical Decision Making - ED course Complexity details: considered differential, d/w patient ED course: I initially ordered a urinalysis, but then the patient decided that since he was feeling somewhat better on the last few episodes of urination, that he would rather not go through with any work-up. Would like to just go home. He stated he would come back if anything seem to be getting worse. We have discussed the usual indications for return. Departure - Departure Disposition: 01 Home, Self Care Clinical Impression: Dysuria Condition: Stable Instructions: ED Dysuria Uncertain Cause Discharge Date/Time: 04/08/23 02:30
== END 2023-04-08 02:30 | disposition home or self-care (01) ==
LOC: ED 01:51
DX: R30.0 Dysuria (principal)
CPT/HCPCS: 99283; 99284

== ENCOUNTER 2023-04-08 12:39 | Emergency (ER) | payer MEDICARE, OTHER ==
--- NOTE | 2023-04-08 12:50 | ED Physician Documentation ---
PD HPI MALE - Stated complaint Stated Complaint: MALE ,BLEEDING - History obtained from History obtained from: Patient - History of Present Illness Timing - onset: Last night Timing - details: Abrupt onset, Still present Associated symptoms: Unable to urinate, Hematuria PD HPI MALE CONTRIB FACTORS: Other (had cystoscopy by Dr. Winchester, Urology at [facility] 4 days ago with some bleeding right after, but then was doing okay without heamturia until last evening when started with bloody urine and felt unable to urinate. Came to ER but passed clot and able to go. Deferrred further treatment. hard to urinate today) Similar symptoms before: Has not had sx before Recently seen: Surgery (cystoscopy [facility] Dr. Winchester [facility]rology.) Review of Systems Constitutional: denies: Fever, Chills Cardiac: reports: Palpitations (has noted heart rate seeming faster at home, when took BP and the monitor said HR 130-140. History of atrial fib with ablation x 2, last one about 2 years ago. On DOAC for this atrial fib. Is not usually in fib.). denies: Chest pain / pressure Respiratory: denies: Dyspnea GI: denies: Abdominal Swelling, Vomiting, Diarrhea : reports: Hesitancy, Unable to Void (difficult adnd having to strain and then pass clot.), Hematuria PD PAST MEDICAL HISTORY - Past Medical History Cardiovascular: Hypertension, High cholesterol, Coronary artery disease, Atrial fibrillation (with ablations and was not in atrial fib most recently visit. HR on ED visit last night was 124, so presume in atrial fib at that time. He does not feel it when occurring per se. ), Arrhythmia Respiratory: None Neuro: None Endocrine/Autoimmune: None GI: GERD : None HEENT: Other Psych: None Musculoskeletal: Osteoarthritis, Chronic back pain Derm: None - Past Surgical History Past Surgical History: Yes General: Cholecystectomy, Colonoscopy, EGD Ortho: Hip replacement Cardiovascular: Coronary stent Derm: Skin cancer surgery - Present Medications Home Medications: Ambulatory Orders Medication Instructions Recorded Confirmed Atorvastatin [Lipitor] 40 mg ORAL DAILY PM 04/03/17 03/11/20 Metoprolol Tartrate 75 mg PO BID 04/03/17 03/11/20 lisinopriL [Lisinopril] 20 mg PO DAILY 04/03/17 03/11/20 Apixaban [Eliquis] 5 mg PO BID 03/11/20 03/11/20 Aspirin [Aspirin EC] 81 mg PO DAILY PM 03/11/20 03/11/20 B6/Levomefolate/B12/Ala/If 1 each PO DAILY 03/11/20 03/11/20 [Abatrex with Ala Tablet] Cholecalciferol (Vitamin D3) 2,000 unit PO DAILY 03/11/20 03/11/20 [Vitamin D] Magnesium Oxide [Magnesium] 800 mg PO DAILY 03/11/20 03/11/20 Sotalol [Betapace] 80 mg PO BID 03/11/20 03/11/20 - Allergies Allergies/Adverse Reactions: Allergies Allergy/AdvReac Type Severity Reaction Status Date / Time amiodarone Allergy Dizziness Verified 04/08/23 02:00 - Social History Does the pt smoke?: No Smoking Status: Never smoker Does the pt drink ETOH?: No Does the pt have substance abuse?: No - Immunizations Immunizations are current?: Yes - POLST Patient has POLST: No PD ED PE NORMAL - Vitals Vital signs reviewed: Yes - General General: Alert and oriented X 3, Well developed/nourished, Other (appears uncomfortable with fullness in bladder and feeling cramping/spasm. ) - Cardiac Cardiac: No: RRR (irregular and fast rate about 140s. ) - Respiratory Respiratory: No respiratory distress, Clear bilaterally - Abdomen Abdomen: Normal bowel sounds, Soft, Non distended, Other (fullness and tender in suprapubic area c/w full bladder. ) - Male Male : Other (some blood with urine out from meatus. He does pass small clot with pushing. No exernal sores/lesions. ) - Rectal Rectal: Deferred - Back Back: No CVA TTP Results - Vitals Vitals: Vital Signs - 24 hr 04/08/23 04/08/23 04/08/23 13:18 13:39 13:55 Temperature 36.2 C L Heart Rate 127 H 135 H 126 H Respiratory 18 18 Rate Blood Pressure 146/101 H 156/114 H 144/106 H O2 Saturation 97 97 99 04/08/23 04/08/23 04/08/23 14:00 14:05 14:15 Temperature Heart Rate 125 H 125 H 124 H Respiratory 18 Rate Blood Pressure 131/91 H 147/107 H 146/100 H O2 Saturation 04/08/23 04/08/23 04/08/23 14:30 14:35 15:00 Temperature Heart Rate 128 H 137 H 125 H Respiratory Rate Blood Pressure 143/117 H 158/144 H 159/102 H O2 Saturation 04/08/23 04/08/23 04/08/23 15:12 15:15 15:20 Temperature Heart Rate 127 H 138 H 123 H Respiratory 19 Rate Blood Pressure 153/92 H 142/109 H 132/88 H O2 Saturation 98 04/08/23 04/08/23 04/08/23 15:25 15:35 15:40 Temperature Heart Rate 125 H 128 H 131 H Respiratory Rate Blood Pressure 134/120 H 127/91 H 102/80 O2 Saturation 04/08/23 04/08/23 04/08/23 15:50 15:55 16:00 Temperature Heart Rate 135 H 131 H 128 H Respiratory 17 Rate Blood Pressure 97/66 101/66 103/82 H O2 Saturation 94 04/08/23 04/08/23 04/08/23 16:05 16:20 16:30 Temperature Heart Rate 135 H 111 H 117 H Respiratory Rate Blood Pressure 108/64 108/72 122/79 O2 Saturation 04/08/23 04/08/23 04/08/23 16:50 17:00 17:24 Temperature Heart Rate 125 H 124 H 139 H Respiratory 18 Rate Blood Pressure 149/84 H 133/94 H 123/98 H O2 Saturation 94 04/08/23 04/08/23 04/08/23 17:30 17:45 17:50 Temperature Heart Rate 120 H 125 H 103 H Respiratory Rate Blood Pressure 129/89 H 111/86 H 111/63 O2 Saturation 04/08/23 04/08/23 04/08/23 17:55 18:00 18:05 Temperature Heart Rate 110 H 106 H 99 Respiratory 18 Rate Blood Pressure 122/80 118/85 H 121/75 O2 Saturation 97 04/08/23 04/08/23 19:12 19:47 Temperature Heart Rate 117 H 128 H Respiratory 18 18 Rate Blood Pressure 123/110 H 131/97 H O2 Saturation 98 95 Oxygen O2 Source Room air - Labs Labs: Laboratory Tests 04/08/23 04/08/23 04/08/23 13:18 13:18 15:39 WBC 10.3 RBC 4.18 L Hgb 13.3 L Hct 41.9 L MCV 100.2 H MCH 31.8 H MCHC 31.7 L RDW 13.5 Plt Count 334 MPV 9.3 Neut # (Auto) 8.0 H Lymph # (Auto) 1.3 L [place] # (Auto) 0.7 Eos # (Auto) 0.2 Baso # (Auto) 0.0 Absolute Nucleated RBC 0.00 Nucleated RBC % 0.0 Sodium 139 Potassium 3.9 Chloride 104 Carbon Dioxide 24 Anion Gap 11.0 BUN 18 Creatinine 0.9 Estimated GFR (MDRD) 82 L Glucose 133 H Calcium 8.7 Magnesium 1.8 Total Bilirubin 0.8 AST 28 ALT 33 Alkaline Phosphatase 84 Total Protein 7.1 Albumin 3.4 Globulin 3.7 Albumin/Globulin Ratio 0.9 L Lipase 27 Urine Color RED/BLOODY Urine Clarity TURBID Urine pH Ur Specific [place] Urine Protein Urine Glucose (UA) Urine Ketones Urine Occult Blood LARGE H Urine Nitrite Urine Bilirubin COLOR INTERFERENCE Urine Urobilinogen Ur Leukocyte Esterase Urine RBC TNTC H Urine WBC 6-10 H Ur Squamous Epith Cells RARE Squamous Urine Bacteria Few Ur Microscopic Review INDICATED Urine Culture Comments NOT INDICATED PD Medical Decision Making - ED course Complexity details: reviewed results, considered differential (hematuria s/p sc ope. Bladder scanner with 240 ml, but he is very uncomfortable, presume causeing spasms of bladder. Can have nursing place [address] and irrigate out clots and the CBI. He is also in fast atrial fib without symptoms but will slow HR to pre-empt symptoms developing. ), d/w patient ED course: he is on DOAC for atrial fib history. Is in fib now, so on DOAC would be good, but with the hematuria and clots, would consider holding the DOAC. WOuld be reasonable to at least hold the Eliquis for 1-2 days until hematuria is improving and if he need sto have repeat cystoscopy. Departure - Departure Disposition: 01 Home, Self Care Clinical Impression: Hematuria, Urinary retention, Paroxysmal atrial fibrillation with rapid ventricular response Condition: Stable Record reviewed to determine appropriate education?: Yes Instructions: ED Catheter Care Benedict, ED Hematuria Comments: Keep the Benedict catheter in place with the leg bag care. You have had these before so you are familiar. Contact your urologist tomorrow to update. You did have reasonable amount of clots in the bladder that was causing the outflow blockage. It seems to be flowing well at this point. You did have atrial fibrillation with a fast rate approximately 140s. We have slowed it down with extra medicine but you are still in fibrillation. I would take your normal metoprolol and sotalol doses tonight. Hold the Eliquis for a day in case need to have repeast cystoscopy. Contact your clerical investigator tomorrow about this. Return to the ER with either problem if feeling worse. Discharge Date/Time: 04/08/23 19:50
[2023-04-08] MEDS ORDERED: METOPROLOL 5 MG/5 ML VIAL IVP STA ×2 (13:11→14:03)
--- OUTSIDE RECORDS SUMMARY | 2023-04-08 13:21 | EXTERNAL MEDICAL SUMMARY RPT | Continuity of Care Document ---
Author Name Unknown Address [address] [place] [address] Phone Organization [facility] Address [address] [place] [address] Phone Care Team Providers Care Formation Testing Operator Name Role Phone [place]io [place] Unavailable Unavailable Problems date description facility 2023-03-06 07:13 Scoliosis, unspecified [facility] 2023-03-06 07:13 Spondylosis without myelopathy or radiculopathy, [facility] 2023-03-06 08:06 Scoliosis, unspecified [facility] 2023-03-06 08:06 Spondylosis without myelopathy or radiculopathy, [facility] Results/Labs test date author facility value unit interpretation Result panel 1 (unknown) (no date) (unknown) (unknown) (no value) (units unknown) (unknown) (unknown) (no date) (unknown) (unknown) [id number] (units unknown) (unknown) (unknown) (no date) (unknown) [...] (unknown) (unknown) (no date) (unknown) (unknown) [place] [address] (units unknown) (unknown) (unknown) (no date) (unknown) (unknown) Attending Dr: Estuardo Loving D.O. (units unknown) (unknown) (unknown) (no date) (unknown) (unknown) Brother Cancer (unit s unknown) (unknown) (unknown) (no date) (unknown) (unknown) Chronic anticoagulation (units unknown) (unknown) (unknown) (no date) (unknown) (unknown) Confirmed 02/10/23] (units unknown) (unknown) (unknown) (no date) (unknown) (unknown) : 4 Acct:[id number] (units unknown) (unknown) (unknown) (no date) (unknown) (unknown) Dementia (units unknown) (unknown) (unknown) (no date) (unknown) (unknown) Dept at [phone]. (units unknown) (unknown) (unknown) (no date) [...] every effort is made to edit content, car painter errors (units unknown) (unknown) (unknown) (no date) (unknown) (unknown) sotalol 80 mg tablet 80 mg PO DAILY 05/22/22 [History Confirmed 02/10/23] (units unknown) (unknown) (unknown) (no date) (unknown) (unknown) tamsulosin 0.4 mg capsule cap PO 05/22/22 [History Confirmed 02/10/23] (units unknown) (unknown) Result panel 2 (unknown) (no date) (unknown) (unknown) (no value) (units unknown) (unknown) (unknown) (no date) (unknown) (unknown) [id number] (units unknown) (unknown) (unknown) (no date) (unknown) [...] unknown) (unknown) (unknown) (no date) (unknown) (unknown) [place] [address] (units unknown) (unknown) (unknown) (no date) (unknown) [...] (unknown) (no date) (unknown) (unknown) : 4 Acct:[id number] (units unknown) (unknown) (unknown) (no date) (unknown) (unknown) Dementia (units unknown) (unknown) (unknown) (no date) (unknown) (unknown) Dept at [phone]. (units unknown) (unknown) (unknown) (no date) [...] every effort is made to edit content, car painter errors (units unknown) (unknown) (unknown) (no date) [...] unknown) (unknown) (unknown) (no date) (unknown) (unknown) [id number] (units unknown) (unknown) (unknown) (no date) (unknown) [...] unknown) (unknown) (unknown) (no date) (unknown) (unknown) [place] [address] (units unknown) (unknown) (unknown) (no date) (unknown) [...] (unknown) (no date) (unknown) (unknown) : 4 Acct:[id number] (units unknown) (unknown) (unknown) (no date) (unknown) (unknown) DTR's symmetric. (un its unknown) (unknown) (unknown) (no date) (unknown) (unknown) Dementia (units unknown) (unknown) (unknown) (no date) (unknown) (unknown) Denies recent trauma, fever or weight loss of unknown origin, immunocompromise (units unknown) (unknown) (unknown) (no date) (unknown) (unknown) Dense atherosc lerotic calcifications. (units unknown) (unknown) (unknown) (no date) (unknown) (unknown) Dept at [phone]. (units unknown) (unknown) (unknown) (no date) [...] (no date) (unknown) (unknown) provided copy the [facility] back exercises further offset his current (units [...] every effort is made to edit content, car painter errors (units unknown) (unknown) (unknown) (no date) [...] symptomatology . He will be wintering in [place] and upon return in January would (units [...] Fly [place] and Rubina Herrera over at [facility] for (units unknown) (unknown) (unknown) (no date) [...] unknown) (unknown) (unknown) (no date) (unknown) (unknown) [id number] (units unknown) (unknown) (unknown) (no date) (unknown) [...] (unknown) (no date) (unknown) (unknown) [place] [employer] [id number] (units unknown) (unknown) (unknown) (no date) (unknown) [...] (unknown) (no date) (unknown) (unknown) : 4 Acct:[id number] (units unknown) (unknown) (unknown) (no date) (unknown) [...] unknown) (unknown) (unknown) (no date) (unknown) (unknown) [place] for elk, deer and upland birds in [...] veloped GI upset.? 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 He reports he was (units unknown) (unknown) [...] (no date) (unknown) (unknown) he retired fro [employer] the [employer] without specific injury illness.? He does report [...] r eports he will be wintering outside [facility]. (units unknown) (unknown) (unknown) (no date) [...] (no date) (unknown) (unknown) provided copy the [facility] back exercises further offset his current (units [...] every effort is made to edit content, car painter errors m (units unknown) (unknown) (unknown) (no [...] symptomatology . He will be wintering in [place] and upon return in January would (units unknown) (unknown) (unknown) (no date) (unknown) (unknown) symptoms or ot her neurologic components; and 4) the imaging does not suggest (units unknown) (unknown) (unknown) (no date) (unknown) (unknown) tamsulosin 0.4 mg capsule cap PO 05/22/22 [History Confirmed 02/10/23] (units unknown) (unknown) (unknown) (no date) (unknown) (unknown) tering in [facility] [place] at the end of July and he will be hunting in [place] (units unknown) (unknown) (unknown) (no date) (unknown) [...] Fly lunsford and Rubina Herrera over at [facility] for (units unknown) (unknown) (unknown) (no date) [...] unknown) (unknown) (unknown) (no date) (unknown) (unknown) [address] [place] [address] (un its unknown) (unknown) (unknown) (no date) (unknown) (unknown) 01/23/2022, 9:51. (un its unknown) (unknown) (unknown) (no date) (unknown) (unknown) 03/20/2022, (units unknown) (unknown) (unknown) (no date) (unknown) (unknown) 9:43. [facility], CR, XR LUMBAR SPINE WITH FLEXION EXTENSION 5 (units unknown) (unknown) (unknown) (no date) (unknown) (unknown) Accession Numb er: [id number] (units unknown) (unknown) (unknown) (no date) (unknown) (unknown) Age/Sex: 77 / M Date of Service: (units unknown) (unknown) (unknown) (no date) (unknown) (unknown) [employer] [employer] [id number] (units unknown) (unknown) (unknown) (no date) (unknown) (unknown) Approved by: Piedad Crystal M.D. on 03/07/2023 at 7:37 (units unknown) (unknown) (unknown) (no date) (unknown) (unknown) COMPARISON: [facility], MR, MR LUMBAR SPINE WITHOUT CONTRAST, (units unknown) (unknown) (unknown) (no date) (unknown) (unknown) : 4 Acct:[id number] (units unknown) (unknown) (unknown) (no date) (unknown) [...] unknown) (unknown) (unknown) (no date) (unknown) (unknown) [facility] (uni ts unknown) (unknown) (unknown) (no date) (unknown) (unknown) L4, L5 and (units unknown) (unknown) (unknown) (no date) (unknown) (unknown) Loc: RAD (units unknown) (unknown) (unknown) (no date) (unknown) (unknown) [id number] (units unknown) (unknown) (unknown) (no date) (unknown) [...] unknown) (unknown) (unknown) (no date) (unknown) (unknown) [id number] (units unknown) (unknown) (unknown) (no date) (unknown) [...] (unknown) (no date) (unknown) (unknown) : 4 Acct:[id number] (units unknown) (unknown) (unknown) (no date) (unknown) [...] unknown) (unknown) (unknown) (no date) (unknown) (unknown) [address] [address] (units unknown) (unknown) (unknown) (no date) (unknown) [...] (unknown) (unknown) physician. If the patient has watch repair person relief to the solution applied, (units unknown) [...] date description facility 2023-02-10 00:00 Ex-smoker (finding) [facility] Vital Signs date measurement value units 2023-02-10 [...]
[2023-04-08 13:23] LABS: BASOPHILS % (AUTO) 0.4 %; EOSINOPHILS # (AUTO) 0.2 10^3/uL (0.0-0.7); EOSINOPHILS % (AUTO) 1.7 %; HCT - HEMATOCRIT 41.9 % (42.0-52.0); HGB - HEMOGLOBIN 13.3 g/dL (14.0-18.0); LYMPHOCYTES # (AUTO) 1.3 10^3/uL (1.5-3.5); MEAN CORPUSCULAR HEMOGLOBIN 31.8 pg (27.0-31.0); MEAN CORPUSCULAR HGB CONC 31.7 g/dL (32.0-36.0); MEAN CORPUSCULAR VOLUME 100.2 fL (80.0-94.0); MEAN PLATELET VOLUME 9.3 fL (7.4-11.4); MONOCYTES # (AUTO) 0.7 10^3/uL (0.0-1.0); MONOCYTES % (AUTO) 6.9 %; NEUTROPHILS % (AUTO) 77.6 %; PLT - PLATELET COUNT 334 10^3/uL (130-450); RED BLOOD COUNT 4.18 10^6/uL (4.70-6.10); RED CELL DISTRIBUTION WIDTH 13.5 % (12.0-15.0); WHITE BLOOD COUNT 10.3 x10^3/uL (4.8-10.8)
[2023-04-08 13:36] LABS: ALBUMIN 3.4 g/dL (3.2-5.5); ALBUMIN/GLOBULIN RATIO 0.9 (1.0-2.2); BILIRUBIN,TOTAL 0.8 mg/dL (0.2-1.0); CALCIUM 8.7 mg/dL (8.5-10.3); CREATININE 0.9 mg/dL (0.6-1.2); MAGNESIUM 1.8 mg/dL (1.7-2.8); POTASSIUM 3.9 mmol/L (3.5-5.0); TOTAL PROTEIN 7.1 g/dL (6.7-8.2)
[2023-04-08] MEDS ORDERED: LIDOCAINE 2% URO-JET 5 ML SYRINGE UR STA (14:11)
[2023-04-08] MEDS ORDERED: HYDROmorphone 0.5 MG/0.5 ML SYRINGE IVP STA (14:29)
[2023-04-08 16:00] LABS: OCCULT BLOOD,URINE LARGE (NEGATIVE)
[2023-04-08 16:03] LABS: BILIRUBIN,URINE COLOR INTERFERENCE (NEGATIVE); CLARITY,URINE TURBID (CLEAR)
[2023-04-08] MEDS ORDERED: diltiaZEM INJ 5 MG/ML VIAL IVP STA ×2 (16:04→17:10)
[2023-04-08 16:17] LABS: BACTERIA,URINE Few /HPF (None Seen); RBC,URINE TNTC /HPF (0-5); SQUAMOUS EPITHELIAL CELL,UR RARE Squamous (<= Few)
--- NOTE | 2023-04-08 19:23 | ED Physician Documentation ---
ED Addendum - Addendum Addendum: 04/08/23 19:[address] Smith at shift change seeing what would happen when CBI was decreased. It did become more bloody but no recurrent obstruction. Patient very much wanted to go home and felt comfortable managing the catheter at home. I did offer to call and transfer to [facility] for potential cystoscopy with cauterization for example and he declined.
[2023-04-08 19:55] VITALS: BP 131/97
== END 2023-04-08 19:50 | disposition home or self-care (01) ==
LOC: ED 12:39
DX: R33.9 Retention of urine, unspecified (principal); R31.0 Gross hematuria; I48.0 Paroxysmal atrial fibrillation; Z79.01 Long term (current) use of anticoagulants; I10 Essential (primary) hypertension; R30.0 Dysuria
CPT/HCPCS: 36415; 51700; 51798; 80053; 81001; 83690; 83735; 85025; 96374; 96375; 96376; 99283; 99284; J1170; 81003; 87086

== ENCOUNTER 2023-04-13 13:41 | Emergency (ER) | payer MEDICARE, OTHER ==
[2023-04-13 13:52] VITALS: BP 137/95
--- NOTE | 2023-04-13 14:16 | ED Physician Documentation ---
History of Present Illness - Stated complaint Stated Complaint: MALE - Chief complaint Chief Complaint: General - Additonal information Additional information: 77-year-old male presents emergency department requesting his Rebolledo be disconti nued. He does have a history of being anticoagulated ON ELIQUIS On April 04 he had cystoscopy with biopsy. Subsequently he developed hematuria and then urinary obstruction and was seen here in this emergency department on 08 April. He did have bladder irrigation and subsequently a Rebolledo placed. Patient states that the Rebolledo continued to have red bloody drainage until April 12 when it started to clear and has now been clear for over 24 hours. He is requesting Rebolledo removal. No fevers. No abdominal pain. Review of Systems Constitutional: denies: Fever : reports: Other (Rebolledo catheter in place) PD PAST MEDICAL HISTORY - Past Medical History Cardiovascular: Hypertension, High cholesterol, Coronary artery disease, Atrial fibrillation (with ablations and was not in atrial fib most recently visit. HR on ED visit last night was 124, so presume in atrial fib at that time. He does not feel it when occurring per se. ), Arrhythmia Respiratory: None Neuro: None Endocrine/Autoimmune: None GI: GERD : None HEENT: Other Psych: None Musculoskeletal: Osteoarthritis, Chronic back pain Derm: None - Past Surgical History Past Surgical History: Yes General: Cholecystectomy, Colonoscopy, EGD Ortho: Hip replacement Cardiovascular: Coronary stent Derm: Skin cancer surgery - Present Medications Home Medications: Ambulatory Orders Medication Instructions Recorded Confirmed Atorvastatin [Lipitor] 40 mg ORAL DAILY PM 04/03/17 03/11/20 Metoprolol Tartrate 75 mg PO BID 04/03/17 03/11/20 lisinopriL [Lisinopril] 20 mg PO DAILY 04/03/17 03/11/20 Apixaban [Eliquis] 5 mg PO BID 03/11/20 03/11/20 Aspirin [Aspirin EC] 81 mg PO DAILY PM 03/11/20 03/11/20 B6/Levomefolate/B12/Ala/If 1 each PO DAILY 03/11/20 03/11/20 [Abatrex with Ala Tablet] Cholecalciferol (Vitamin D3) 2,000 unit PO DAILY 03/11/20 03/11/20 [Vitamin D] Magnesium Oxide [Magnesium] 800 mg PO DAILY 03/11/20 03/11/20 Sotalol [Betapace] 80 mg PO BID 03/11/20 03/11/20 - Allergies Allergies/Adverse Reactions: Allergies Allergy/AdvReac Type Severity Reaction Status Date / Time amiodarone Allergy Dizziness Verified 04/08/23 02:00 - Social History Does the pt smoke?: No Smoking Status: Never smoker Does the pt drink ETOH?: No Does the pt have substance abuse?: No - Immunizations Immunizations are current?: Yes - POLST Patient has POLST: No PD ED PE EXPANDED - General General: Alert, No acute distress - Abdomen Abdomen: Normal Bowel sounds. No: Tender to palpation - Male Male : Other (Rebolledo catheter was in place seem to be draining clear yellow urine without obvious hematuria. The balloon was fully deflated and the catheter was personally removed by myself intact.) Results - Vitals Vitals: Vital Signs - 24 hr 04/13/23 13:45 Temperature 36.7 C Heart Rate 100 Respiratory 16 Rate Blood Pressure 137/95 H O2 Saturation 99 Oxygen O2 Source Room air PD Medical Decision Making - ED course Complexity details: considered differential, d/w patient ED course: 77-year-old male here requesting Rebolledo catheter be removed. Was seen here on 08 April in which a catheter was placed secondary to obstruction by hematuria. He had received a cystoscopy and biopsy on 04 April and was noted to be anticoagulated on Eliquis. Over the ensuing days the hematuria has cleared. Patient is requesting Rebolledo removal and trial of void. I easily remove the Rebolledo intact. Patient request to be discharged home. We discussed observing for micturition over the next 6 to 8 hours. If unable to void he will return to the ER and the catheter would then be replaced. Departure - Departure Disposition: 01 Home, Self Care Clinical Impression: Encounter for Rebolledo catheter removal Condition: Stable Record reviewed to determine appropriate education?: Yes Comments: Yann your urine today is clear and you are requesting the Rebolledo be removed which we have. Is important you drink a lot of water at home. If you find that you are unable to adequately urinate after 6 to 8 hours then you will need to return to the ER and the Rebolledo will be replaced.
--- OUTSIDE RECORDS SUMMARY | 2023-04-13 14:17 | EXTERNAL MEDICAL SUMMARY RPT | Continuity of Care Document ---
Author Name Unknown Address [address] [place] [address] Phone Organization [facility] Address [address] [place] [address] Phone Care Team Providers Care Lifestyle Director Name Role Phone Helio [place] Unavailable Unavailable Problems date description facility 2023-03-06 07:13 Scoliosis, unspecified [facility] 2023-03-06 07:13 Spondylosis without myelopathy or radiculopathy, [facility] 2023-03-06 08:06 Scoliosis, unspecified [facility] 2023-03-06 08:06 Spondylosis without myelopathy or radiculopathy, [facility] Results/Labs test date author facility value unit interpretation Result panel 1 (unknown) (no date) (unknown) (unknown) (no value) (units unknown) (unknown) (unknown) (no date) (unknown) (unknown) [id number] (units unknown) (unknown) (unknown) (no date) (unknown) [...] (unknown) (unknown) (no date) (unknown) (unknown) [place] [id number] (units unknown) (unknown) (unknown) (no date) (unknown) (unknown) Attending Dr: Estuardo Loving D.O. (units unknown) (unknown) (unknown) (no date) (unknown) (unknown) Brother Cancer (unit s unknown) (unknown) (unknown) (no date) (unknown) (unknown) Chronic anticoagulation (units unknown) (unknown) (unknown) (no date) (unknown) (unknown) Confirmed 02/10/23] (units unknown) (unknown) (unknown) (no date) (unknown) (unknown) : 4 Acct:[id number] (units unknown) (unknown) (unknown) (no date) (unknown) [...] every effort is made to edit content, firebrick layer errors (units unknown) (unknown) (unknown) (no date) (unknown) (unknown) sotalol 80 mg tablet 80 mg PO DAILY 05/22/22 [History Confirmed 02/10/23] (units unknown) (unknown) (unknown) (no date) (unknown) (unknown) tamsulosin 0.4 mg capsule cap PO 05/22/22 [History Confirmed 02/10/23] (units unknown) (unknown) Result panel 2 (unknown) (no date) (unknown) (unknown) (no value) (units unknown) (unknown) (unknown) (no date) (unknown) (unknown) [id number] (units unknown) (unknown) (unknown) (no date) (unknown) [...] unknown) (unknown) (unknown) (no date) (unknown) (unknown) [place] [address] (units unknown) (unknown) (unknown) (no date) (unknown) [...] (unknown) (no date) (unknown) (unknown) : 4 Acct:[id number] (units unknown) (unknown) (unknown) (no date) (unknown) (unknown) Dementia (units unknown) (unknown) (unknown) (no date) (unknown) (unknown) Dept at [phone]. (units unknown) (unknown) (unknown) (no date) [...] every effort is made to edit content, firebrick layer errors (units unknown) (unknown) (unknown) (no date) [...] unknown) (unknown) (unknown) (no date) (unknown) (unknown) [id number] (units unknown) (unknown) (unknown) (no date) (unknown) [...] unknown) (unknown) (unknown) (no date) (unknown) (unknown) [place] [address] (units unknown) (unknown) (unknown) (no date) (unknown) [...] (unknown) (no date) (unknown) (unknown) : 4 Acct:[id number] (units unknown) (unknown) (unknown) (no date) (unknown) (unknown) DTR's symmetric. (un its unknown) (unknown) (unknown) (no date) (unknown) (unknown) Dementia (units unknown) (unknown) (unknown) (no date) (unknown) (unknown) Denies recent trauma, fever or weight loss of unknown origin, immunocompromise (units unknown) (unknown) (unknown) (no date) (unknown) (unknown) Dense atherosc lerotic calcifications. (units unknown) (unknown) (unknown) (no date) (unknown) (unknown) Dept at [phone]. (units unknown) (unknown) (unknown) (no date) [...] (no date) (unknown) (unknown) provided copy the [facility] back exercises further offset his current [...] every effort is made to edit content, firebrick layer errors (units unknown) (unknown) (unknown) (no date) [...] symptomatology . He will be wintering in [place] and upon return in January would (units [...] Fly [place] and Rubina Herrera over at [facility] for (units unknown) (unknown) (unknown) (no [...] unknown) (unknown) (unknown) (no date) (unknown) (unknown) [id number] (units unknown) (unknown) (unknown) (no date) (unknown) [...] (unknown) (no date) (unknown) (unknown) [employer] [employer] [id number] (units unknown) (unknown) (unknown) (no date) (unknown) [...] (unknown) (no date) (unknown) (unknown) : 4 Acct:[id number] (units unknown) (unknown) (unknown) (no date) (unknown) [...] unknown) (unknown) (unknown) (no date) (unknown) (unknown) [place] el[place], deer and upl[place] birds in [...] veloped GI upset.? 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 He reports he was (units unknown) (unknown) [...] (no date) (unknown) (unknown) he retired fro [employer] without specific injury illness.? He does report [...] r eports he will be wintering outside [facility]. (units unknown) (unknown) (unknown) (no date) [...] (no date) (unknown) (unknown) provided copy the [facility] back exercises further offset his current [...] every effort is made to edit content, firebrick layer errors m (units unknown) (unknown) (unknown) (no [...] symptomatology . He will be wintering in [place] and upon return in January would (units unknown) (unknown) (unknown) (no date) (unknown) (unknown) symptoms or ot her neurologic components; and 4) the imaging does not suggest (units unknown) (unknown) (unknown) (no date) (unknown) (unknown) tamsulosin 0.4 mg capsule cap PO 05/22/22 [History Confirmed 02/10/23] (units unknown) (unknown) (unknown) (no date) (unknown) (unknown) tering in [facility] [place] at the end of July and he will be hunting in [place] (units unknown) (unknown) (unknown) (no date) (unknown) [...] Fly luns[place] and Rubina Herrera over at [facility] for (units unknown) (unknown) (unknown) (no [...] (unknown) (unknown) (no date) (unknown) (unknown) [address] [place] [address] (un its unknown) (unknown) (unknown) (no date) (unknown) (unknown) 01/23/2022, 9:51. (un its unknown) (unknown) (unknown) (no date) (unknown) (unknown) 03/20/2022, (units unknown) (unknown) (unknown) (no date) (unknown) (unknown) 9:43. [facility], CR, XR LUMBAR SPINE WITH FLEXION EXTENSION 5 (units unknown) (unknown) (unknown) (no date) (unknown) (unknown) Accession Numb er: [id number] (units unknown) (unknown) (unknown) (no date) (unknown) (unknown) Age/Sex: 77 / M Date of Service: (units unknown) (unknown) (unknown) (no date) (unknown) (unknown) [place] [employer] [id number] (units unknown) (unknown) (unknown) (no date) (unknown) (unknown) Approved by: Piedad Crystal M.D. on 03/07/2023 at 7:37 (units unknown) (unknown) (unknown) (no date) (unknown) (unknown) COMPARISON: [facility], MR, MR LUMBAR SPINE WITHOUT CONTRAST, (units unknown) (unknown) (unknown) (no date) (unknown) (unknown) : 4 Acct:[id number] (units unknown) (unknown) (unknown) (no date) (unknown) [...] unknown) (unknown) (unknown) (no date) (unknown) (unknown) [facility] (uni ts unknown) (unknown) (unknown) (no date) (unknown) (unknown) L4, L5 and (units unknown) (unknown) (unknown) (no date) (unknown) (unknown) Loc: RAD (units unknown) (unknown) (unknown) (no date) (unknown) (unknown) [id number] (units unknown) (unknown) (unknown) (no date) (unknown) [...] unknown) (unknown) (unknown) (no date) (unknown) (unknown) [id number] (units unknown) (unknown) (unknown) (no date) (unknown) [...] (unknown) (no date) (unknown) (unknown) : 4 Acct:[id number] (units unknown) (unknown) (unknown) (no date) (unknown) [...] unknown) (unknown) (unknown) (no date) (unknown) (unknown) [address] [address] (units unknown) (unknown) (unknown) (no date) (unknown) [...] (unknown) (unknown) physician. 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
== END 2023-04-13 14:19 | disposition home or self-care (01) ==
LOC: ED 13:41
DX: Z46.6 Encounter for fitting and adjustment of urinary device (principal); I10 Essential (primary) hypertension; E78.00 Pure hypercholesterolemia, unspecified; I25.10 Atherosclerotic heart disease of native coronary artery without angina pectoris; I48.91 Unspecified atrial fibrillation; Z79.01 Long term (current) use of anticoagulants; Z79.899 Other long term (current) drug therapy; Z79.82 Long term (current) use of aspirin
CPT/HCPCS: 99281; 99282

== ENCOUNTER 2023-09-13 11:49 | Emergency (ER) | payer MEDICARE, OTHER ==
[2023-09-13 12:16] VITALS: BP 140/70; O2SAT 98
[2023-09-13] MEDS ORDERED: MOLNUPIRAVIR PREPACK PO STA (13:08)
--- NOTE | 2023-09-13 13:10 | ED Physician Documentation ---
History of Present Illness - Stated complaint Stated Complaint: COVID + HOME TEST - Chief complaint Chief Complaint: General - History obtained from History obtained from: Patient - Additonal information Additional information: 78-year-old gentleman with history of A-fib, cardioverted 3 weeks ago and on Eliquis, sotalol, and other cardiac medications developed runny nose and sore throat last night and tested positive for COVID today. His is also sick and he is here wondering about antiviral medication. PD PAST MEDICAL HISTORY - Past Medical History Cardiovascular: Hypertension, High cholesterol, Coronary artery disease, Atrial fibrillation, Arrhythmia Respiratory: None Neuro: None Endocrine/Autoimmune: None GI: GERD : None HEENT: Other Psych: None Musculoskeletal: Osteoarthritis, Chronic back pain Derm: None - Past Surgical History Past Surgical History: Yes General: Cholecystectomy, Colonoscopy, EGD Ortho: Hip replacement Cardiovascular: Coronary stent Derm: Skin cancer surgery - Present Medications Home Medications: Ambulatory Orders Medication Instructions Recorded Confirmed Atorvastatin [Lipitor] 40 mg ORAL DAILY PM 04/03/17 03/11/20 Metoprolol Tartrate 75 mg PO BID 04/03/17 03/11/20 lisinopriL [Lisinopril] 20 mg PO DAILY 04/03/17 03/11/20 Apixaban [Eliquis] 5 mg PO BID 03/11/20 03/11/20 Aspirin [Aspirin EC] 81 mg PO DAILY PM 03/11/20 03/11/20 B6/Levomefolate/B12/Ala/If 1 each PO DAILY 03/11/20 03/11/20 [Abatrex with Ala Tablet] Cholecalciferol (Vitamin D3) 2,000 unit PO DAILY 03/11/20 03/11/20 [Vitamin D] Magnesium Oxide [Magnesium] 800 mg PO DAILY 03/11/20 03/11/20 Sotalol [Betapace] 80 mg PO BID 03/11/20 03/11/20 - Allergies Allergies/Adverse Reactions: Allergies Allergy/AdvReac Type Severity Reaction Status Date / Time amiodarone Allergy Dizziness Verified 04/08/23 02:00 - Social History Does the pt smoke?: No Smoking Status: Never smoker Does the pt drink ETOH?: No Does the pt have substance abuse?: No - Immunizations Immunizations are current?: Yes - POLST Patient has POLST: No PD ED PE NORMAL - Vitals Vital signs reviewed: Yes - General General: Alert and oriented X 3, No acute distress - Cardiac Cardiac: RRR - Neuro Neuro: Alert and oriented X 3, Normal speech - Psych Psych: Normal mood, Normal affect Results - Vitals Vitals: Vital Signs - 24 hr 09/13/23 12:09 Temperature 36.5 C Heart Rate 87 Respiratory 20 Rate Blood Pressure 140/70 H O2 Saturation 98 Oxygen O2 Source Room air PD Medical Decision Making - ED course ED course: We discussed paxlovid, but he would either be at significant risk of being on the sotalol and would have to halve his Eliquis and stop his statin. We discussed options and he would like to go ahead with molnupiravir instead knowing it is likely less effective. Departure - Departure Disposition: 01 Home, Self Care Clinical Impression: COVID-19 Condition: Good Record reviewed to determine appropriate education?: Yes Instructions: ED Viral Syndrome Comments: As discussed, we are starting molnupiravir which is a different antiviral medication then paxlovid and is probably slightly less effective, that said paxlovid it would have significant interactions with your other cardiac medications. Return if worse.
== END 2023-09-13 13:34 | disposition home or self-care (01) ==
LOC: ED 11:49
DX: U07.1 COVID-19 (principal); I10 Essential (primary) hypertension; E78.00 Pure hypercholesterolemia, unspecified; I48.91 Unspecified atrial fibrillation; Z79.01 Long term (current) use of anticoagulants; Z79.899 Other long term (current) drug therapy
CPT/HCPCS: 99283

== ENCOUNTER 2024-03-05 12:00 | Outpatient (CLI) | payer MEDICARE, OTHER | END 2024-03-05 23:59 | disposition left against medical advice (07) | LOC: EMS 12:00 | DX: R53.1 Weakness (principal); R53.81 Other malaise; W18.12XA Fall from or off toilet with subsequent striking against object, initial encounter; Y92.002 Bathroom of unspecified non-institutional (private) residence as the place of occurrence of the external cause ==

== ENCOUNTER 2024-03-08 09:59 | Outpatient (CLI) | payer MEDICARE, OTHER | END 2024-03-08 23:59 | disposition EMS.NT | LOC: EMS 09:59 | DX: R06.02 Shortness of breath (principal) ==

== ENCOUNTER 2024-03-23 11:14 | Outpatient (CLI) | payer MEDICARE, OTHER ==
[2024-03-23 11:30] LABS: CALCIUM 9.9 mg/dL (8.5-10.3); CREATININE 0.5 mg/dL (0.6-1.3); POTASSIUM 3.9 mmol/L (3.5-4.5)
== END 2024-03-23 11:15 | disposition home or self-care (01) ==
LOC: LAB 11:14
DX: I10 Essential (primary) hypertension (principal)
CPT/HCPCS: 36415; 80048

== ENCOUNTER 2024-03-31 08:00 | Outpatient (CLI) | payer MEDICARE, OTHER ==
[2024-03-31 17:56] LABS: BASOPHILS # (AUTO) 0.1 10^3/uL (0.0-0.1); BASOPHILS % (AUTO) 0.3 %; EOSINOPHILS # (AUTO) 0.4 10^3/uL (0.0-0.7); EOSINOPHILS % (AUTO) 1.6 %; HCT - HEMATOCRIT 31.6 % (42.0-52.0); HGB - HEMOGLOBIN 9.2 g/dL (14.0-18.0); LYMPHOCYTES # (AUTO) 1.3 10^3/uL (1.5-3.5); LYMPHOCYTES % (AUTO) 4.9 %; MEAN CORPUSCULAR HEMOGLOBIN 25.5 pg (27.0-31.0); MEAN CORPUSCULAR HGB CONC 29.1 g/dL (32.0-36.0); MEAN CORPUSCULAR VOLUME 87.5 fL (80.0-94.0); MEAN PLATELET VOLUME 9.7 fL (7.4-11.4); MONOCYTES # (AUTO) 1.3 10^3/uL (0.0-1.0); NEUTROPHILS # (AUTO) 23.4 10^3/uL (1.5-6.6); NEUTROPHILS % (AUTO) 87.3 %; PLT - PLATELET COUNT 491 10^3/uL (130-450); RED BLOOD COUNT 3.61 10^6/uL (4.70-6.10); RED CELL DISTRIBUTION WIDTH 18.1 % (12.0-15.0); WHITE BLOOD COUNT 26.8 x10^3/uL (4.8-10.8)
[2024-03-31 18:13] LABS: CALCIUM 10.2 mg/dL (8.5-10.3); CREATININE 0.5 mg/dL (0.6-1.3); POTASSIUM 3.3 mmol/L (3.5-4.5)
[2024-03-31 18:40] LABS: DIFFERENTIAL COMMENT MANUAL=AUTO DIFF; PLATELET ESTIMATE, MANUAL INCREASED (>450,000) (NORMAL); PLATELET MORPHOLOGY NORMAL APPEARANCE (NORMAL)
== END 2024-03-31 23:59 | disposition home or self-care (01) ==
LOC: LAB.R 08:00
PROVIDERS: ATTEND Family Medicine
DX: N13.2 Hydronephrosis with renal and ureteral calculous obstruction (principal)
CPT/HCPCS: 80048; 85025

== ENCOUNTER 2024-04-06 16:11 | Outpatient (CLI) | payer MEDICARE, OTHER | END 2024-04-06 16:12 | disposition critical access hospital (66) | LOC: EMS 16:11 | DX: R31.9 Hematuria, unspecified (principal); N48.89 Other specified disorders of penis | CPT/HCPCS: A0425; A0429 ==

== ENCOUNTER 2024-04-06 16:18 | Emergency (ER) | payer MEDICARE, OTHER ==
--- NOTE | 2024-04-06 16:31 | ED Physician Documentation ---
PD HPI MALE - Stated complaint Stated Complaint: MALE - History obtained from History obtained from: Patient - Additional information Additional information: 78-year-old gentleman is in a shelter. Recently had a kidney stone on the left side and needed a nephrostomy which was taken out he thinks a little over a week ago. He comes in from the shelter because it was noted that he had blood in his urine. He really did not notice it, he says he is incontinent just uric needs into a diaper but the [employer]MENT[employer]IST[employer] at the facility noted it. He really has no current complaints, he does not feel like his urinary bladder is obstructed which she has had before and he also has a history of bladder cancer. His urologist is Dr. Winchester in [place]. PD PAST MEDICAL HISTORY - Past Medical History Cardiovascular: Hypertension, High cholesterol, Coronary artery disease, Atrial fibrillation, Arrhythmia Respiratory: None Neuro: None Endocrine/Autoimmune: None GI: GERD : None HEENT: Other Psych: None Musculoskeletal: Osteoarthritis, Chronic back pain Derm: None - Past Surgical History Past Surgical History: Yes General: Cholecystectomy, Colonoscopy, EGD Ortho: Hip replacement Cardiovascular: Coronary stent Derm: Skin cancer surgery - Present Medications Home Medications: Ambulatory Orders Medication Instructions Recorded Confirmed Atorvastatin [Lipitor] 40 mg ORAL DAILY PM 04/03/17 03/11/20 Metoprolol Tartrate 75 mg PO BID 04/03/17 03/11/20 lisinopriL [Lisinopril] 20 mg PO DAILY 04/03/17 03/11/20 Apixaban [Eliquis] 5 mg PO BID 03/11/20 03/11/20 Aspirin [Aspirin EC] 81 mg PO DAILY PM 03/11/20 03/11/20 B6/Levomefolate/B12/Ala/If 1 each PO DAILY 03/11/20 03/11/20 [Abatrex with Ala Tablet] Cholecalciferol (Vitamin D3) 2,000 unit PO DAILY 03/11/20 03/11/20 [Vitamin D] Magnesium Oxide [Magnesium] 800 mg PO DAILY 03/11/20 03/11/20 Sotalol [Betapace] 80 mg PO BID 03/11/20 03/11/20 Cefdinir 300 mg PO BID #20 cap 04/06/24 - Allergies Allergies/Adverse Reactions: Allergies Allergy/AdvReac Type Severity Reaction Status Date / Time amiodarone Allergy Dizziness Verified 04/08/23 02:00 - Social History Does the pt smoke?: No Smoking Status: Never smoker Does the pt drink ETOH?: No Does the pt have substance abuse?: No - Immunizations Immunizations are current?: Yes - POLST Patient has POLST: No PD ED PE NORMAL - Vitals Vital signs reviewed: Yes - General General: Alert and oriented X 3, No acute distress - Abdomen Abdomen: Normal bowel sounds, Soft, Non tender - Back Back: No CVA TTP - Derm Derm: Normal color, Warm and dry - Neuro Neuro: Alert and oriented X 3, Normal speech - Psych Psych: Normal mood, Normal affect Results - Vitals Vitals: Vital Signs - 24 hr 04/06/24 16:25 Temperature 36.3 C L Heart Rate 86 Respiratory 18 Rate Blood Pressure 121/64 O2 Saturation 95 Oxygen O2 Source Room air - Labs Labs: Laboratory Tests 04/06/24 04/06/24 04/06/24 17:00 17:12 17:12 WBC 22.8 H RBC 4.01 L Hgb 10.0 L Hct 34.9 L MCV 87.0 MCH 24.9 L MCHC 28.7 L RDW 17.8 H Plt Count 501 H MPV 8.9 Neut # (Auto) 19.9 H Lymph # (Auto) 1.3 L [place] # (Auto) 1.1 H Eos # (Auto) 0.2 Baso # (Auto) 0.0 Absolute Nucleated RBC 0.00 Band Neuts % (Manual) Not Reportable Abnorm Lymph % (Manual) Not Reportable Nucleated RBC % 0.0 Neutrophils # (Manual) Not Reportable Lymphocytes # (Manual) Not Reportable Monocytes # (Manual) Not Reportable Eosinophils # (Manual) Not Reportable Basophils # (Manual) Not Reportable Differential Comment MANUAL=AUTO DIFF WBC Morphology 1+ SMUDGE CELLS Platelet Estimate INCREASED (>450,000) Platelet Morphology NORMAL APPEARANCE RBC Morph Micro Appear 1+ STOMATOCYTES PT 20.6 H INR 2.0 H Sodium Potassium Chloride Carbon Dioxide Anion Gap BUN Creatinine Estimated GFR (MDRD) Glucose Lactic Acid Calcium Total Bilirubin AST ALT Alkaline Phosphatase Total Protein Albumin Globulin Albumin/Globulin Ratio Urine Color RED/BLOODY Urine Clarity CLOUDY Urine pH 7.0 Ur Specific [place] 1.020 Urine Protein 100 H Urine Glucose (UA) NEGATIVE Urine Ketones NEGATIVE Urine Occult Blood LARGE H Urine Nitrite POSITIVE H Urine Bilirubin SMALL H Urine Urobilinogen 0.2 (NORMAL) Ur Leukocyte Esterase LARGE H Urine RBC TNTC H Urine WBC 11-25 H Ur Squamous Epith Cells RARE Squamous Urine Bacteria Rare Ur Microscopic Review INDICATED Urine Culture Comments INDICATED 04/06/24 04/06/24 17:12 17:50 WBC RBC Hgb Hct MCV MCH MCHC RDW Plt Count MPV Neut # (Auto) Lymph # (Auto) [place] # (Auto) Eos # (Auto) Baso # (Auto) Absolute Nucleated RBC Band Neuts % (Manual) Abnorm Lymph % (Manual) Nucleated RBC % Neutrophils # (Manual) Lymphocytes # (Manual) Monocytes # (Manual) Eosinophils # (Manual) Basophils # (Manual) Differential Comment WBC Morphology Platelet Estimate Platelet Morphology RBC Morph Micro Appear PT INR Sodium 138 Potassium 3.9 Chloride 101 Carbon Dioxide 33 H Anion Gap 4.0 L BUN 18 Creatinine 0.6 Estimated GFR (MDRD) 130 Glucose 108 H Lactic Acid 1.4 Calcium 10.8 H Total Bilirubin 0.6 AST 22 ALT 22 Alkaline Phosphatase 121 Total Protein 6.5 Albumin 2.5 L Globulin 4.0 Albumin/Globulin Ratio 0.6 L Urine Color Urine Clarity Urine pH Ur Specific [place] Urine Protein Urine Glucose (UA) Urine Ketones Urine Occult Blood Urine Nitrite Urine Bilirubin Urine Urobilinogen Ur Leukocyte Esterase Urine RBC Urine WBC Ur Squamous Epith Cells Urine Bacteria Ur Microscopic Review Urine Culture Comments - Rads (name of study) CT KUB Relevant Findings:: Final report received, EMP independent interpretation of test PD Medical Decision Making - ED course ED course: He presents with gross painless hematuria. No clots noted. He had a low postvoid residual here and the workup demonstrated significant leukocytosis at 22,000 but noting that it was 26,000 a few days ago. His INR is elevated related to his Eliquis. CMP grossly unremarkable. Urinalysis with positive nitrate and blood and white cells with rare bacteria. He had a recent kidney stone which was not manipulated and he needed a nephrostomy related to it which was removed about a week ago. Given the signs of infection I do worry that he may have a blocking kidney stone with infection although his urinalysis is kind of underwhelming from that respect with only rare bacteriuria and a relatively low number of white cells. That said, given his leukocytosis seems reasonable to culture him up, CT him and administer IV antibiotics (I ordered Rocephin). He appears well though with no systemic signs of sepsis such as hypotension or fever. No tachycardia or tachypnea either. CT does not demonstrate stent occlusion or other significant abnormalities related to his current chief complaints. He may have an underlying pneumonia and antibiotics are appropriate for both. He was administered IV Rocephin here and his port be accessed. Given a copy of the CAT scan on CD and he has appropriate follow-up with urology and oncology. Departure - Departure Disposition: Home, Self Care Clinical Impression: Ureteral stent present UTI (urinary tract infection) Qualifiers: Urinary tract infection type: site unspecified Hematuria presence: with hematuria Qualified Code(s): N39.0 - Urinary tract infection, site not specified Condition: Good Record reviewed to determine appropriate education?: Yes Instructions: ED UTI Cystitis Male Prescriptions: Cefdinir 300 mg PO BID #20 cap Comments: You were seen today for an infection in the urine. That is probably was causing the bleeding. Your white count was 22,000, but we know it was actually 26,000 a week ago. So both are elevated but it has improved. Otherwise your kidney function is good and the CAT scan shows the left ureteral stent in place without occlusion. 1. You should follow-up with Dr. Winchester as scheduled, take the copy of the CAT scan with you on CD to that visit. 2. Follow-up with Dr. Ramos on Friday as scheduled. Make sure he is aware of the above labs with the specific question of should chemotherapy be continued as usual or if there needs to be a break. I sent the prescription for antibiotics to [facility] in [place]. Return for new or worsening symptoms. There is a urine culture pending and we will call if it necessitates a change in antibiotics in a couple of days.
[2024-04-06] MEDS: LIDOCAINE 2% URO-JET 5 ML SYRINGE UR STA (16:41)
[2024-04-06 17:21] LABS: BILIRUBIN,URINE SMALL (NEGATIVE); GLUCOSE, URINE (UA) NEGATIVE (NEGATIVE); KETONES,URINE (UA) NEGATIVE (NEGATIVE); LEUKOCYTE ESTERASE, URINE LARGE (NEGATIVE); NITRITE,URINE POSITIVE (NEGATIVE); OCCULT BLOOD,URINE LARGE (NEGATIVE); PROTEIN,URINE 100 mg/dL (NEGATIVE); UROBILINOGEN,URINE 0.2 (NORMAL) E.U./dL (NORMAL)
[2024-04-06 17:21] LABS: BASOPHILS % (AUTO) 0.2 %; EOSINOPHILS # (AUTO) 0.2 10^3/uL (0.0-0.7); EOSINOPHILS % (AUTO) 1.1 %; HCT - HEMATOCRIT 34.9 % (42.0-52.0); LYMPHOCYTES # (AUTO) 1.3 10^3/uL (1.5-3.5); LYMPHOCYTES % (AUTO) 5.8 %; MEAN CORPUSCULAR HEMOGLOBIN 24.9 pg (27.0-31.0); MEAN CORPUSCULAR HGB CONC 28.7 g/dL (32.0-36.0); MEAN PLATELET VOLUME 8.9 fL (7.4-11.4); MONOCYTES # (AUTO) 1.1 10^3/uL (0.0-1.0); MONOCYTES % (AUTO) 4.8 %; NEUTROPHILS # (AUTO) 19.9 10^3/uL (1.5-6.6); NEUTROPHILS % (AUTO) 87.4 %; PLT - PLATELET COUNT 501 10^3/uL (130-450); RED BLOOD COUNT 4.01 10^6/uL (4.70-6.10); RED CELL DISTRIBUTION WIDTH 17.8 % (12.0-15.0); WHITE BLOOD COUNT 22.8 x10^3/uL (4.8-10.8)
[2024-04-06 17:25] LABS: CLARITY,URINE CLOUDY (CLEAR)
[2024-04-06 17:26] LABS: BACTERIA,URINE Rare /HPF (None Seen); RBC,URINE TNTC /HPF (0-5); SQUAMOUS EPITHELIAL CELL,UR RARE Squamous (<= Few)
[2024-04-06 17:26] LABS: PT - PROTHROMBIN TIME 20.6 secs (9.9-12.6)
[2024-04-06 17:33] LABS: ALBUMIN 2.5 g/dL (3.2-5.5); ALBUMIN/GLOBULIN RATIO 0.6 (1.0-2.2); BILIRUBIN,TOTAL 0.6 mg/dL (0.2-1.0); CALCIUM 10.8 mg/dL (8.5-10.3); CREATININE 0.6 mg/dL (0.6-1.3); POTASSIUM 3.9 mmol/L (3.5-4.5); TOTAL PROTEIN 6.5 g/dL (6.4-8.9)
[2024-04-06 17:43] LABS: PLATELET ESTIMATE, MANUAL INCREASED (>450,000) (NORMAL); PLATELET MORPHOLOGY NORMAL APPEARANCE (NORMAL)
[2024-04-06 17:44] LABS: DIFFERENTIAL COMMENT MANUAL=AUTO DIFF; WBC MORPHOLOGY (MULTIPLE) 1+ SMUDGE CELLS (NORMAL)
--- NOTE | 2024-04-06 18:17 | CT Report ---
PROCEDURE: Abdomen/Pelvis WO INDICATIONS: Known kidney stone with UTI, recent nephrostomy TECHNIQUE: A CT scan of the abdomen and pelvis was performed without the use of intravenous contrast. Images we re recorded and evaluated at appropriate window settings. Reformats: coronal and sagittal. For radiat ion dose reduction, the following was used: automated exposure control, adjustment of mA and/or kV ac cording to patient size. COMPARISON: None. FINDINGS: Image quality: There is limited visualization of the pelvis secondary to artifact from hip arthroplas ty. Lower chest: Mild] effusion with superimposed opacities. Liver: No contour-deforming mass. Gallbladder: Removed. Biliary tree: No intrahepatic or extrahepatic dilation, accounting for age. Spleen: No splenomegaly. Pancreas: No pancreatic ductal dilation. Adrenals: No adrenal nodule. Kidneys and ureters: Left ureterovesicular stent with moderate hydronephrosis. Large extrarenal pelvi s. Calcification is present in the distal ureter approximately 3 mm. No priors. Stomach, bowel and peritoneum: No gastric or small bowel dilation. No abnormal wall thickening. No pa thologic free fluid. Lymph nodes: No central or retroperitoneal adenopathy. Vessels: No infrarenal aortic aneurysm. Reproductive organs: Unremarkable. Bladder: Bladder wall thickness is normal, accounting for underdistention. No calcified bladder stone s. Pelvic lymph nodes: No adenopathy by size criteria. Bones: No aggressive osseous abnormality. Scoliotic curvature is present with multilevel degenerative changes. Other: No significant ventral or inguinal hernia. IMPRESSION: Mild right effusion with superimposed dependent changes suggestive of atelectasis. Developing areas o f underlying pneumonia cannot be definitively excluded. Moderate left hydronephrosis with left ureteral stent dens and 3 mm distal ureteral calculus. Reviewed by: Isabela Link MD on 04/06/2024 6:16 PM PDT Approved by: Isabela Link MD on 04/06/2024 6:16 PM PDT Station ID: [id number]
[2024-04-06] MEDS: cefTRIAXone 1 GM VIAL IVP STA (18:18)
[2024-04-06] MEDS: SODIUM CHLORIDE 0.9% 1,000 ML IV STA (18:19)
[2024-04-07 22:03] VITALS: BP 115/70; O2SAT 95
== END 2024-04-06 19:29 | disposition home or self-care (01) ==
LOC: EDUNIT# → ED 16:18
DX: N39.0 Urinary tract infection, site not specified (principal); D72.829 Elevated white blood cell count, unspecified; Z96.0 Presence of urogenital implants; I10 Essential (primary) hypertension; E78.00 Pure hypercholesterolemia, unspecified; I25.10 Atherosclerotic heart disease of native coronary artery without angina pectoris; I48.91 Unspecified atrial fibrillation; Z79.01 Long term (current) use of anticoagulants; Z79.899 Other long term (current) drug therapy; Z87.442 Personal history of urinary calculi
CPT/HCPCS: 36415; 51798; 74176; 80053; 81001; 83605; 85025; 85610; 87040; 87077; 87086; 87154; 87181; 96374; 96375; 99284; P9612; 51701; 81003

== ENCOUNTER 2024-04-06 19:27 | Outpatient (CLI) | payer MEDICARE, OTHER | END 2024-04-06 19:28 | LOC: EMS 19:27 | PROVIDERS: ATTEND Emergency Medicine | DX: N39.0 Urinary tract infection, site not specified (principal); Z74.01 Bed confinement status | CPT/HCPCS: A0425; A0428 ==

== ENCOUNTER 2024-04-07 16:44 | Outpatient (CLI) | payer MEDICARE, OTHER | END 2024-04-07 16:45 | disposition critical access hospital (66) | LOC: EMS 16:44 | DX: B99.9 Unspecified infectious disease (principal) | CPT/HCPCS: A0425; A0429 ==

== ENCOUNTER 2024-04-07 16:50 | Inpatient (IN) | payer MEDICARE, OTHER ==
--- NOTE | 2024-04-07 17:30 | ED Physician Documentation ---
History of Present Illness - Stated complaint Stated Complaint: POSITIVE BLOOD CULTURE - Chief complaint Chief Complaint: General - History obtained from History obtained from: Patient, Family, EMS - History of Present Illness Timing: Today Pain level max: 0 Pain level now: 0 - Additonal information Additional information: 78-year-old male was seen here yesterday, diagnosed with a UTI. Today had a positive blood culture. He was told to return to the emergency department. Before he arrived in the emergency department with EMS, the PCR resulted coag negative staph. Patient has a past medical history of coronary artery disease, atrial fibrillation, hypertension, hyperlipidemia. Also reportedly has a h istory of bladder cancer, possible lung cancer. His states that she has dementia but believes that he has some dementia as well. She states that his bladder cancer is treated at [facility]. He does not know if he has had any fevers or chills. His white blood cell count was 22,000 yesterday with a normal lactate. Review of Systems Unable to obtain: Other (Poor historian) PD PAST MEDICAL HISTORY - Past Medical History Cardiovascular: Hypertension, High cholesterol, Coronary artery disease, Atrial fibrillation, Arrhythmia Respiratory: None Neuro: None Endocrine/Autoimmune: None GI: GERD : None HEENT: Other Psych: None Musculoskeletal: Osteoarthritis, Chronic back pain Derm: None - Past Surgical History Past Surgical History: Yes General: Cholecystectomy, Colonoscopy, EGD Ortho: Hip replacement Cardiovascular: Coronary stent Derm: Skin cancer surgery - Present Medications Home Medications: Ambulatory Orders Medication Instructions Recorded Confirmed Atorvastatin [Lipitor] 40 mg ORAL DAILY PM 04/03/17 03/11/20 Metoprolol Tartrate 75 mg PO BID 04/03/17 03/11/20 lisinopriL [Lisinopril] 20 mg PO DAILY 04/03/17 03/11/20 Apixaban [Eliquis] 5 mg PO BID 03/11/20 03/11/20 Aspirin [Aspirin EC] 81 mg PO DAILY PM 03/11/20 03/11/20 B6/Levomefolate/B12/Ala/If 1 each PO DAILY 03/11/20 03/11/20 [Abatrex with Ala Tablet] Cholecalciferol (Vitamin D3) 2,000 unit PO DAILY 03/11/20 03/11/20 [Vitamin D] Magnesium Oxide [Magnesium] 800 mg PO DAILY 03/11/20 03/11/20 Sotalol [Betapace] 80 mg PO BID 03/11/20 03/11/20 Cefdinir 300 mg PO BID #20 cap 04/06/24 - Allergies Allergies/Adverse Reactions: Allergies Allergy/AdvReac Type Severity Reaction Status Date / Time amiodarone Allergy Dizziness Verified 04/07/24 16:54 - Social History Does the pt smoke?: No Smoking Status: Never smoker Does the pt drink ETOH?: No Does the pt have substance abuse?: No - Immunizations Immunizations are current?: Yes - POLST Patient has POLST: No PD ED PE NORMAL - Vitals Vital signs reviewed: Yes - General General: No acute distress, Well developed/nourished, Other (Alert, oriented to person and place, not to time) - HEENT HEENT: PERRL, Moist mucous membranes, Pharynx benign - Neck Neck: Supple, no meningeal sign - Cardiac Cardiac: RRR - Respiratory Respiratory: No respiratory distress, Clear bilaterally - Abdomen Abdomen: Soft, Non tender, Non distended - Derm Derm: Warm and dry - Extremities Extremities: No edema - Neuro Neuro: show girl 2-12 intact, No motor deficit, No sensory deficit, Normal speech Eye Opening: Spontaneous Motor: Obeys Commands Verbal: Confused GCS Score: 14 Results - Vitals Vitals: Vital Signs - 24 hr 04/07/24 16:54 Temperature 36.9 C Heart Rate 95 Respiratory 18 Rate Blood Pressure 112/68 O2 Saturation 99 Oxygen O2 Source Room air - Labs Labs: Laboratory Tests 04/07/24 04/07/24 04/07/24 17:23 17:23 17:29 WBC 19.9 H RBC 3.55 L Hgb 8.9 L Hct 31.2 L MCV 87.9 MCH 25.1 L MCHC 28.5 L RDW 17.8 H Plt Count 517 H MPV 9.2 Neut # (Auto) 17.2 H Lymph # (Auto) 1.3 L [place] # (Auto) 1.0 Eos # (Auto) 0.3 Baso # (Auto) 0.1 Absolute Nucleated RBC 0.00 Nucleated RBC % 0.0 Manual Slide Review Indicated Platelet Estimate INCREASED (>450,000) Platelet Morphology NORMAL APPEARANCE RBC Morph Micro Appear 1+ MICROCYTOSIS Sodium 138 Potassium 3.9 Chloride 102 Carbon Dioxide 30 Anion Gap 6.0 BUN 20 Creatinine 0.5 L Estimated GFR (MDRD) 160 Glucose 142 H Lactic Acid 2.2 Calcium 10.3 Total Bilirubin 0.4 AST 23 ALT 19 Alkaline Phosphatase 112 Total Protein 5.8 L Albumin 2.3 L Globulin 3.5 Albumin/Globulin Ratio 0.7 L Lipase 19 PD Medical Decision Making - ED course Complexity details: reviewed results, re-evaluated patient, considered differential, d/w patient, d/w family, d/w computer systems consultant ED course: 78-year-old male with a positive blood culture after being seen here last night. White count was 22,000. He is afebrile today, white blood cell count is 19,900. Lactate increased from 1.4-2.2. While in the emergency department a second blood culture returned positive as well. He does have a left-sided ureteral stent with moderate hydronephrosis. Discussed the case with Dr. Barrios, urology, he will follow along with the patient as needed. He states that if needed he can swap out the left-sided ureteral stent. Recommends IV antibiotics and admit to medicine. Will consult to the tele-hospitalist. Discussed the case with the tele-hospitalist who graciously accepts. Departure - Departure Disposition: ED Place in Observation Clinical Impression: Ureteral stent present, Bacteremia UTI (urinary tract infection) Qualifiers: Urinary tract infection type: acute cystitis Hematuria presence: without hematuria Qualified Code(s): N30.00 - Acute cystitis without hematuria Leukocytosis Qualifiers: Leukocytosis type: unspecified Qualified Code(s): D72.829 - Elevated white blood cell count, unspecified Condition: Stable Discharge Date/Time: 04/07/24 21:23
[2024-04-07 17:36] LABS: BASOPHILS # (AUTO) 0.1 10^3/uL (0.0-0.1); BASOPHILS % (AUTO) 0.3 %; EOSINOPHILS # (AUTO) 0.3 10^3/uL (0.0-0.7); EOSINOPHILS % (AUTO) 1.3 %; HCT - HEMATOCRIT 31.2 % (42.0-52.0); HGB - HEMOGLOBIN 8.9 g/dL (14.0-18.0); LYMPHOCYTES # (AUTO) 1.3 10^3/uL (1.5-3.5); LYMPHOCYTES % (AUTO) 6.5 %; MEAN CORPUSCULAR HEMOGLOBIN 25.1 pg (27.0-31.0); MEAN CORPUSCULAR HGB CONC 28.5 g/dL (32.0-36.0); MEAN CORPUSCULAR VOLUME 87.9 fL (80.0-94.0); MEAN PLATELET VOLUME 9.2 fL (7.4-11.4); MONOCYTES % (AUTO) 4.9 %; NEUTROPHILS # (AUTO) 17.2 10^3/uL (1.5-6.6); NEUTROPHILS % (AUTO) 86.4 %; PLT - PLATELET COUNT 517 10^3/uL (130-450); RED BLOOD COUNT 3.55 10^6/uL (4.70-6.10); RED CELL DISTRIBUTION WIDTH 17.8 % (12.0-15.0); WHITE BLOOD COUNT 19.9 x10^3/uL (4.8-10.8)
[2024-04-07 17:46] LABS: SLIDE REVIEW? Indicated
[2024-04-07 17:56] LABS: ALBUMIN 2.3 g/dL (3.2-5.5); ALBUMIN/GLOBULIN RATIO 0.7 (1.0-2.2); BILIRUBIN,TOTAL 0.4 mg/dL (0.2-1.0); CALCIUM 10.3 mg/dL (8.5-10.3); CREATININE 0.5 mg/dL (0.6-1.3); POTASSIUM 3.9 mmol/L (3.5-4.5); TOTAL PROTEIN 5.8 g/dL (6.4-8.9)
[2024-04-07 17:58] LABS: PLATELET ESTIMATE, MANUAL INCREASED (>450,000) (NORMAL); PLATELET MORPHOLOGY NORMAL APPEARANCE (NORMAL)
[2024-04-07] MEDS: cefTRIAXone 1 GM VIAL IVP STA (19:22)
--- NOTE | 2024-04-07 20:22 | HISTORY & PHYSICAL EXAMINATION ---
Chief Complaint - Chief Complaint Chief Complaint: positive blood culture History of Present Illness - Admitted From Admitted From:: retirement - History Obtained From Records Reviewed: chart review History obtained from: patient, ER staff, chart review Exam Limitations: telemedicine - History of Present Illness HPI Comment/Other: Mr Godoy is a 78 yo M with history of HTN, HLD, CAD with hx PCI, paroxysmal A fib on Eliquis. He presented to the ER yesterday with complaints of painless hematuria, work up revealed leukocytosis WBC 22 (had WBC 26 a few days prior), positive UA, treated with IV ceftriaxone. He has recent history of nephrolithiasis and status post L ureteral stent (follows with urology in [place]). CT abd 04/06 did not demonstrate any abnormalities related to the stent. Blood culture today returned positive for gram positive cocci (1 site) and patient was asked to return to the ER - within that time cultures showed coag neg staph. Urology recommends admission to monitor for fevers, etc. Noted second site now also GPC positive. Patient denies any fevers, chills, chest pain, cough, shortness of breath, abd pain, n/v. He has chronic low back pain which is unchanged. He denies dysuria, but he has been having hematuria for about a week - he states that this is not new, he has a history of intermittent hematuria. Reports taking home medications as prescribed, including Eliquis BID. History - Past Medical History Cardiovascular: reports: Hypertension, High cholesterol, Coronary artery disease, Atrial fibrillation, Arrhythmia Respiratory: reports: None Neuro: reports: None Endocrine/Autoimmune: reports: None GI: reports: GERD : reports: None HEENT: reports: Other Psych: reports: None Musculoskeletal: reports: Osteoarthritis, Chronic back pain Derm: reports: None MRSA Hx?: No - Past Surgical History General: reports: Cholecystectomy, Colonoscopy, EGD Ortho: reports: Hip replacement Cardiovascular: reports: Coronary stent Derm: reports: Skin cancer surgery - POLST Patient has POLST: No Meds/Allgy - Home Medications Home Medications: Ambulatory Orders Medication Instructions Recorded Confirmed Atorvastatin [Lipitor] 40 mg ORAL DAILY PM 04/03/17 03/11/20 Metoprolol Tartrate 75 mg PO BID 04/03/17 03/11/20 lisinopriL [Lisinopril] 20 mg PO DAILY 04/03/17 03/11/20 Apixaban [Eliquis] 5 mg PO BID 03/11/20 03/11/20 Aspirin [Aspirin EC] 81 mg PO DAILY PM 03/11/20 03/11/20 B6/Levomefolate/B12/Ala/If 1 each PO DAILY 03/11/20 03/11/20 [Abatrex with Ala Tablet] Cholecalciferol (Vitamin D3) 2,000 unit PO DAILY 03/11/20 03/11/20 [Vitamin D] Magnesium Oxide [Magnesium] 800 mg PO DAILY 03/11/20 03/11/20 Sotalol [Betapace] 80 mg PO BID 03/11/20 03/11/20 Cefdinir 300 mg PO BID #20 cap 04/06/24 - Allergies Allergies/Adverse Reactions: Allergies Allergy/AdvReac Type Severity Reaction Status Date / Time amiodarone Allergy Dizziness Verified 04/07/24 16:54 Review of Systems - Constitutional Constitutional: reports: Malaise. denies: Fatigue, Fever, Chills, Weakness, Poor appetite - Cardiovascular Cariovascular: denies: Palpitations, Chest pain, Edema - Respiratory Respiratory: denies: Cough, Sputum production - Gastrointestinal Gastrointestinal: denies: Abdominal pain, Constipation, Diarrhea, Nausea, Vomiting - Genitourinary Genitourinary: reports: Hematuria (denies presence of blood clots). denies: Dysuria, Frequency - Integumentary Integumentary: denies: Rash, Pruritis - Neurological Neurological: denies: General weakness, Focal weakness, Headache, Dizziness Exam - Vital Signs Reviewed Vital Signs: Yes Vital Signs: Vital Signs x48h Temp Pulse Resp BP Pulse Ox 04/07/24 16:54 36.9 C 95 18 112/68 99 - Physical Exam General Appearance: positive: No acute distress, Alert Respiratory: positive: No respiratory distress Cardiovascular: negative: Tachycardia Skin: positive: Color nml, No rash Neurologic/Psychiatric: positive: Oriented x3, Mood/affect nml. negative: Slurred/abnml speech Conclusion/Plan - Lab Results Lab results reviewed: Yes Fish Bones: 04/07/24 17:23 04/07/24 17:23 - Diagnostic Imaging Results Diagnostic Imaging Results: positive: Final report reviewed - Other Other Results/Comments: Urinary tract infection, complicated with L ureteral stent Gram positive cocci bacteremia -Port site staph epi, could be contaminate although unclear at this time because now second site also + GPC and urine culture + GPC -He has received IV ceftriaxone -Add IV vancomycin for now pending sensitivities -Consider ID consult pending cx/sensitivities -Repeat blood cultures ordered in ER, follow up Hematuria -In setting of UTI and recent L ureteral stent -Urology is aware -Hgb stable -Continue to monitor closely Chronic medical problems: HTN, continue lisinopril HLD, continue statin Paroxysmal A fib on Eliquis, continue (unclear if patient is taking metoprolol or sotalol - pharmacy alert requested when confirmed) DNR (verified with patient - he states formal paperwork for DNR is on file at [facility]) DVT ppx: Milvia
[2024-04-07] MEDS ORDERED: ONDANSETRON 4 MG/2 ML VIAL IVP PRN (20:55)
[2024-04-07] MEDS: ATORVASTATIN 10 MG TABLET PO SCH (22:31)
[2024-04-07] MEDS: APIXABAN 5 MG TABLET PO SCH (22:31)
[2024-04-07] MEDS: VANCOMYCIN INJ 1.25 GM in SODIUM CHLORIDE 0.9% 250 ML IV ONE (23:21)
[2024-04-07] MEDS: ASPIRIN EC 81 MG TABLET PO SCH (23:38)
[2024-04-08] MEDS: SODIUM CHLORIDE FLUSH 0.9% 10 ML SYRINGE IVP SCH (00:26)
[2024-04-08] MEDS: ACETAMINOPHEN 325 MG TABLET PO PRN (00:26)
[2024-04-08 05:47] LABS: HCT - HEMATOCRIT 30.9 % (42.0-52.0); MEAN CORPUSCULAR HEMOGLOBIN 25.4 pg (27.0-31.0); MEAN CORPUSCULAR HGB CONC 29.1 g/dL (32.0-36.0); MEAN PLATELET VOLUME 8.7 fL (7.4-11.4); RED BLOOD COUNT 3.55 10^6/uL (4.70-6.10); RED CELL DISTRIBUTION WIDTH 17.9 % (12.0-15.0); WHITE BLOOD COUNT 17.7 x10^3/uL (4.8-10.8)
[2024-04-08 06:02] LABS: CALCIUM 10.2 mg/dL (8.5-10.3); CREATININE 0.5 mg/dL (0.6-1.3); MAGNESIUM 1.5 mg/dL (1.7-2.3); POTASSIUM 3.6 mmol/L (3.5-4.5)
--- NOTE | 2024-04-08 07:38 | PHARMACY PROGRESS NOTE ---
- Therapy Status Therapy status: Awaiting steady state Basis for treatment: Empirical Treatment indication: UTI bacteremia Trough goal: AUC 400-600 Concurrent antibiotics: CTX 1 g received in ED - Monitoring and Recommendation Clinical response to treatment: Lab Results 04/07/24 17:23 BUN 20 Creatinine 0.5 L Estimated GFR (MDRD) 160 Monitoring plan: Daily serum creatinine Areas for additional monitoring: IV to PO when appropriate, Therapy de- escalation based on culture results Pharmacy recommendation: Continue current regime (Initiate maintenance dose of 1 g IV q24h for estimated AUC ~440)
[2024-04-08] MEDS: HYDROcod/ACETAM 5/325 MG TABLET PO PRN (08:53)
[2024-04-08] MEDS: lisinopriL 20 MG TABLET PO SCH (08:53)
[2024-04-08] MEDS: VANCOMYCIN INJ 1 GM in SODIUM CHLORIDE 0.9% 250 ML IV SCH (10:58)
--- NOTE | 2024-04-08 16:59 | PROVIDER PROGRESS NOTE ---
Assessment/Plan - Problem List (1) MRSA bacteremia Assessment/Plan: Mr Godoy has had 3 blood cultures drawn on April 06, 2024. 2 sets of blood cultures were taken from his right port and 1 set of blood cultures was taken from his left arm. All the blood cultures are growing gram-positive cocci in clusters and PCR is positive for Staphylococcus epidermidis with MEC A/C gene. Urine culture is also growing Staphylococcus epidermidis. Plan: Continue treatment with vancomycin intravenously 1 g twice daily and await sensitivities. (2)Urinary Tract Infection Assessment/Plan: Patient reportedly had a left ureteral stent placed by urology in [place] in late March. His urologist is Dr. Jaime Winchester ([phone]). The staff and his urine and blood may be related to his recent procedure and also possibly his port. (3)Hypertension Assessment/Plan: Continue lisinopril (4)Atrial Fibrillation Assessment/Plan: Continue apixaban during hospitalizaton though apixaban will be head tonight due to hematuria (5)Hematuria Assessment/Plan: Continue to monitor. Discontinue aspirin and hold apixaban for 12-24 hours. (6) Bladder Cancer Assessment/Plan: Patient reportedly has a diagnosis of bladder cancer and possible lung cancer. We have no supporting documentation at this time. He reports his oncologist is Dr. Gonzalez in [facility]. - Current Meds Current Meds: Current Medications Generic Name Dose Route Start Last Admin Trade Name Freq PRN Reason Stop Dose Admin Acetaminophen 650 mg 04/07/24 20:55 04/08/24 00:26 Acetaminophen 325 Mg Tablet PO 650 mg Q4HR PRN Administration Pain 1 to 4, or Fever Hydrocodone Bitart/Acetaminophen 1 tab 04/08/24 08:38 04/08/24 13:51 Hydrocod/Acetam 5/325 Mg Tablet PO 1 tab Q4HR PRN Administration Moderate Pain (Level 4-6) Apixaban 5 mg 04/07/24 21:00 04/08/24 10:58 Apixaban 5 Mg Tablet PO 5 mg BID THERESA Administration Aspirin 81 mg 04/07/24 21:00 04/07/24 23:38 Aspirin Ec 81 Mg Tablet PO Not Given HS THERESA Vancomycin HCl 1 gm/ Sodium 250 mls @ 167 mls/hr 04/08/24 11:00 04/08/24 14:33 Chloride IV Infused Q12H THERESA Infusion Lisinopril 20 mg 04/08/24 09:00 04/08/24 08:53 Lisinopril 20 Mg Tablet PO 20 mg DAILY THERESA Administration Sodium Chloride 10 ml 04/08/24 01:00 04/08/24 15:51 Sodium Chloride Flush 0.9% 10 Ml Syringe IVP 10 ml 0100,0900,1700 THERESA Administration - Lab Result Fish Bone Diagrams: 04/08/24 05:41 04/08/24 05:41 - Additional Planning My Orders: My Active Orders 04/08/24 08:38 HYDROcod/ACETAM 5/325 [[place] 5/325] 1 tab PO Q4HR PRN 04/08/24 11:00 Vancomycin Inj [Vancomycin] 1 gm Sodium Chloride 0.9% [Normal Saline 0.9%] 250 ml IV Q12H 04/08/24 17:00 Magnesium Oxide [Mag Ox] 400 mg PO BID Subjective - Subjective Patient Reports: Other (Alert. Denies shortness of breath. Complains of intermittent chest pain. Denies abdominal pain no other complaints at this time.) Objective Vital Signs: Vital Signs - 24 hr 04/07/24 04/07/24 04/08/24 21:44 23:49 08:00 Temperature 36.7 C 36.7 C 36.5 C Heart Rate [ 84 95 92 Brachial] Respiratory 20 18 18 Rate Blood Pressure 124/63 126/62 147/73 H [Right Brachial artery] O2 Saturation 95 95 95 04/08/24 15:35 Temperature 36.9 C Heart Rate [ 90 Brachial] Respiratory 16 Rate Blood Pressure 117/59 L [Right Brachial artery] O2 Saturation 93 Oxygen O2 Source Room air I&O (Last 24 Hrs): Intake and Output Totals x24h 04/06/24 04/07/24 04/08/24 23:59 23:59 23:59 Intake Total 0 890 Output Total 0 Balance 0 890 General: Alert, Oriented x3, No acute distress Neck: No JVD, No thyromegaly Neuro: Alert, Non Focal Cardiovascular: Other (Positive S1-S2 no extra heart sounds.) Respiratory: Other (Good air exchange in all lung stewart no wheezing or crackles.) Abdomen: Other (Soft nontender nondistended positive bowel sounds) Extremities: No cyanosis, No edema Skin: No rashes - Results Results: Laboratory Results WBC 17.7 x10^3/uL (4.8-10.8) H 04/08/24 05:41 RBC 3.55 10^6/uL (4.70-6.10) L 04/08/24 05:41 Hgb 9.0 g/dL (14.0-18.0) L 04/08/24 05:41 Hct 30.9 % (42.0-52.0) L 04/08/24 05:41 MCV 87.0 fL (80.0-94.0) 04/08/24 05:41 MCH 25.4 pg (27.0-31.0) L 04/08/24 05:41 MCHC 29.1 g/dL (32.0-36.0) L 04/08/24 05:41 RDW 17.9 % (12.0-15.0) H 04/08/24 05:41 Plt Count 444 10^3/uL (130-450) 04/08/24 05:41 MPV 8.7 fL (7.4-11.4) 04/08/24 05:41 Neut # (Auto) 17.2 10^3/uL (1.5-6.6) H 04/07/24 17:23 Lymph # (Auto) 1.3 10^3/uL (1.5-3.5) L 04/07/24 17:23 [place] # (Auto) 1.0 10^3/uL (0.0-1.0) 04/07/24 17:23 Eos # (Auto) 0.3 10^3/uL (0.0-0.7) 04/07/24 17:23 Baso # (Auto) 0.1 10^3/uL (0.0-0.1) 04/07/24 17:23 Absolute Nucleated RBC 0.00 x10^3/uL 04/07/24 17:23 Nucleated RBC % 0.0 /100WBC 04/07/24 17:23 Manual Slide Review Indicated 04/07/24 17:23 Platelet Estimate INCREASED (>450,000) (NORMAL) 04/07/24 17:23 Platelet Morphology NORMAL APPEARANCE (NORMAL) 04/07/24 17:23 RBC Morph Micro Appear 1+ ANISOCYTOSIS (NORMAL) 1+ MICROCYTOSIS (NORMAL) 04/07/24 17:23 RBC Morph Micro Appear 1+ ANISOCYTOSIS (NORMAL) 1+ MICROCYTOSIS (NORMAL) 04/07/24 17:23 Sodium 138 mmol/L (135-145) 04/08/24 05:41 Potassium 3.6 mmol/L (3.5-4.5) 04/08/24 05:41 Chloride 103 mmol/L (101-111) 04/08/24 05:41 Carbon Dioxide 32 mmol/L (21-32) 04/08/24 05:41 Anion Gap 3.0 (6-13) L 04/08/24 05:41 BUN 17 mg/dL (6-20) 04/08/24 05:41 Creatinine 0.5 mg/dL (0.6-1.3) L 04/08/24 05:41 Estimated GFR (MDRD) 160 (>89) 04/08/24 05:41 Glucose 106 mg/dL (74-104) H 04/08/24 05:41 Lactic Acid 2.2 mmol/L (0.5-2.2) 04/07/24 17:29 Calcium 10.2 mg/dL (8.5-10.3) 04/08/24 05:41 Magnesium 1.5 mg/dL (1.7-2.3) L 04/08/24 05:41 Total Bilirubin 0.4 mg/dL (0.2-1.0) 04/07/24 17:23 AST 23 IU/L (10-42) 04/07/24 17:23 ALT 19 IU/L (10-60) 04/07/24 17:23 Alkaline Phosphatase 112 IU/L (42-121) 04/07/24 17:23 Total Protein 5.8 g/dL (6.4-8.9) L 04/07/24 17:23 Albumin 2.3 g/dL (3.2-5.5) L 04/07/24 17:23 Globulin 3.5 g/dL (2.1-4.2) 04/07/24 17:23 Albumin/Globulin Ratio 0.7 (1.0-2.2) L 04/07/24 17:23 Lipase 19 U/L (11-82) 04/07/24 17:23 Nasal Screen MRSA (PCR) NEGATIVE (NEGATIVE) 04/07/24 23:40
[2024-04-08] MEDS: MAGNESIUM OXIDE 400 MG TABLET PO SCH (17:46)
[2024-04-08] MEDS: ATORVASTATIN 40 MG TABLET PO SCH (20:47)
[2024-04-08] MEDS ORDERED: VANCOMYCIN INJ 1 GM in SODIUM CHLORIDE 0.9% 250 ML IV SCH (23:00)
[2024-04-09 05:33] LABS: HCT - HEMATOCRIT 31.4 % (42.0-52.0); HGB - HEMOGLOBIN 9.2 g/dL (14.0-18.0); MEAN CORPUSCULAR HEMOGLOBIN 25.8 pg (27.0-31.0); MEAN CORPUSCULAR HGB CONC 29.3 g/dL (32.0-36.0); MEAN CORPUSCULAR VOLUME 88.2 fL (80.0-94.0); MEAN PLATELET VOLUME 8.8 fL (7.4-11.4); RED BLOOD COUNT 3.56 10^6/uL (4.70-6.10); RED CELL DISTRIBUTION WIDTH 17.9 % (12.0-15.0); WHITE BLOOD COUNT 18.1 x10^3/uL (4.8-10.8)
[2024-04-09 07:46] LABS: CALCIUM 9.8 mg/dL (8.5-10.3); CREATININE 0.5 mg/dL (0.6-1.3); MAGNESIUM 1.5 mg/dL (1.7-2.3); PHOSPHORUS 3.3 mg/dL (2.5-5.0); POTASSIUM 3.5 mmol/L (3.5-4.5)
--- NOTE | 2024-04-09 07:48 | PROVIDER PROGRESS NOTE ---
Assessment/Plan - Problem List (1) Bacteremia due to methicillin resistant Staphylococcus epidermidis Assessment/Plan: Mr Godoy has had 3 blood cultures drawn on April 06, 2024. 2 sets of blood cultures were taken from his right port and 1 set of blood cultures was taken from his left arm. All the blood cultures are growing gram-positive cocci in clusters and PCR is positive for Staphylococcus epidermidis with MEC A/C gene. Urine culture is also growing Staphylococcus epidermidis. Plan: Continue treatment with vancomycin intravenously 1 g twice daily and await sensitivities. Echocardiogram ordered Consult placed to remove port-a-cath Repeat blood culture daily (2)Urinary Tract Infection Assessment/Plan: Patient reportedly had a left ureteral stent placed by urology in [place] in late March. His urologist is Dr. Jaime Winchester ([phone]). The staff and his urine and blood may be related to his recent procedure and also possibly his p ort. (3)Hypertension Assessment/Plan: Lisinopril discontinued due low blood pressure. Continue to monitor. (4)Atrial Fibrillation Assessment/Plan: Hold apixaban for removal of tunneled catheter. (5)Hematuria Assessment/Plan: Continue to monitor. Discontinue aspirin and hold apixaban for 12-24 hours. (6) Bladder Cancer Assessment/Plan: Patient reportedly has a diagnosis of bladder cancer and possible lung cancer. We have no supporting documentation at this time. He reports his oncologist is Dr. Gonzalez in [facility]. - Current Meds Current Meds: Current Medications Generic Name Dose Route Start Last Admin Trade Name Freq PRN Reason Stop Dose Admin Acetaminophen 650 mg 04/07/24 20:55 04/08/24 00:26 Acetaminophen 325 Mg Tablet PO 650 mg Q4HR PRN Administration Pain 1 to 4, or Fever Hydrocodone Bitart/Acetaminophen 1 tab 04/08/24 08:38 04/09/24 06:33 Hydrocod/Acetam 5/325 Mg Tablet PO 1 tab Q4HR PRN Administration Moderate Pain (Level 4-6) Atorvastatin Calcium 40 mg 04/08/24 21:00 04/08/24 20:47 Atorvastatin 40 Mg Tablet PO 40 mg QPM THERESA Administration Vancomycin HCl 1 gm/ Sodium 250 mls @ 167 mls/hr 04/08/24 11:00 04/09/24 00:45 Chloride IV Infused Q12H THERESA Infusion Lisinopril 20 mg 04/08/24 09:00 04/08/24 08:53 Lisinopril 20 Mg Tablet PO 20 mg DAILY THERESA Administration Magnesium Oxide 400 mg 04/08/24 17:00 04/08/24 20:47 Magnesium Oxide 400 Mg Tablet PO 04/10/24 21:01 400 mg BID THERESA Administration Sodium Chloride 10 ml 04/08/24 01:00 04/08/24 22:57 Sodium Chloride Flush 0.9% 10 Ml Syringe IVP 10 ml 0100,0900,1700 THERESA Administration - Lab Result Fish Bone Diagrams: 04/09/24 05:15 04/09/24 05:42 - Additional Planning My Orders: My Active Orders 04/08/24 08:38 HYDROcod/ACETAM 5/325 [[place] 5/325] 1 tab PO Q4HR PRN 04/08/24 11:00 Vancomycin Inj [Vancomycin] 1 gm Sodium Chloride 0.9% [Normal Saline 0.9%] 250 ml IV Q12H 04/08/24 17:00 Magnesium Oxide [Mag Ox] 400 mg PO BID Subjective - Subjective Patient Reports: Other (Alert. Continues to complain of intermittent chest pain. He denies shortness of breath and abdominal pain. He has no other complaints at this time.) Objective Vital Signs: Vital Signs - 24 hr 04/08/24 04/08/24 04/08/24 08:00 15:35 23:48 Temperature 36.5 C 36.9 C 36.9 C Heart Rate [ 92 90 106 H Brachial] Respiratory 18 16 18 Rate Blood Pressure 147/73 H 117/59 L 107/71 [Right Brachial artery] O2 Saturation 95 93 93 Oxygen O2 Source Room air I&O (Last 24 Hrs): Intake and Output Totals x24h 04/07/24 04/08/24 04/09/24 23:59 23:59 23:59 Intake Total 0 1140 250 Output Total 0 Balance 0 1140 250 General: Alert, Oriented x3, No acute distress HEENT: Atraumatic Neuro: Non Focal Cardiovascular: Other (Positive S1-S2 no extra heart sounds.) Respiratory: Other (Good air exchange in all lung stewart no wheezing no crackles.) Abdomen: Other (Soft nontender nondistended positive bowel sounds) Extremities: No cyanosis, No edema Skin: No rashes - Results Results: Laboratory Results WBC 18.1 x10^3/uL (4.8-10.8) H 04/09/24 05:15 RBC 3.56 10^6/uL (4.70-6.10) L 04/09/24 05:15 Hgb 9.2 g/dL (14.0-18.0) L 04/09/24 05:15 Hct 31.4 % (42.0-52.0) L 04/09/24 05:15 MCV 88.2 fL (80.0-94.0) 04/09/24 05:15 MCH 25.8 pg (27.0-31.0) L 04/09/24 05:15 MCHC 29.3 g/dL (32.0-36.0) L 04/09/24 05:15 RDW 17.9 % (12.0-15.0) H 04/09/24 05:15 Plt Count 482 10^3/uL (130-450) H 04/09/24 05:15 MPV 8.8 fL (7.4-11.4) 04/09/24 05:15 Neut # (Auto) 17.2 10^3/uL (1.5-6.6) H 04/07/24 17:23 Lymph # (Auto) 1.3 10^3/uL (1.5-3.5) L 04/07/24 17:23 [place] # (Auto) 1.0 10^3/uL (0.0-1.0) 04/07/24 17:23 Eos # (Auto) 0.3 10^3/uL (0.0-0.7) 04/07/24 17:23 Baso # (Auto) 0.1 10^3/uL (0.0-0.1) 04/07/24 17:23 Absolute Nucleated RBC 0.00 x10^3/uL 04/07/24 17:23 Nucleated RBC % 0.0 /100WBC 04/07/24 17:23 Manual Slide Review Indicated 04/07/24 17:23 Platelet Estimate INCREASED (>450,000) (NORMAL) 04/07/24 17:23 Platelet Morphology NORMAL APPEARANCE (NORMAL) 04/07/24 17:23 RBC Morph Micro Appear 1+ ANISOCYTOSIS (NORMAL) 1+ MICROCYTOSIS (NORMAL) 04/07/24 17:23 RBC Morph Micro Appear 1+ ANISOCYTOSIS (NORMAL) 1+ MICROCYTOSIS (NORMAL) 04/07/24 17:23 Sodium 141 mmol/L (135-145) 04/09/24 05:42 Potassium 3.5 mmol/L (3.5-4.5) 04/09/24 05:42 Chloride 104 mmol/L (101-111) 04/09/24 05:42 Carbon Dioxide 33 mmol/L (21-32) H 04/09/24 05:42 Anion Gap 4.0 (6-13) L 04/09/24 05:42 BUN 13 mg/dL (6-20) 04/09/24 05:42 Creatinine 0.5 mg/dL (0.6-1.3) L 04/09/24 05:42 Estimated GFR (MDRD) 160 (>89) 04/09/24 05:42 Glucose 100 mg/dL (74-104) 04/09/24 05:42 Lactic Acid 2.2 mmol/L (0.5-2.2) 04/07/24 17:29 Calcium 9.8 mg/dL (8.5-10.3) 04/09/24 05:42 Phosphorus 3.3 mg/dL (2.5-5.0) 04/09/24 05:42 Magnesium 1.5 mg/dL (1.7-2.3) L 04/09/24 05:42 Total Bilirubin 0.4 mg/dL (0.2-1.0) 04/07/24 17:23 AST 23 IU/L (10-42) 04/07/24 17:23 ALT 19 IU/L (10-60) 04/07/24 17:23 Alkaline Phosphatase 112 IU/L (42-121) 04/07/24 17:23 Total Protein 5.8 g/dL (6.4-8.9) L 04/07/24 17:23 Albumin 2.3 g/dL (3.2-5.5) L 04/07/24 17:23 Globulin 3.5 g/dL (2.1-4.2) 04/07/24 17:23 Albumin/Globulin Ratio 0.7 (1.0-2.2) L 04/07/24 17:23 Lipase 19 U/L (11-82) 04/07/24 17:23 Nasal Screen MRSA (PCR) NEGATIVE (NEGATIVE) 04/07/24 23:40
--- NOTE | 2024-04-09 09:11 | PROVIDER PROGRESS NOTE ---
Assessment/Plan - Problem List (1) Bacteremia due to methicillin resistant Staphylococcus epidermidis Assessment/Plan: Mr Godoy has had 3 blood cultures drawn on April 06, 2024. 2 sets of blood cultures were taken from his right port and 1 set of blood cultures was taken from his left arm. All the blood cultures are growing gram-positive cocci in clusters and PCR is positive for Staphylococcus epidermidis with MEC A/C gene. Urine culture is also growing Staphylococcus epidermidis. Plan: Continue treatment with vancomycin intravenously 1 g twice daily Echocardiogram ordered. Anticipate it will be completed on Friday. Port-a-cath removed 04/09/2024 Repeat blood cultures negative. Urine culture ordered (2)Urinary Tract Infection Assessment/Plan: Patient reportedly had a left ureteral stent placed by urology in [place] in late March. His urologist is Dr. Jaime Winchester ([phone]). The staff and his urine and blood may be related to his recent procedure and also possibly his port. Continue to monitor. Send repeat urine culture. (3)Hypertension Assessment/Plan: Metoprolol 12.5 mg bid (4)Atrial Fibrillation Assessment/Plan: Restart apixaban 5 mg twice daily. Start metoprolol at 12.5 mg twice daily. (5)Hematuria Assessment/Plan: Monitor after apixaban holiday. (6) Bladder Cancer Assessment/Plan: Patient reportedly has a diagnosis of bladder cancer and possible lung cancer. We have no supporting documentation at this time. He reports his oncologist is Dr. Gonzalez in [facility]. 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 He reports he has lost about 35 pounds since his bladder cancer diagnosis in February 2023. - Current Meds Current Meds: Current Medications Generic Name Dose Route Start Last Admin Trade Name Freq PRN Reason Stop Dose Admin Acetaminophen 650 mg 04/07/24 20:55 04/08/24 00:26 Acetaminophen 325 Mg Tablet PO 650 mg Q4HR PRN Administration Pain 1 to 4, or Fever Hydrocodone Bitart/Acetaminophen 1 tab 04/08/24 08:38 04/09/24 06:33 Hydrocod/Acetam 5/325 Mg Tablet PO 1 tab Q4HR PRN Administration Moderate Pain (Level 4-6) Atorvastatin Calcium 40 mg 04/08/24 21:00 04/08/24 20:47 Atorvastatin 40 Mg Tablet PO 40 mg QPM THERESA Administration Vancomycin HCl 1 gm/ Sodium 250 mls @ 167 mls/hr 04/08/24 11:00 04/09/24 00:45 Chloride IV Infused Q12H THERESA Infusion Lisinopril 20 mg 04/08/24 09:00 04/08/24 08:53 Lisinopril 20 Mg Tablet PO 20 mg DAILY THERESA Administration Magnesium Oxide 400 mg 04/08/24 17:00 04/08/24 20:47 Magnesium Oxide 400 Mg Tablet PO 04/10/24 21:01 400 mg BID THERESA Administration Sodium Chloride 10 ml 04/08/24 01:00 04/08/24 22:57 Sodium Chloride Flush 0.9% 10 Ml Syringe IVP 10 ml 0100,0900,1700 THERESA Administration - Lab Result Fish Bone Diagrams: 04/10/24 10:04 04/10/24 10:04 - Additional Planning My Orders: My Active Orders 04/08/24 08:38 HYDROcod/ACETAM 5/325 [[place] 5/325] 1 tab PO Q4HR PRN 04/08/24 11:00 Vancomycin Inj [Vancomycin] 1 gm Sodium Chloride 0.9% [Normal Saline 0.9%] 250 ml IV Q12H 04/08/24 17:00 Magnesium Oxide [Mag Ox] 400 mg PO BID 04/09/24 General Surgery Consult [CONS] Routine 04/09/24 08:23 Echo Transthoracic Complete [ECHO] Routine 04/09/24 08:56 Blood Culture [CULTURE, BLOOD #1] [RM] Routine Subjective - Subjective Patient Reports: Other (Alert. Denies dyspne and abdominal pain. Continues to complain of chronic chest pain. No other complaints at this time. Denies fever, chills, nausea and vomiting.) Objective Vital Signs: Vital Signs - 24 hr 04/08/24 04/08/24 15:35 23:48 Temperature 36.9 C 36.9 C Heart Rate [ 90 106 H Brachial] Respiratory 16 18 Rate Blood Pressure 117/59 L 107/71 [Right Brachial artery] O2 Saturation 93 93 Oxygen O2 Source Room air I&O (Last 24 Hrs): Intake and Output Totals x24h 04/07/24 04/08/24 04/09/24 23:59 23:59 23:59 Intake Total 0 1140 370 Output Total 0 Balance 0 1140 370 General: Alert, Oriented x3, No acute distress HEENT: Atraumatic Neck: No JVD, No thyromegaly Neuro: Alert, Non Focal Cardiovascular: Other Respiratory: Other Abdomen: No masses Extremities: No cyanosis, No edema Skin: No rashes - Results Results: Laboratory Results WBC 18.1 x10^3/uL (4.8-10.8) H 04/09/24 05:15 RBC 3.56 10^6/uL (4.70-6.10) L 04/09/24 05:15 Hgb 9.2 g/dL (14.0-18.0) L 04/09/24 05:15 Hct 31.4 % (42.0-52.0) L 04/09/24 05:15 MCV 88.2 fL (80.0-94.0) 04/09/24 05:15 MCH 25.8 pg (27.0-31.0) L 04/09/24 05:15 MCHC 29.3 g/dL (32.0-36.0) L 04/09/24 05:15 RDW 17.9 % (12.0-15.0) H 04/09/24 05:15 Plt Count 482 10^3/uL (130-450) H 04/09/24 05:15 MPV 8.8 fL (7.4-11.4) 04/09/24 05:15 Neut # (Auto) 17.2 10^3/uL (1.5-6.6) H 04/07/24 17:23 Lymph # (Auto) 1.3 10^3/uL (1.5-3.5) L 04/07/24 17:23 [place] # (Auto) 1.0 10^3/uL (0.0-1.0) 04/07/24 17:23 Eos # (Auto) 0.3 10^3/uL (0.0-0.7) 04/07/24 17:23 Baso # (Auto) 0.1 10^3/uL (0.0-0.1) 04/07/24 17:23 Absolute Nucleated RBC 0.00 x10^3/uL 04/07/24 17:23 Nucleated RBC % 0.0 /100WBC 04/07/24 17:23 Manual Slide Review Indicated 04/07/24 17:23 Platelet Estimate INCREASED (>450,000) (NORMAL) 04/07/24 17:23 Platelet Morphology NORMAL APPEARANCE (NORMAL) 04/07/24 17:23 RBC Morph Micro Appear 1+ ANISOCYTOSIS (NORMAL) 1+ MICROCYTOSIS (NORMAL) 04/07/24 17:23 RBC Morph Micro Appear 1+ ANISOCYTOSIS (NORMAL) 1+ MICROCYTOSIS (NORMAL) 04/07/24 17:23 Sodium 141 mmol/L (135-145) 04/09/24 05:42 Potassium 3.5 mmol/L (3.5-4.5) 04/09/24 05:42 Chloride 104 mmol/L (101-111) 04/09/24 05:42 Carbon Dioxide 33 mmol/L (21-32) H 04/09/24 05:42 Anion Gap 4.0 (6-13) L 04/09/24 05:42 BUN 13 mg/dL (6-20) 04/09/24 05:42 Creatinine 0.5 mg/dL (0.6-1.3) L 04/09/24 05:42 Estimated GFR (MDRD) 160 (>89) 04/09/24 05:42 Glucose 100 mg/dL (74-104) 04/09/24 05:42 Lactic Acid 2.2 mmol/L (0.5-2.2) 04/07/24 17:29 Calcium 9.8 mg/dL (8.5-10.3) 04/09/24 05:42 Phosphorus 3.3 mg/dL (2.5-5.0) 04/09/24 05:42 Magnesium 1.5 mg/dL (1.7-2.3) L 04/09/24 05:42 Total Bilirubin 0.4 mg/dL (0.2-1.0) 04/07/24 17:23 AST 23 IU/L (10-42) 04/07/24 17:23 ALT 19 IU/L (10-60) 04/07/24 17:23 Alkaline Phosphatase 112 IU/L (42-121) 04/07/24 17:23 Total Protein 5.8 g/dL (6.4-8.9) L 04/07/24 17:23 Albumin 2.3 g/dL (3.2-5.5) L 04/07/24 17:23 Globulin 3.5 g/dL (2.1-4.2) 04/07/24 17:23 Albumin/Globulin Ratio 0.7 (1.0-2.2) L 04/07/24 17:23 Lipase 19 U/L (11-82) 04/07/24 17:23 Nasal Screen MRSA (PCR) NEGATIVE (NEGATIVE) 04/07/24 23:40
--- NOTE | 2024-04-09 10:08 | ANESTHESIA ---
Pre-Anesthesia VS, & Labs - Diagnosis infected port site@L - Procedure port removal@L Vital Signs: Temp Pulse Resp BP Pulse Ox O2 Flow Rate 36.9 C 100 18 99/58 L 94 04/09/24 09:00 04/09/24 09:00 04/09/24 09:00 04/09/24 09:00 04/09/24 09:00 Height: 5 ft 8 in Weight (kg): 65 kg Body Mass Index: 21.7 BMI Classification: Normal - NPO Other Last Fluid Intake: 20% breakfast at 0800 - Lab Results Current Lab Results: Laboratory Tests 04/09/24 05:42: Sodium 141, Potassium 3.5, Chloride 104, Carbon Dioxide 33 H, Anion Gap 4.0 L, BUN 13, Creatinine 0.5 L, Estimated GFR (MDRD) 160, Glucose 100, Calcium 9.8, Phosphorus 3.3, Magnesium 1.5 L 04/09/24 05:15: WBC 18.1 H, RBC 3.56 L, Hgb 9.2 L, Hct 31.4 L, MCV 88.2, MCH 25. 8 L, MCHC 29.3 L, RDW 17.9 H, Plt Count 482 H, MPV 8.8 04/08/24 05:41: Sodium 138, Potassium 3.6, Chloride 103, Carbon Dioxide 32, Anion Gap 3.0 L, BUN 17, Creatinine 0.5 L, Estimated GFR (MDRD) 160, Glucose 106 H, Calcium 10.2, Magnesium 1.5 L 04/08/24 05:41: WBC 17.7 H, RBC 3.55 L, Hgb 9.0 L, Hct 30.9 L, MCV 87.0, MCH 25.4 L, MCHC 29.1 L, RDW 17.9 H, Plt Count 444, MPV 8.7 04/07/24 17:29: Lactic Acid 2.2 04/07/24 17:23: Sodium 138, Potassium 3.9, Chloride 102, Carbon Dioxide 30, An ion Gap 6.0, BUN 20, Creatinine 0.5 L, Estimated GFR (MDRD) 160, Glucose 142 H, Calcium 10.3, Total Bilirubin 0.4, AST 23, ALT 19, Alkaline Phosphatase 112, Total Protein 5.8 L, Albumin 2.3 L, Globulin 3.5, Albumin/Globulin Ratio 0.7 L, Lipase 19 04/07/24 17:23: WBC 19.9 H, RBC 3.55 L, Hgb 8.9 L, Hct 31.2 L, MCV 87.9, MCH 25.1 L, MCHC 28.5 L, RDW 17.8 H, Plt Count 517 H, MPV 9.2, Neut # (Auto) 17.2 H, Lymph # (Auto) 1.3 L, [place] # (Auto) 1.0, Eos # (Auto) 0.3, Baso # (Auto) 0.1, Absolute Nucleated RBC 0.00, Nucleated RBC % 0.0, Manual Slide Review Indicated, Platelet Estimate INCREASED (>450,000), Platelet Morphology NORMAL APPEARANCE, RBC Morph Micro Appear 1+ MICROCYTOSIS Lab results reviewed: Yes Fish Bones: 04/09/24 05:15 04/09/24 05:42 Home Medications and Allergies Active Medications Acetaminophen (Acetaminophen 325 Mg Tablet) 650 mg PO Q4HR PRN PRN Reason: Pain 1 to 4, or Fever Last Admin: 04/08/24 00:26 Dose: 650 mg Hydrocodone Bitart/Acetaminophen (Hydrocod/Acetam 5/325 Mg Tablet) 1 tab PO Q4HR PRN PRN Reason: Moderate Pain (Level 4-6) Last Admin: 04/09/24 06:33 Dose: 1 tab Atorvastatin Calcium (Atorvastatin 40 Mg Tablet) 40 mg PO QPM [facility] Last Admin: 04/08/24 20:47 Dose: 40 mg Vancomycin HCl 1 gm/ Sodium (Chloride) 250 mls @ 167 mls/hr IV Q12H [facility] Last Infusion: 04/09/24 00:45 Dose: Infused Lisinopril (Lisinopril 20 Mg Tablet) 20 mg PO DAILY [facility] Last Admin: 04/08/24 08:53 Dose: 20 mg Magnesium Oxide (Magnesium Oxide 400 Mg Tablet) 400 mg PO BID [facility] Stop: 04/10/24 21:01 Last Admin: 04/09/24 09:40 Dose: 400 mg Ondansetron HCl (Ondansetron 4 Mg/2 Ml Vial) 4 mg IVP Q6HR PRN PRN Reason: Nausea / Vomiting Sodium Chloride (Sodium Chloride Flush 0.9% 10 Ml Syringe) 10 ml IVP PRN PRN PRN Reason: NEEDED PER PROVIDER ORDERS Sodium Chloride (Sodium Chloride Flush 0.9% 10 Ml Syringe) 10 ml IVP 0100,0900,1700 THERESA Last Admin: 04/09/24 09:41 Dose: 10 ml Atorvastatin [Lipitor] 40 mg ORAL DAILY PM 04/03/17 Metoprolol Tartrate 75 mg PO BID 04/03/17 lisinopriL [Lisinopril] 20 mg PO DAILY 04/03/17 Apixaban [Eliquis] 5 mg PO BID 03/11/20 Aspirin [Aspirin EC] 81 mg PO DAILY PM 03/11/20 B6/Levomefolate/B12/Ala/If [Abatrex with Ala Tablet] 1 each PO DAILY 03/11/20 Cholecalciferol (Vitamin D3) [Vitamin D] 2,000 unit PO DAILY 03/11/20 Magnesium Oxide [Magnesium] 800 mg PO DAILY 03/11/20 Sotalol [Betapace] 80 mg PO BID 03/11/20 Allergies/Adverse Reactions: Allergies Allergy/AdvReac Type Severity Reaction Status Date / Time amiodarone Allergy Dizziness Verified 04/07/24 16:54 Anes History & Medical History - Anesthetic History Anesthesia Complications: reports: No previous complications Family history of Anesthesia Complications: Denies Family history of Malignant Hyperthermia: Denies - Medical History Cardiovascular: reports: Hypertension, High cholesterol, Coronary artery disease, Atrial fibrillation, Arrhythmia Pulmonary: reports: None Gastrointestinal: reports: GERD Urinary: reports: None Neuro: reports: None Musculoskeletal: reports: Osteoarthritis, Chronic back pain Endocrine/Autoimmune: reports: None Blood Disorders: reports: None Skin: reports: None Smoking Status: Never smoker - Surgical History General: reports: Cholecystectomy, Colonoscopy, EGD Cardiothoracic: reports: Coronary stent Orthopedic: reports: Hip replacement Dermatologic: reports: Skin cancer surgery Exam General: Alert, Oriented x3, Cooperative Dental: WNL Mouth Openin Fingerbreadth Neck Mobility: Normal Mallampati classification: II Thyromental Distance: 4-6 cm Respiratory: Lungs clear, Decreased breath sounds (B lower lobes) Cardiovascular: Other (AF, some c/o intermittent chest pain during stay, always resolves) Neurological: Normal speech Mental/Cognitive Status: Normal for patient, Confused (dementia dx, difficult to assess without family present.) Cognitive Status: Within normal limits, Dementia Plan Anesthesia Type: MAC Consent for Procedure(s) Verified and Reviewed: Yes Code Status: Attempt Resuscitation ASA classification: 3-Severe systemic disease Is this case an emergency?: No
[2024-04-09] MEDS: D5.45NS W/20 MEQ KCL 1,000 ML IV SCH (10:44)
[2024-04-09] MEDS: SODIUM CHLORIDE 0.9% 500 ML IV ONE (11:27)
[2024-04-09] MEDS ORDERED: MIDAZOLAM 2 MG/2 ML VIAL ONE (14:39)
[2024-04-09] MEDS ORDERED: BUPIVACAINE 0.5% PF 10 ML VIAL ONE (14:45)
[2024-04-09] MEDS ORDERED: LIDOCAINE 1%-EPI 1:100000 20 ML MDV ONE (14:45)
[2024-04-09] MEDS: LIDOCAINE 1%-EPI 1:100000 20 ML MDV SUBQ ONE (14:55)
[2024-04-09] MEDS: BUPIVACAINE 0.5% PF 10 ML VIAL SUBQ ONE (14:55)
--- NOTE | 2024-04-09 15:10 | CONSULTATION NOTE ---
Referring Provider Consult Date: 04/09/24 History of Present Illness - History Obtained From Records Reviewed: yes History obtained from: pt Exam Limitations: none - History of Present Illness HPI Comment/Other: bacteremia and concern for port line infection. consult to remove port History - Past Medical History Cardiovascular: reports: Hypertension, High cholesterol, Coronary artery disease, Atrial fibrillation, Arrhythmia Respiratory: reports: None Neuro: reports: None Endocrine/Autoimmune: reports: None GI: reports: GERD : reports: None HEENT: reports: Other Psych: reports: None Musculoskeletal: reports: Osteoarthritis, Chronic back pain Derm: reports: None MRSA Hx?: No - Past Surgical History General: reports: Cholecystectomy, Colonoscopy, EGD Ortho: reports: Hip replacement Cardiovascular: reports: Coronary stent Derm: reports: Skin cancer surgery - POLST Patient has POLST: No Meds/Allgy - Home Medications Home Medications: Ambulatory Orders Medication Instructions Recorded Confirmed Atorvastatin [Lipitor] 40 mg ORAL DAILY PM 04/03/17 03/11/20 Metoprolol Tartrate 75 mg PO BID 04/03/17 03/11/20 lisinopriL [Lisinopril] 20 mg PO DAILY 04/03/17 03/11/20 Apixaban [Eliquis] 5 mg PO BID 03/11/20 03/11/20 Aspirin [Aspirin EC] 81 mg PO DAILY PM 03/11/20 03/11/20 B6/Levomefolate/B12/Ala/If 1 each PO DAILY 03/11/20 03/11/20 [Abatrex with Ala Tablet] Cholecalciferol (Vitamin D3) 2,000 unit PO DAILY 03/11/20 03/11/20 [Vitamin D] Magnesium Oxide [Magnesium] 800 mg PO DAILY 03/11/20 03/11/20 Sotalol [Betapace] 80 mg PO BID 03/11/20 03/11/20 Cefdinir 300 mg PO BID #20 cap 04/06/24 - Allergies Allergies/Adverse Reactions: Allergies Allergy/AdvReac Type Severity Reaction Status Date / Time amiodarone Allergy Dizziness Verified 04/07/24 16:54 Exam - Vital Signs Vital Signs: Vital Signs x48h Temp Pulse Resp BP BP Pulse Ox 04/09/24 14:27 119 H 111/57 L 04/09/24 12:21 37 C 110 H 18 87/57 L 95/63 94 04/09/24 11:36 111 H 97/58 L 04/09/24 10:47 117 H 97/58 L 04/09/24 10:12 102/59 L 04/09/24 09:11 81/54 L 04/09/24 09:00 36.9 C 100 18 99/58 L 94 - Physical Exam General Appearance: positive: No acute distress, Alert Eyes Bilateral: positive: PERRL, EOMI ENT: positive: No signs of dehydration Neck: positive: No JVD Respiratory: positive: No respiratory distress Abdomen: positive: No distention Neurologic/Psychiatric: positive: Oriented x3 Comments/Other: left chest port present Conclusion/Plan - Problem List (1) Bacteremia Conclusion/Plan: concern for port line infection. recently on eliquis. plan port removal in or. parq held and consent obtained - Lab Results Lab results reviewed: Yes Fish Bones: 04/09/24 05:15 04/09/24 05:42
[2024-04-09] MEDS ORDERED: PHENYLEPHRINE HCL 0.5 MG/5 ML AMPULE ONE (15:18)
--- NOTE | 2024-04-09 15:45 | ANESTHESIA POST OP EVALUATION ---
Anesthesia Post Eval - Post Anesthesia Eval Vitals: Last Vital Signs Temp 37 C 04/09/24 12:21 Pulse 119 H 04/09/24 14:27 Resp 18 04/09/24 12:21 BP 111/57 L 04/09/24 14:27 Pulse Ox 94 04/09/24 12:21 O2 Flow Rate CV Function Including HR & BP: Stable Pain Control: Satisfactory Nausea & Vomiting: Negative Mental Status: Baseline Respiratory Status: Airway Patent Hydration Status: Satisfactory Anesthesia Complications: None
--- NOTE | 2024-04-09 15:48 | OPERATIVE REPORT ---
Operative Report - General Admit Date: 04/08/24 Procedure Date: 04/09/24 Planned Procedure: left chest port removal Pre-Op Diagnosis: bactermia and concern for port infection Procedure Performed: port removal Post Op Diagnosis: same - Procedure Note Anesthesia Technique: Local, MAC Pathology: not sent Estimated Blood Loss (mL): 0 Drain/Tube Type: Other (none) Indications: bacteremia and concern for port infection Findings: port removed intact Complications: none - Other Other Information/Narrative: The patient was properly identified brought to the operating room and placed in supine position. He was prepped and draped in a sterile fashion. Patient has been on IV antibiotics for bacteremia. Local anesthetic was given. Using cutting current cautery an incision was made directly over the port. The port was recently placed. Minimal scar tissue was present. Small Ethibond type sutures were removed. The port was removed intact. The tract going towards the left subclavian vein was closed with a [id number] 3-0 Vicryl. Hemostasis was further assured with cautery. Moist gauze followed by dry gauze and paper tape was placed. Tolerated the procedure well was brought to his hospital room and in good condition. Of note the port was removed in the operating room with use of cautery given recent Eliquis use
--- NOTE | 2024-04-09 15:55 | PHARMACY PROGRESS NOTE ---
- Best Possible Medication History Admit Date and Time: 04/08/24 9252 Processed by: Pharmacy Medications reviewed in ED?: No Medication History completed: Yes Patient Interview: Pt unable to participate Secondary Source(s): Facility MAR as ONLY source As the person ultimately responsible for medication therapy, providers are able to order a medication from an existing home medication list in [facility] via the "Reconcile Routine" prior to Confirmation of that medication by intelligence support officer. Such practice is discouraged except when the physician, in their clinical judgment, deems that a medical need exists for a medication without regard to previous use.
[2024-04-09] MEDS: MULTIVITAMIN W/MINERALS TABLET PO SCH (16:24)
[2024-04-10] MEDS: fentaNYL 12 MCG PATCH TOP SCH ×2 (00:49→08:35)
[2024-04-10] MEDS: polyethylene glycoL 3350 17 GM PACKET PO SCH (08:46)
[2024-04-10 10:14] LABS: HCT - HEMATOCRIT 29.3 % (42.0-52.0); HGB - HEMOGLOBIN 8.5 g/dL (14.0-18.0); MEAN CORPUSCULAR HEMOGLOBIN 25.6 pg (27.0-31.0); MEAN CORPUSCULAR VOLUME 88.3 fL (80.0-94.0); MEAN PLATELET VOLUME 8.5 fL (7.4-11.4); RED BLOOD COUNT 3.32 10^6/uL (4.70-6.10); WHITE BLOOD COUNT 18.5 x10^3/uL (4.8-10.8)
[2024-04-10 10:26] LABS: VANCOMYCIN,TROUGH 17.8 ug/mL
[2024-04-10 10:27] LABS: CALCIUM 9.3 mg/dL (8.5-10.3); CREATININE 0.4 mg/dL (0.6-1.3); MAGNESIUM 1.5 mg/dL (1.7-2.3); PHOSPHORUS 2.5 mg/dL (2.5-5.0); POTASSIUM 3.9 mmol/L (3.5-4.5)
[2024-04-10] MEDS: TAMSULOSIN 0.4 MG CAPSULE PO SCH (21:16)
[2024-04-10] MEDS: METOPROLOL TARTRATE 25 MG TABLET PO SCH (21:16)
[2024-04-10] MEDS: APIXABAN 5 MG TABLET PO SCH (21:17)
[2024-04-11 05:29] LABS: BASOPHILS # (AUTO) 0.1 10^3/uL (0.0-0.1); BASOPHILS % (AUTO) 0.5 %; EOSINOPHILS # (AUTO) 0.5 10^3/uL (0.0-0.7); EOSINOPHILS % (AUTO) 3.5 %; HCT - HEMATOCRIT 28.3 % (42.0-52.0); HGB - HEMOGLOBIN 8.2 g/dL (14.0-18.0); LYMPHOCYTES # (AUTO) 1.4 10^3/uL (1.5-3.5); MEAN CORPUSCULAR HEMOGLOBIN 25.5 pg (27.0-31.0); MEAN CORPUSCULAR VOLUME 87.9 fL (80.0-94.0); MEAN PLATELET VOLUME 8.9 fL (7.4-11.4); MONOCYTES # (AUTO) 0.8 10^3/uL (0.0-1.0); MONOCYTES % (AUTO) 5.4 %; NEUTROPHILS # (AUTO) 12.4 10^3/uL (1.5-6.6); NEUTROPHILS % (AUTO) 80.7 %; PLT - PLATELET COUNT 433 10^3/uL (130-450); RED BLOOD COUNT 3.22 10^6/uL (4.70-6.10); RED CELL DISTRIBUTION WIDTH 18.1 % (12.0-15.0); WHITE BLOOD COUNT 15.3 x10^3/uL (4.8-10.8)
[2024-04-11 05:43] LABS: CALCIUM 9.1 mg/dL (8.5-10.3); CREATININE 0.4 mg/dL (0.6-1.3); POTASSIUM 3.8 mmol/L (3.5-4.5)
--- NOTE | 2024-04-11 06:53 | PROVIDER PROGRESS NOTE ---
Assessment/Plan - Problem List (1) Bacteremia due to methicillin resistant Staphylococcus epidermidis Assessment/Plan: Mr Godoy has had 3 blood cultures drawn on April 06, 2024. 2 sets of blood cultures were taken from his right port and 1 set of blood cultures was taken from his left arm. All the blood cultures are growing gram-positive cocci in clusters and PCR is positive for Staphylococcus epidermidis with MEC A/C gene. Urine culture is also growing Staphylococcus epidermidis. Since he has received multiple doses of IV vancomycin, his blood cultures have been negative since April 07, 2024 and his urine culture performed on April 10, 2024 also was negative. Plan: Continue treatment with vancomycin intravenously 1 g twice daily Echocardiogram ordered. Anticipate it will be completed on Friday. Port-a-cath removed 04/09/2024 Repeat blood cultures negative. Urine culture Negative Discuss outpatient treatment with Dr. Fitzgerald on Friday if possible. (2)Urinary Tract Infection Assessment/Plan: Patient reportedly had a left ureteral stent placed by urology in [place] in late March. His urologist is Dr. Jaime Winchester ([phone]). The staff and his urine and blood may be related to his recent procedure and also possibly his port. Continue to monitor. Send repeat urine culture. (3)Hypertension Assessment/Plan: Hold metoprolol and restart sotalol. (4)Atrial Fibrillation Assessment/Plan: Restart apixaban 5 mg twice daily. Restart sotalol at 80 mg twice daily (5)Hematuria Assessment/Plan: Continue to monitor. (6) Bladder Cancer Assessment/Plan: Patient reportedly has a diagnosis of bladder cancer metastatic to lung. He reports his oncologist is Dr. Gonzalez in [facility]. 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 He reports he has lost about 35 pounds since his bladder cancer diagnosis in February 2023. Currently he is severely disabled and his Karnofsky performance scale score is approximately 30. - Current Meds Current Meds: Current Medications Generic Name Dose Route Start Last Admin Trade Name Freq PRN Reason Stop Dose Admin Acetaminophen 650 mg 04/07/24 20:55 04/08/24 00:26 Acetaminophen 325 Mg Tablet PO 650 mg Q4HR PRN Administration Pain 1 to 4, or Fever Hydrocodone Bitart/Acetaminophen 1 tab 04/08/24 08:38 04/11/24 01:39 Hydrocod/Acetam 5/325 Mg Tablet PO 1 tab Q4HR PRN Administration Moderate Pain (Level 4-6) Apixaban 5 mg 04/10/24 21:00 04/10/24 21:17 Apixaban 5 Mg Tablet PO Not Given BID THERESA Atorvastatin Calcium 40 mg 04/08/24 21:00 04/10/24 21:16 Atorvastatin 40 Mg Tablet PO 40 mg QPM THERESA Administration Fentanyl 1 patch 04/10/24 08:18 04/10/24 08:35 Fentanyl 12 Mcg Patch TOP 1 patch Q3D THERESA Administration Vancomycin HCl 1 gm/ Sodium 250 mls @ 167 mls/hr 04/08/24 11:00 04/11/24 02:20 Chloride IV Infused Q12H THERESA Infusion Metoprolol Tartrate 12.5 mg 04/10/24 21:00 04/10/24 21:16 Metoprolol Tartrate 25 Mg Tablet PO 12.5 mg BID THERESA Administration Multivitamins/Minerals 1 tab 04/09/24 17:00 04/10/24 08:32 Multivitamin W/Minerals Tablet PO 1 tab DAILYWM THERESA Administration Polyethylene Glycol 17 gm 04/10/24 09:00 04/10/24 08:46 Polyethylene Glycol 3350 17 Gm Packet PO Not Given DAILY THERESA Sodium Chloride 10 ml 04/08/24 01:00 04/10/24 23:47 Sodium Chloride Flush 0.9% 10 Ml Syringe IVP 10 ml 0100,0900,1700 THERESA Administration Tamsulosin HCl 0.4 mg 04/10/24 21:00 04/10/24 21:16 Tamsulosin 0.4 Mg Capsule PO 0.4 mg HS THERESA Administration - Lab Result Fish Bone Diagrams: 04/11/24 04:55 04/11/24 04:55 - Additional Planning My Orders: My Active Orders 04/10/24 08:18 fentaNYL 12 MCG PATCH [Duragesic] 1 patch TOP Q3D 04/10/24 09:00 polyethylene glycoL 3350 [Miralax] 17 gm PO DAILY 04/10/24 10:00 Blood Culture [CULTURE, BLOOD #1] [] Routine 04/10/24 15:45 CUL, URINE [RM] Routine 04/10/24 21:00 Apixaban [Eliquis] 5 mg PO BID Metoprolol Tartrate [Lopressor] 12.5 mg PO BID Tamsulosin [Flomax] 0.4 mg PO HS 04/11/24 09:00 Folic Acid 1 mg PO DAILY Pantoprazole [Protonix] 40 mg PO DAILY Subjective - Subjective Patient Reports: Other (Alert. Continues to complain of weakness and cannot get out of bed. He reports he has been basically bedbound for several weeks. When he does get up he uses a wheelchair. He reports he can sit up for approximately 30 minutes before having to lie back down in bed.) Objective Vital Signs: Vital Signs - 24 hr 04/10/24 04/10/24 04/10/24 07:56 15:49 23:45 Temperature 37 C 37.4 C 37.1 C Heart Rate [ 108 H 107 H 118 H Brachial] Respiratory 18 16 16 Rate Blood Pressure 117/68 126/80 101/66 [Right Brachial artery] O2 Saturation 93 97 Oxygen O2 Source Room air I&O (Last 24 Hrs): Intake and Output Totals x24h 04/09/24 04/10/24 04/11/24 23:59 23:59 23:59 Intake Total 0542.293 3979 250 Output Total 300 250 Balance 5608.918 9318 0 General: Alert, No acute distress HEENT: Atraumatic Neck: No JVD, No thyromegaly Lymphatic: no adenopathy Neuro: Alert, Non Focal Cardiovascular: Other (Positive S1-S2 no extra heart sounds.) Respiratory: Other (Good air exchange in all lung stewart no wheezing no crackles.) Abdomen: Other (Soft nontender nondistended positive bowel sounds.) Extremities: No cyanosis, No edema Skin: No rashes - Results Results: Laboratory Results WBC 15.3 x10^3/uL (4.8-10.8) H 04/11/24 04:55 RBC 3.22 10^6/uL (4.70-6.10) L 04/11/24 04:55 Hgb 8.2 g/dL (14.0-18.0) L 04/11/24 04:55 Hct 28.3 % (42.0-52.0) L 04/11/24 04:55 MCV 87.9 fL (80.0-94.0) 04/11/24 04:55 MCH 25.5 pg (27.0-31.0) L 04/11/24 04:55 MCHC 29.0 g/dL (32.0-36.0) L 04/11/24 04:55 RDW 18.1 % (12.0-15.0) H 04/11/24 04:55 Plt Count 433 10^3/uL (130-450) 04/11/24 04:55 MPV 8.9 fL (7.4-11.4) 04/11/24 04:55 Neut # (Auto) 12.4 10^3/uL (1.5-6.6) H 04/11/24 04:55 Lymph # (Auto) 1.4 10^3/uL (1.5-3.5) L 04/11/24 04:55 Oliver # (Auto) 0.8 10^3/uL (0.0-1.0) 04/11/24 04:55 Eos # (Auto) 0.5 10^3/uL (0.0-0.7) 04/11/24 04:55 Baso # (Auto) 0.1 10^3/uL (0.0-0.1) 04/11/24 04:55 Absolute Nucleated RBC 0.00 x10^3/uL 04/11/24 04:55 Nucleated RBC % 0.0 /100WBC 04/11/24 04:55 Manual Slide Review Indicated 04/07/24 17:23 Platelet Estimate INCREASED (>450,000) (NORMAL) 04/07/24 17:23 Platelet Morphology NORMAL APPEARANCE (NORMAL) 04/07/24 17:23 RBC Morph Micro Appear 1+ ANISOCYTOSIS (NORMAL) 1+ MICROCYTOSIS (NORMAL) 04/07/24 17:23 RBC Morph Micro Appear 1+ ANISOCYTOSIS (NORMAL) 1+ MICROCYTOSIS (NORMAL) 04/07/24 17:23 Sodium 139 mmol/L (135-145) 04/11/24 04:55 Potassium 3.8 mmol/L (3.5-4.5) 04/11/24 04:55 Chloride 105 mmol/L (101-111) 04/11/24 04:55 Carbon Dioxide 30 mmol/L (21-32) 04/11/24 04:55 Anion Gap 4.0 (6-13) L 04/11/24 04:55 BUN 10 mg/dL (6-20) 04/11/24 04:55 Creatinine 0.4 mg/dL (0.6-1.3) L 04/11/24 04:55 Estimated GFR (MDRD) 208 (>89) 04/11/24 04:55 Glucose 100 mg/dL (74-104) 04/11/24 04:55 Lactic Acid 2.2 mmol/L (0.5-2.2) 04/07/24 17:29 Calcium 9.1 mg/dL (8.5-10.3) 04/11/24 04:55 Phosphorus 2.5 mg/dL (2.5-5.0) 04/10/24 10:04 Magnesium 1.5 mg/dL (1.7-2.3) L 04/10/24 10:04 Total Bilirubin 0.4 mg/dL (0.2-1.0) 04/07/24 17:23 AST 23 IU/L (10-42) 04/07/24 17:23 ALT 19 IU/L (10-60) 04/07/24 17:23 Alkaline Phosphatase 112 IU/L (42-121) 04/07/24 17:23 Total Protein 5.8 g/dL (6.4-8.9) L 04/07/24 17:23 Albumin 2.3 g/dL (3.2-5.5) L 04/07/24 17:23 Globulin 3.5 g/dL (2.1-4.2) 04/07/24 17:23 Albumin/Globulin Ratio 0.7 (1.0-2.2) L 04/07/24 17:23 Lipase 19 U/L (11-82) 04/07/24 17:23 Nasal Screen MRSA (PCR) NEGATIVE (NEGATIVE) 04/07/24 23:40 Last Dose Date [facility] 04/10/24 10:04 Last Dose Time [facility] 04/10/24 10:04 Vancomycin Trough 17.8 ug/mL 04/10/24 10:04
[2024-04-11] MEDS: PANTOPRAZOLE 40 MG TABLET PO SCH (08:46)
[2024-04-11] MEDS: FOLIC ACID 1 MG TABLET PO SCH (08:46)
[2024-04-11] MEDS: SOTALOL 80 MG TABLET PO SCH (13:13)
[2024-04-11] MEDS: VANCOMYCIN INJ 1 GM in SODIUM CHLORIDE 0.9% 250 ML IV SCH (23:52)
[2024-04-12 06:09] LABS: MAGNESIUM 1.5 mg/dL (1.7-2.3); PHOSPHORUS 3.1 mg/dL (2.5-5.0)
[2024-04-12 06:17] LABS: CALCIUM 9.1 mg/dL (8.5-10.3); CREATININE 0.4 mg/dL (0.6-1.3); POTASSIUM 3.8 mmol/L (3.5-4.5)
--- NOTE | 2024-04-12 13:03 | XRAY Report ---
PROCEDURE: Chest for Line Placement INDICATIONS: PICC line TECHNIQUE: One view of the chest was acquired. COMPARISON: None. FINDINGS: Surgical changes and devices: Right PICC is seen with tip projecting over the right subclavian versu s innominate vein. Lungs and pleura: Diffuse right upper and mid lung zone opacities. Small right pleural effusion. Lef t lung is clear. Mediastinum: Mediastinal contours appear normal. Heart size is normal. Bones and chest wall: No suspicious bony lesions. Overlying soft tissues appear unremarkable. Old healed right clavicular fracture. IMPRESSION: 1.Right PICC terminates in the region of the right innominate vein or central portion of the subclavi an vein. 2.Diffuse right lung opacities and suspected small right pleural effusion. Reviewed by: Aiden Zimmerman MD on 04/12/2024 1:01 PM PDT Approved by: Aiden Zimmerman MD on 04/12/2024 1:01 PM PDT Station ID: [id number]
--- NOTE | 2024-04-12 14:23 | CONSULTATION NOTE ---
Consultation Report: R PICC line attempted under sterile technique, unable to thread past 33cm. Line secured and port CXR obtained. Catheter is a midline. Discussed with Dr. Rose who states midline is not acceptable. Discussed with the patient who requests waiting before re-attempting to place PICC line. Midline removed with ease.
--- NOTE | 2024-04-12 14:45 | PROVIDER PROGRESS NOTE ---
Assessment/Plan - Problem List (1) Bacteremia due to methicillin resistant Staphylococcus epidermidis Assessment/Plan: Mr Godoy has had 3 blood cultures drawn on April 06, 2024. 2 sets of blood cultures were taken from his right port and 1 set of blood cultures was taken from his left arm. All the blood cultures are growing gram-positive cocci in clusters and PCR is positive for Staphylococcus epidermidis with MEC A/C gene. Urine culture is also growing Staphylococcus epidermidis. Since he has received multiple doses of IV vancomycin, his blood cultures have been negative since April 07, 2024 and his urine culture performed on April 10, 2024 also was negative. Plan: Continue treatment with vancomycin intravenously 1 g twice daily Echocardiogram completed today. The report is still pending and will require follow-up. Port-a-cath removed 04/09/2024.A PICC line was attempted to be placed on April 12, 2024 but was not successful on first attempt. Appreciate work of anesthesia and eventual placement of PICC. Patient needs a PICC line to receive daptomycin as an outpatient and possibly chemotherapy. Patient should receive a total of 14 days of daptomycin as an outpatient.Prior to initiating treatment with daptomycin, patient should have a CK drawn and a CK performed twice weekly. He should also have CBC and CMP done weekly.If you have questions recommend you contact Dr. Fitzgerald. Please refer patient to Dr. Fitzgerald upon discharge. I have attempted to contact the patient's oncologist who works in the [facility]. His name is Gaviota Gonzalez MD. I have requested a call back to the cell phone used by the hospitalist. (2)Urinary Tract Infection Assessment/Plan: Patient reportedly had a left ureteral stent placed by urology in [place] in late March. His urologist is Dr. Jaime Winchester ([phone]). The staff and his urine and blood may be related to his recent procedure and also possibly his port. Since removal of his Port-A-Cath, patient's blood cultures have been negative. A repeat urine culture was also negative. (3)Hypertension Assessment/Plan: Continue sotalol 80 mg twice daily. Metoprolol currently on hold. (4)Atrial Fibrillation Assessment/Plan: Apixaban 5 mg twice daily. Continue sotalol 80 mg twice daily. (5)Hematuria Assessment/Plan: Continue to monitor. He may require apixaban holiday. (6) Bladder Cancer Assessment/Plan: Patient reportedly has a diagnosis of bladder cancer metastatic to lung. He reports his oncologist is Dr. Gonzalez in [facility]. 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 He reports he has lost about 35 pounds since his bladder cancer diagnosis in February 2023. Currently he is severely disabled and his Karnofsky performance scale score is approximately 30. Recommend discussing with his oncologist because he may not be a candidate for chemotherapy. Continue to discuss goals of care with patient. - Current Meds Current Meds: Current Medications Generic Name Dose Route Start Last Admin Trade Name Freq PRN Reason Stop Dose Admin Acetaminophen 650 mg 04/07/24 20:55 04/08/24 00:26 Acetaminophen 325 Mg Tablet PO 650 mg Q4HR PRN Administration Pain 1 to 4, or Fever Hydrocodone Bitart/Acetaminophen 1 tab 04/08/24 08:38 04/11/24 21:01 Hydrocod/Acetam 5/325 Mg Tablet PO 1 tab Q4HR PRN Administration Moderate Pain (Level 4-6) Apixaban 5 mg 04/10/24 21:00 04/12/24 09:45 Apixaban 5 Mg Tablet PO 5 mg BID THERESA Administration Atorvastatin Calcium 40 mg 04/08/24 21:00 04/11/24 20:41 Atorvastatin 40 Mg Tablet PO 40 mg QPM THERESA Administration Fentanyl 1 patch 04/10/24 08:18 04/10/24 08:35 Fentanyl 12 Mcg Patch TOP 1 patch Q3D THERESA Administration Folic Acid 1 mg 04/11/24 09:00 04/12/24 09:45 Folic Acid 1 Mg Tablet PO 1 mg DAILY THERESA Administration Vancomycin HCl 1 gm/ Sodium 250 mls @ 167 mls/hr 04/12/24 00:00 04/12/24 12:20 Chloride IV 167 mls/hr Q12H THERESA Administration Multivitamins/Minerals 1 tab 04/09/24 17:00 04/12/24 08:35 Multivitamin W/Minerals Tablet PO 1 tab DAILYWM THERESA Administration Pantoprazole Sodium 40 mg 04/11/24 09:00 04/12/24 09:45 Pantoprazole 40 Mg Tablet PO 40 mg DAILY THERESA Administration Polyethylene Glycol 17 gm 04/10/24 09:00 04/12/24 09:45 Polyethylene Glycol 3350 17 Gm Packet PO Not Given DAILY THERESA Sodium Chloride 10 ml 04/08/24 01:00 04/12/24 09:46 Sodium Chloride Flush 0.9% 10 Ml Syringe IVP 10 ml 0100,0900,1700 THERESA Administration Sotalol HCl 80 mg 04/11/24 13:00 04/12/24 09:45 Sotalol 80 Mg Tablet PO 80 mg BID THERESA Administration Tamsulosin HCl 0.4 mg 04/10/24 21:00 04/11/24 20:41 Tamsulosin 0.4 Mg Capsule PO 0.4 mg HS THERESA Administration - Lab Result Fish Bone Diagrams: 04/11/24 04:55 04/12/24 05:43 - Additional Planning My Orders: My Active Orders 04/12/24 00:00 Vancomycin Inj [Vancomycin] 1 gm Sodium Chloride 0.9% [Normal Saline 0.9%] 250 ml IV Q12H 04/12/24 10:17 PICC Line Care [RC] Q4H PICC Line Insert [RC] .ONCE 04/12/24 Lunch Regular Diet [DIET] Subjective - Subjective Patient Reports: Other (Alert. Continues to complain of weakness but sat up in a chair for 30 minutes yesterday. He feels his chest pain related to his cancer diagnosis is well-controlled. He denies shortness of breath and abdominal herbert n. He has no other complaints at this time.) Objective Vital Signs: Vital Signs - 24 hr 04/11/24 04/11/24 04/12/24 15:35 23:56 07:23 Temperature 37.1 C 37.0 C 37 C Heart Rate [ 97 84 Brachial] Respiratory 16 16 18 Rate Blood Pressure 114/67 [Left Brachial artery] Blood Pressure 121/67 121/71 [Right Brachial artery] O2 Saturation 92 93 92 Oxygen O2 Source Room air I&O (Last 24 Hrs): Intake and Output Totals x24h 04/10/24 04/11/24 04/12/24 23:59 23:59 23:59 Intake Total 3220 980 830 Output Total 300 900 90 Balance 2920 80 740 General: Alert, Oriented x3, No acute distress Neck: Supple, No JVD Neuro: Alert, Non Focal Cardiovascular: Other (Positive S1-S2 no extra heart sounds.) Respiratory: Other (Good air exchange in all lung stewart no wheezing no crackles.) Abdomen: Other (Soft nontender positive bowel sounds) Extremities: No cyanosis, No edema Skin: No rashes - Results Results: Laboratory Results WBC 15.3 x10^3/uL (4.8-10.8) H 04/11/24 04:55 RBC 3.22 10^6/uL (4.70-6.10) L 04/11/24 04:55 Hgb 8.2 g/dL (14.0-18.0) L 04/11/24 04:55 Hct 28.3 % (42.0-52.0) L 04/11/24 04:55 MCV 87.9 fL (80.0-94.0) 04/11/24 04:55 MCH 25.5 pg (27.0-31.0) L 04/11/24 04:55 MCHC 29.0 g/dL (32.0-36.0) L 04/11/24 04:55 RDW 18.1 % (12.0-15.0) H 04/11/24 04:55 Plt Count 433 10^3/uL (130-450) 04/11/24 04:55 MPV 8.9 fL (7.4-11.4) 04/11/24 04:55 Neut # (Auto) 12.4 10^3/uL (1.5-6.6) H 04/11/24 04:55 Lymph # (Auto) 1.4 10^3/uL (1.5-3.5) L 04/11/24 04:55 Morrison # (Auto) 0.8 10^3/uL (0.0-1.0) 04/11/24 04:55 Eos # (Auto) 0.5 10^3/uL (0.0-0.7) 04/11/24 04:55 Baso # (Auto) 0.1 10^3/uL (0.0-0.1) 04/11/24 04:55 Absolute Nucleated RBC 0.00 x10^3/uL 04/11/24 04:55 Nucleated RBC % 0.0 /100WBC 04/11/24 04:55 Manual Slide Review Indicated 04/07/24 17:23 Platelet Estimate INCREASED (>450,000) (NORMAL) 04/07/24 17:23 Platelet Morphology NORMAL APPEARANCE (NORMAL) 04/07/24 17:23 RBC Morph Micro Appear 1+ ANISOCYTOSIS (NORMAL) 1+ MICROCYTOSIS (NORMAL) 04/07/24 17:23 RBC Morph Micro Appear 1+ ANISOCYTOSIS (NORMAL) 1+ MICROCYTOSIS (NORMAL) 04/07/24 17:23 Sodium 138 mmol/L (135-145) 04/12/24 05:43 Potassium 3.8 mmol/L (3.5-4.5) 04/12/24 05:43 Chloride 105 mmol/L (101-111) 04/12/24 05:43 Carbon Dioxide 31 mmol/L (21-32) 04/12/24 05:43 Anion Gap 2.0 (6-13) L 04/12/24 05:43 BUN 10 mg/dL (6-20) 04/12/24 05:43 Creatinine 0.4 mg/dL (0.6-1.3) L 04/12/24 05:43 Estimated GFR (MDRD) 208 (>89) 04/12/24 05:43 Glucose 98 mg/dL (74-104) 04/12/24 05:43 Lactic Acid 2.2 mmol/L (0.5-2.2) 04/07/24 17:29 Calcium 9.1 mg/dL (8.5-10.3) 04/12/24 05:43 Phosphorus 3.1 mg/dL (2.5-5.0) 04/12/24 05:43 Magnesium 1.5 mg/dL (1.7-2.3) L 04/12/24 05:43 Total Bilirubin 0.4 mg/dL (0.2-1.0) 04/07/24 17:23 AST 23 IU/L (10-42) 04/07/24 17:23 ALT 19 IU/L (10-60) 04/07/24 17:23 Alkaline Phosphatase 112 IU/L (42-121) 04/07/24 17:23 Total Protein 5.8 g/dL (6.4-8.9) L 04/07/24 17:23 Albumin 2.3 g/dL (3.2-5.5) L 04/07/24 17:23 Globulin 3.5 g/dL (2.1-4.2) 04/07/24 17:23 Albumin/Globulin Ratio 0.7 (1.0-2.2) L 04/07/24 17:23 Lipase 19 U/L (11-82) 04/07/24 17:23 Nasal Screen MRSA (PCR) NEGATIVE (NEGATIVE) 04/07/24 23:40 Last Dose Date [facility] 04/10/24 10:04 Last Dose Time [facility] 04/10/24 10:04 Vancomycin Trough 17.8 ug/mL 04/10/24 10:04
--- NOTE | 2024-04-12 15:57 | XRAY Report ---
PROCEDURE: Chest for Line Placement INDICATIONS: PICC line TECHNIQUE: One view of the chest was acquired. COMPARISON: Chest radiograph 04/12/2024 FINDINGS: Surgical changes and devices: Right-sided PICC is seen with tip projecting to the region of the conf luence of the innominate veins. Lungs and pleura: Stable right upper lung zone opacities. Small right pleural effusion. No pneumotho rax. Mediastinum: Mediastinal contours appear normal. Heart size is normal. Bones and chest wall: No suspicious bony lesions. Overlying soft tissues appear unremarkable. IMPRESSION: Right-sided PICC with tip projecting to the confluence of the innominate veins. Stable right pulmonar y opacities. Reviewed by: Aiden Zimmerman MD on 04/12/2024 3:56 PM PDT Approved by: Aiden Zimmerman MD on 04/12/2024 3:56 PM PDT Station ID: [id number]
[2024-04-12] MEDS: SODIUM CHLORIDE FLUSH 0.9% 10 ML SYRINGE IVP PRN (16:38)
[2024-04-12] MEDS: MAGNESIUM SULFATE 1 GM in SODIUM CHLORIDE 0.9% 50 ML IV ONE (16:38)
--- NOTE | 2024-04-12 17:46 | ANESTHESIA PROCEDURE NOTE ---
Anesth Central Line Template - Central Line Central Line Preparation: Consent Obtained Central line location: Right Basilic Central line type: PICC Single Lumen Central line catheter tip site resides: Superior vena cava (SVC) (proximal tip of SVC at confluence of inominate veins) Central line aftercare: Secured, Placement confirmed, No pneumothorax, No complications, Bundle checklist complete, Pt tolerated well
--- NOTE | 2024-04-12 17:49 | CONSULTATION NOTE ---
Consultation Report: midline removed and new PICC line placed in RUE under US guidance. Single lumen 4Fr, trimmed to 40cm. Port flushes and aspirated easily. Sterile technique maintained. Pt tolerated well. NAC. Placement confirmed with portable CXR.
[2024-04-12 23:55] VITALS: O2SAT 93
[2024-04-13 06:52] LABS: HGB - HEMOGLOBIN 8.3 g/dL (14.0-18.0); MEAN CORPUSCULAR HEMOGLOBIN 24.8 pg (27.0-31.0); MEAN CORPUSCULAR HGB CONC 27.7 g/dL (32.0-36.0); MEAN CORPUSCULAR VOLUME 89.6 fL (80.0-94.0); MEAN PLATELET VOLUME 8.9 fL (7.4-11.4); RED BLOOD COUNT 3.35 10^6/uL (4.70-6.10); RED CELL DISTRIBUTION WIDTH 18.5 % (12.0-15.0); WHITE BLOOD COUNT 18.2 x10^3/uL (4.8-10.8)
[2024-04-13 07:17] LABS: CALCIUM 9.1 mg/dL (8.5-10.3); CREATININE 0.4 mg/dL (0.6-1.3); MAGNESIUM 1.7 mg/dL (1.7-2.3); PHOSPHORUS 3.6 mg/dL (2.5-5.0); POTASSIUM 3.6 mmol/L (3.5-4.5)
[2024-04-13 07:33] VITALS: BP 146/69
--- NOTE | 2024-04-13 10:40 | Discharge Plan ---
"Discharge Plan for SNF / [facility] - Discharge Plan And Transition Orders Problem Reviewed?: Yes Disposition: 03 SNF DC/Xfer Condition: Good Allergies and Adverse Reactions: Allergies Allergy/AdvReac Type Severity Reaction Status Date / Time amiodarone Allergy Dizziness Verified 04/07/24 16:54 - SNF / SENIOR CARE Transition Orders Medicare Certification Statement: I certify that Post Hospital fpc care is medically necessary on a continuing basis for any of the conditions for which she/he is receiving care during hospitalization. Notify PCP of admission and forward orders to primary provider for signature. Other Notification Orders: Call PCP immediately if patient develops dyspnea, chest pain/tightness or edema. Additional Bowel Program Orders: If no BM after 2 days, nurse may give M.O.M. 30ml PO PRN and/or ducolax Supp 1 IA and/or YOSELYN 250mg P.O., and/or senna 1-2 tabs PO. On day 3 nurse may give repeat above order until residents constipation is resolved. Treatments & Other Orders: Atorvastatin held due to interaction with Daptomycin. Can resume atorvastatin after 14 days of daptomycin complete. Please perform CK twice weekly and CBC, CMP weekly Oxygen Orders: Maintain O2 greater than 88%. Medication Orders: PLEASE REFER TO THE DISCHARGE MEDICATION LIST. - Medications New Prescriptions: DAPTOmycin in 0.9 % sod chlor [Daptomycin 500 mg/50 ml-Ns Bag] 500 mg IV DAILY 14 Days #700 ml - Diet Type: Geriatric Texture: Regular Liquids: Thin May have monthly special meal: Yes - Therapies | Activity Therapy: Evaluation | Treat if indicated: PT, OT Rehabilitation Potential: Maximize functional status Activity: Activity as Tolerated"
--- NOTE | 2024-04-13 11:15 | DISCHARGE SUMMARY ---
Discharge Summary Admit Date: 04/07/24 Discharge Date: 04/13/24 Discharging Provider: Ty Roberson Code Status: Do Not Attempt Resuscitation Condition at Discharge: Good Discharge Disposition: SNF DC/Xfer Discharge Facility Name: [facility] - [facility] History of Present Illness: Mr Godoy is a 78 yo M with history of HTN, HLD, CAD with hx PCI, paroxysmal A fib on Eliquis. He presented to the ER yesterday with complaints of painless hematuria, work up revealed leukocytosis WBC 22 (had WBC 26 a few days prior), positive UA, treated with IV ceftriaxone. He has recent history of nephrolithiasis and status post L ureteral stent (follows with urology in [place]). CT abd 04/06 did not demonstrate any abnormalities related to the stent. Blood culture today returned positive for gram positive cocci (1 site) and patient was asked to return to the ER - within that time cultures showed coag neg staph. Urology recommends admission to monitor for fevers, etc. Noted second site now also GPC positive. Patient denies any fevers, chills, chest pain, cough, shortness of breath, abd pain, n/v. He has chronic low back pain which is unchanged. He denies dysuria, but he has been having hematuria for about a week - he states that this is not new, he has a history of intermittent hematuria. Reports taking home medications as prescribed, including Eliquis BID. - HOSPITAL COURSE Hospital Course: Patient is a 78-year-old male who presented to the ED on 04/06 due to complaints of hematuria. Previous to this, patient had a positive UA treated with IV ceftriaxone and also has a history of nephrolithiasis with a left ureteral stent that was placed in [place]. Patient has CT scan of his abdomen/pelvis on 04/06 which did not demonstrate any abnormalities related to the stent. On day of admission, patient was called back due to a positive blood culture for gram-positive cocci. Patient was admitted and started on IV vancomycin and ceftriaxone. The source of his infection was believed to be the urine as a urine culture from 04/06 showed growth of Staphylococcus epidermidis. Repeat blood cultures including 1 taken from the port was positive for Staph epidermidis. General surgery was consulted for port removal which was performed on 04/09. Repeat blood cultures on 04/07, 04/09, and 04/10 did not show any further growth of bacteria. I TTE was performed which did not show any evidence of vegetations. Case was discussed with infectious disease at an outside hospital who recommended 14 days of daptomycin upon discharge. A PICC line was placed and the patient will be started on IV daptomycin at [facility]. He is recommended to have a CK level drawn twice weekly along with a CBC and CMP weekly. Of note, his atorvastatin was held on discharge due to interaction with daptomycin. This can resumed after completing antibiotics. - ALLERGIES Allergies/Adverse Reactions: Allergies Allergy/AdvReac Type Severity Reaction Status Date / Time amiodarone Allergy Dizziness Verified 04/07/24 16:54 - MEDICATIONS Home Medications: Ambulatory Orders Medication Instructions Recorded Confirmed Apixaban [Eliquis] 5 mg PO BID 03/11/20 04/09/24 Aspirin [Aspirin EC] 81 mg PO DAILY PM 03/11/20 04/09/24 Sotalol [Betapace] 80 mg PO BID 03/11/20 04/09/24 Acetaminophen [Aphen] 2 tab PO Q4H PRN 04/09/24 04/09/24 Bisacodyl Supp [Dulcolax Supp] 10 mg [place] PRN PRN 04/09/24 04/09/24 Cholecalciferol (Vitamin D3) 25 mcg PO DAILY 04/09/24 04/09/24 [Vitamin D3] Cyanocobalamin (Vitamin B-12) 1,000 mcg PO DAILY 04/09/24 04/09/24 [Vitamin B-12 (1000 mcg sublingual)] Folic Acid 1 mg PO DAILY 04/09/24 04/09/24 Loperamide HCl [Imodium A-D] 4 mg PO PRN PRN 04/09/24 04/09/24 Magnesium Oxide 400 mg PO DAILY 04/09/24 04/09/24 Metoprolol Succinate [Toprol Xl] 50 mg PO BID 04/09/24 04/09/24 Mineral Oil [Mineral Oil Enema] 1 each [place] PRN PRN 04/09/24 04/09/24 Naloxone HCl [Narcan] 1 spray IN PRN PRN 04/09/24 04/09/24 Pantoprazole [Protonix] 40 mg PO DAILY 04/09/24 04/09/24 Potassium Chloride [Klor-Con 10] 10 meq PO DAILY 04/09/24 04/09/24 Pyridoxine HCl (Vitamin B6) 100 mcg PO DAILY 04/09/24 04/09/24 [Vitamin B6] Sennosides 2 tab PO PRN PRN 04/09/24 04/09/24 Sennosides [Senna] 1 tab PO BID 04/09/24 04/09/24 Tamsulosin [Flomax] 0.4 mg PO HS 04/09/24 04/09/24 fentaNYL 12 MCG PATCH [Duragesic 12 mcg TOP Q3D 04/09/24 04/09/24 12mcg patch] polyethylene glycoL 3350 17 g PO PRN PRN 04/09/24 04/09/24 [Polyethylene Glycol 3350] DAPTOmycin in 0.9 % sod chlor 500 mg IV DAILY 14 Days #700 ml 04/13/24 [Daptomycin 500 mg/50 ml-Ns Bag] - PHYSICAL EXAM AT DISCHARGE General Appearance: positive: No acute distress, Alert Respiratory: positive: Chest non-tender, No respiratory distress, Breath sounds nml Cardiovascular: positive: Regular rate & rhythm, No murmur, No gallop Abdomen: positive: Non-tender, No organomegaly, Nml bowel sounds Neurologic/Psychiatric: positive: Oriented x3, CN's nml (2-12) - LABS Result Diagrams: 04/13/24 06:45 04/13/24 06:45 - FOLLOW UP Follow Up: Follow up with PCP in 3-5 days. Please follow up with Urology and Oncology. - TIME SPENT Time Spent in Discharge (Minutes): 30
== END 2024-04-13 14:15 | DRG 690 ==
LOC: EDUNIT# → ED 16:50 → MS2 20:55 → OBSVTOIN 04-08 12:59
PROVIDERS: ADMIT Student in an Organized Health Care Education/Training Program; ATTEND Family Medicine
PROC: 0JPT3WZ Removal of Totally Implantable Vascular Access Device from Trunk Subcutaneous Tissue and Fascia, Percutaneous Approach (ICD-10-PCS; principal; 2024-04-09 13:30)
PROC: 02HV33Z Insertion of Infusion Device into Superior Vena Cava, Percutaneous Approach (ICD-10-PCS; 2024-04-12)
DX: N30.91 Cystitis, unspecified with hematuria (principal); N39.0 Urinary tract infection, site not specified; T80.212A Local infection due to central venous catheter, initial encounter; C78.01 Secondary malignant neoplasm of right lung; I48.91 Unspecified atrial fibrillation; B95.7 Other staphylococcus as the cause of diseases classified elsewhere; B96.89 Other specified bacterial agents as the cause of diseases classified elsewhere; R31.9 Hematuria, unspecified; Z96.0 Presence of urogenital implants; I10 Essential (primary) hypertension; I48.0 Paroxysmal atrial fibrillation; Z79.01 Long term (current) use of anticoagulants; C67.9 Malignant neoplasm of bladder, unspecified; R07.9 Chest pain, unspecified; M54.50 Low back pain, unspecified; Z79.82 Long term (current) use of aspirin; R53.1 Weakness; E78.5 Hyperlipidemia, unspecified; Z66 Do not resuscitate; I25.10 Atherosclerotic heart disease of native coronary artery without angina pectoris; G89.29 Other chronic pain; Z87.442 Personal history of urinary calculi; Z95.5 Presence of coronary angioplasty implant and graft
CPT/HCPCS: 36415; 80048; 80053; 80202; 82550; 83605; 83690; 83735; 84100; 85025; 85027; 87040; 87086; 87640; 93307; 96365; 96366; 96375; 97163; 97166; 99284; 99285; A9270; C1751; G0378; J2372; J3370; J7040

== ENCOUNTER 2024-04-13 14:19 | Outpatient (CLI) | payer MEDICARE, OTHER | END 2024-04-13 23:59 | LOC: EMS 14:19 | PROVIDERS: ATTEND Family Medicine | DX: N39.0 Urinary tract infection, site not specified (principal); B95.62 Methicillin resistant Staphylococcus aureus infection as the cause of diseases classified elsewhere; Z74.01 Bed confinement status | CPT/HCPCS: A0425; A0428 ==

== ENCOUNTER 2024-04-14 07:09 | Outpatient (CLI) | payer MEDICARE, OTHER ==
[2024-04-14 07:43] LABS: CALCIUM 9.2 mg/dL (8.5-10.3); CREATININE 0.4 mg/dL (0.6-1.3); POTASSIUM 3.7 mmol/L (3.5-4.5)
== END 2024-04-14 07:10 | disposition home or self-care (01) ==
LOC: LAB.R 07:09
PROVIDERS: ATTEND Registered Nurse
DX: N13.2 Hydronephrosis with renal and ureteral calculous obstruction (principal); R78.1 Finding of opiate drug in blood
CPT/HCPCS: 80048

== ENCOUNTER 2024-04-16 12:17 | Outpatient (CLI) | payer MEDICARE, OTHER | END 2024-04-16 23:59 | disposition E | LOC: EMS 12:17 ==